=== PATIENT | male | born 1975 | race Caucasian/White ===

== ENCOUNTER → 2020-07-26 | Outpatient (CLI) | payer MEDICARE, OTHER ==
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
--- NOTE | 2020-07-26 12:34 | US ---
EXAMINATION TYPE: US gallbladder DATE OF EXAM: 07/26/2020 COMPARISON: NONE CLINICAL HISTORY: 45-year-old male R11.14 vomiting. Vomiting episodes since Apr 30, history of seizur es TECHNIQUE: Multiple sonographic images of the right upper quadrant are obtained. FINDINGS: EXAM MEASUREMENTS: Liver Length: 15.0 cm Gallbladder Wall: 0.3 cm CBD: 0.5 cm Right Kidney: 11.4 x 5.2 x 5.7 cm Pancreas: Only a portion of the pancreatic body is visualized. Remainder is secured by bowel gas sha dowing. Liver: Mild increased echogenicity. No focal lesion. Gallbladder: comet tail artifact along the anterior wall suggests adenomyomatosis. No hydropic mota e or shadowing calculi. No surrounding fluid. Evidence for sonographic Pickard's sign: no CBD: wnl Right Kidney: wnl IMPRESSION: 1. There may be mild fatty infiltration of the liver. 2. Incidental gallbladder wall adenomyomatosis. No gallstones or acute cholecystitis. 3. No biliary ductal dilatation.
== END | disposition home or self-care (01) ==
LOC: RADCTMAIN 09:54
PROVIDERS: ATTEND Family Medicine
DX: G31.9 Degenerative disease of nervous system, unspecified (principal); D13.5 Benign neoplasm of extrahepatic bile ducts; Z88.1 Allergy status to other antibiotic agents
CPT/HCPCS: 70450; 76705

== ENCOUNTER 2022-08-14 14:57 | Inpatient (IN) | payer MEDICARE, OTHER ==
[2022-08-14] MEDS ORDERED: LORazepam 0.5 MG TAB PO PRN (16:21)
[2022-08-14] MEDS ORDERED: LORazepam 1 MG TAB PO PRN ×4 (16:21)
[2022-08-14] MEDS ORDERED: THIAMINE 100 MG/ML 2 ML VIAL IM STA (16:21)
[2022-08-14] MEDS ORDERED: SODIUM CHLORIDE 0.9% 1,000 ML IV ONE (16:23)
[2022-08-14 17:19] LABS: ALT 33 U/L (4-49); AST 55 U/L (17-59); African American GFR (CKD) >90 (>60 ml/min/1.73 sqM); Albumin 2.2 g/dL (3.5-5.0); Alkaline Phosphatase 175 U/L (38-126); Amylase 83 U/L (30-110); Anion Gap 6 mmol/L; Blood Urea Nitrogen 10 mg/dL (9-20); Calcium 7.3 mg/dL (8.4-10.2); Carbon Dioxide 19 mmol/L (22-30); Chloride 113 mmol/L (98-107); Glucose 95 mg/dL (74-99); Lipase 402 U/L (23-300); Magnesium 1.7 mg/dL (1.6-2.3); Non-African American GFR(CKD) >90 (>60 ml/min/1.73 sqM); Phosphorus 3.9 mg/dL (2.5-4.5); Potassium 4.1 mmol/L (3.5-5.1); Sodium 138 mmol/L (137-145); Total Bilirubin 6.2 mg/dL (0.2-1.3)
[2022-08-14 17:31] LABS: Basophils % (A) 2 %; Eosinophils % (A) 2 %; HCT 33.8 % (39.0-53.0); HGB 11.8 gm/dL (13.0-17.5); Lymphocytes % (A) 41 %; MCH 39.1 pg (25.0-35.0); MCHC 34.9 g/dL (31.0-37.0); MCV 112.1 fL (80.0-100.0); Macrocytosis Marked; Mean Platelet Volume 9.2; Monocytes # (A) 0.3 k/uL (0-1.0); Monocytes % (A) 11 %; Neutrophils # (A) 1.1 k/uL (1.3-7.7); Neutrophils % (A) 42 %; RBC 3.02 m/uL (4.30-5.90); RDW 15.5 % (11.5-15.5); WBC 2.5 k/uL (3.8-10.6)
--- NOTE | 2022-08-14 18:01 | ED ---
Recheck HPI - General Chief Complaint: Recheck/Abnormal Lab/Rx Stated Complaint: Abd Labs Time Seen by Provider: 08/14/22 16:16 Source: patient, family Mode of arrival: wheelchair Limitations: no limitations - History of Present Illness Initial Comments: Patient is a 47-year-old male sent in by his PCP Dr. Gayle for evaluation of abnormal labs. Patient has history of liver disease, hepatitis B, HIV, schizophrenia, previous methamphetamine abuse. Patient admits to drinking 3 beers a day, his last drink was yesterday. Patient had labs drawn recently, they showed total bilirubin of 8.8 and ammonia 89. He is currently jaundice. Patient denies any abdominal pain, nausea, vomiting. No chest pain or difficulty breathing. Family at bedside notes that he was experiencing tremors and altered mental status yesterday. - Related Data Home Medications Medication Instructions Recorded Confirmed Bictegrav/Emtricit/Tenofov Ala 1 tab PO HS 08/14/22 08/14/22 [Biktarvy 50-200-25 mg Tablet] Lactulose [Constulose] 1 tsp PO DAILY 08/14/22 08/14/22 Melatonin [Melatonin Dissolving] 12 mg PO HS 08/14/22 08/14/22 Omeprazole 20 mg PO DAILY 08/14/22 08/14/22 QUEtiapine [SEROquel] 100 mg PO HS 08/14/22 08/14/22 Spironolactone [Aldactone] 25 mg PO DAILY 08/14/22 08/14/22 Thiamine [Vitamin B-1] 100 mg PO DAILY 08/14/22 08/14/22 levETIRAcetam [Keppra] 1,000 mg PO BID 08/14/22 08/14/22 Allergies Allergy/AdvReac Type Severity Reaction Status Date / Time ciprofloxacin [From Cipro] Allergy Rash/Hives Verified 08/14/22 17:53 ciprofloxacin HCl Allergy Rash/Hives Verified 08/14/22 17:53 [From Cipro] Review of Systems ROS Statement: Those systems with pertinent positive or pertinent negative responses have been documented in the HPI. ROS Other: All systems not noted in ROS Statement are negative. Past Medical History Past Medical History: Hyperlipidemia, Liver Disease, Neurologic Disorder, Skin Disorder, Thyroid Disorder Additional Past Medical History / Comment(s): HIV; hepatitis B (states he is cured); schizophrenia;occasionally has dizziness; History of Any Multi-Drug Resistant Organisms: MRSA Date of last positivie culture/infection: 12/19/14 MDRO Source:: Neck Additional Past Surgical History / Comment(s): fistula removal X2, eye Past Anesthesia/Blood Transfusion Reactions: No Reported Reaction Past Psychological History: Anxiety, Bipolar, Panic Disorder, Schizophrenia Smoking Status: Current every day smoker Past Alcohol Use History: Abuse, Daily, Heavy Past Drug Use History: Methamphetamine - Past Family History Father Family Medical History: Myocardial Infarction (CA) Mother Family Medical History: Cancer General Exam Limitations: no limitations General appearance: alert, in no apparent distress Head exam: Present: atraumatic, normocephalic, normal inspection Eye exam: Present: PERRL, EOMI, scleral icterus Neck exam: Present: normal inspection, full ROM Respiratory exam: Present: normal lung sounds bilaterally. Absent: respiratory distress, wheezes, rales, rhonchi, stridor Cardiovascular Exam: Present: regular rate, normal rhythm, normal heart sounds. Absent: systolic murmur, diastolic murmur, rubs, gallop, clicks GI/Abdominal exam: Present: soft. Absent: distended, tenderness, guarding, rebound, rigid Neurological exam: Present: alert, oriented X3, CN II-XII intact Psychiatric exam: Present: normal affect, normal mood Skin exam: Present: other (jaundiced). Absent: normal color Course Vital Signs 08/14/22 08/14/22 15:00 21:35 Temperature 98.1 F Pulse Rate 93 82 Respiratory 16 14 Rate Blood Pressure 108/71 101/68 O2 Sat by Pulse 100 100 Oximetry Medical Decision Making - Medical Decision Making Was pt. sent in by a medical professional or institution (, PA, COMMERCIAL TECHNICIAN, urgent care, hospital, or half-way...) When possible be specific @ -Sent in by PCP Dr. Gayle Did you speak to anyone other than the patient for history (EMS, parent, family, police, friend...)? What history was obtained from this source @ -No Did you review nursing and triage notes (agree or disagree)? Why? @ -I reviewed and agree with nursing and triage notes Were old charts reviewed (outside hosp., previous admission, EMS record, old EKG, old radiological studies, urgent care reports/EKG's, half-way records)? Report findings @ -No old charts were reviewed Differential Diagnosis (chest pain, altered mental status, abdominal pain women, abdominal pain men, vaginal bleeding, weakness, fever, dyspnea, syncope, he adache, dizziness, GI bleed, back pain, seizure, CVA, palpatations, mental health, musculoskeletal)? @ -[facility] Differential Altered Mental Status: Hypoglycemia, DKA, hypercapnia, ETOH, overdose, CO poisoning, trauma, myxedema coma, HTN encephalopathy, infection, encephalitis, psychosis, intercranial hemorrhage, hepatic encephalopathy, meningitis, CVA this is not meant to be an all-inclusive list EKG interpreted by me (3pts min.). @ -As above X-rays interpreted by me (1pt min.). @ -None done CT interpreted by me (1pt min.). @ -None done U/S interpreted by me (1pt. min.). @ -No discrete liver mass. There is shadowing at the neck of the gallbladder consistent with multiple gallstones. No dilated ducts. Mild gallbladder wall thickening. What testing was considered but not performed or refused? (CT, X-rays, U/S, labs)? Why? @ -None What meds were considered but not given or refused? Why? @ -None Did you discuss the management of the patient with other professionals (professionals i.e. , PA, COMMERCIAL TECHNICIAN, lab, RT, psych nurse, social sciences research scientist, scheduling agent, teacher, combatant diver officer, continuous pillowcase cutter)? Give summary @ -Discussed with admitting physician Dr. Collins Was smoking cessation discussed for >3mins.? @ -No Was critical care preformed (if so, how long)? @ -No Were there social determinants of health that impacted care today? How? (Homelessness, low income, unemployed, alcoholism, drug addiction, transportation, low edu. Level, literacy, decrease access to med. care, long term, rehab)? @ -Alcoholism Was there de-escalation of care discussed even if they declined (Discuss DNR or withdrawal of care, Hospice)? DNR status @ -No What co-morbidities impacted this encounter? (DM, HTN, Smoking, COPD, CAD, Cancer, CVA, ARF, Chemo, Hep., AIDS, mental health diagnosis, sleep apnea, morbid obesity)? @ -liver disease Was patient admitted / discharged? Hospital course, mention meds given and route, prescriptions, significant lab abnormalities, going to OR and other pertinent info. @ -Patient was admitted. This is a 47-year-old male sent in by his PCP Dr. Gayle for worsening labs related to his liver disease. History of alcoholism, admits to 3 drinks a day, last drink was last night. On physical examination patient is a and O 3, heart and lungs are clear to auscultation, no tenderness to palpation of abdomen. Lab work shows WBC 2.5 hemoglobin 11.8. Calcium 7.3. Total bilirubin 6.2. Alkaline phosphatase 125. Ammonia 90. Albumin 2.2. Lipase 402. Gallbladder ultrasound shows multiple gallstones but shadowing her neck and some gallbladder wall thickening. Patient was started on lactulose and IV fluids. Placed on CIWA protocol. All labs and imaging findings were discussed with my attending. I spoke with Dr. Collins who accepted admission of this patient. On reassessment patient is resting comfortably. No signs of distress. Patient is agreeable with this plan. I discussed this case in detail with my attending Dr. Roman. Undiagnosed new problem with uncertain prognosis? @ -No Drug Therapy requiring intensive monitoring for toxicity (Heparin, Nitro, Insulin, Cardizem)? @ -No Were any procedures done? @ -No Diagnosis/symptom? @ -Alcohol withdrawal Acute, or Chronic, or Acute on Chronic? @ -Acute Uncomplicated (without systemic symptoms) or Complicated (systemic symptoms)? @ -Complicated Side effects of treatment? @ -No Exacerbation, Progression, or Severe Exacerbation? @ -No Poses a threat to life or bodily function? How? (Chest pain, [place], CA, pneumonia, PE, COPD, DKA, ARF, appy, cholecystitis, CVA, Diverticulitis, Homicidal, Suicidal, threat to staff... and all critical care pts) @ -yes Diagnosis/symptom? @Liver disease Acute, or Chronic, or Acute on Chronic? @Chronic Uncomplicated (without systemic symptoms) or Complicated (systemic symptoms)? @Complicated Side effects of treatment? @ none Exacerbation, Progression, or Severe Exacerbation] @ no Poses a threat to life or bodily function? @Yes - Lab Data Result diagrams: 08/14/22 16:38 08/14/22 16:38 Lab Results 08/14/22 08/14/22 08/14/22 Range/Units 16:38 16:38 16:38 WBC 2.5 L (3.8-10.6) k/uL RBC 3.02 L (4.30-5.90) m/uL Hgb 11.8 L (13.0-17.5) gm/dL Hct 33.8 L (39.0-53.0) % MCV 112.1 H (80.0-100.0) fL MCH 39.1 H (25.0-35.0) pg MCHC 34.9 (31.0-37.0) g/dL RDW 15.5 (11.5-15.5) % Plt Count 43 L (150-450) k/uL MPV 9.2 Neutrophils % 42 % Lymphocytes % 41 % Monocytes % 11 % Eosinophils % 2 % Basophils % 2 % Neutrophils # 1.1 L (1.3-7.7) k/uL Lymphocytes # 1.0 (1.0-4.8) k/uL Monocytes # 0.3 (0-1.0) k/uL Eosinophils # 0.0 (0-0.7) k/uL Basophils # 0.0 (0-0.2) k/uL Manual Slide Review Performed Macrocytosis Marked A Rouleaux Present PT (9.0-12.0) sec INR (<1.2) APTT (22.0-30.0) sec Sodium 138 (137-145) mmol/L Potassium 4.1 (3.5-5.1) mmol/L Chloride 113 H (98-107) mmol/L Carbon Dioxide 19 L (22-30) mmol/L Anion Gap 6 mmol/L BUN 10 (9-20) mg/dL Creatinine 0.69 (0.66-1.25) mg/dL Est GFR (CKD-EPI)AfAm >90 (>60 ml/min/1.73 sqM) Est GFR (CKD-EPI)NonAf >90 (>60 ml/min/1.73 sqM) Glucose 95 (74-99) mg/dL Calcium 7.3 L (8.4-10.2) mg/dL Phosphorus 3.9 (2.5-4.5) mg/dL Magnesium 1.7 (1.6-2.3) mg/dL Total Bilirubin 6.2 H 6.1 H (0.2-1.3) mg/dL Conjugated Bilirubin 0.3 (0.0-0.3) mg/dL Unconjugated Bilirubin 2.9 H (0.0-1.1) mg/dL Delta Bilirubin 2.9 H (0.0-0.2) mg/dL AST 55 (17-59) U/L ALT 33 (4-49) U/L Alkaline Phosphatase 175 H (38-126) U/L Ammonia (<30) umol/L Total Protein 7.0 (6.3-8.2) g/dL Albumin 2.2 L (3.5-5.0) g/dL Amylase 83 (30-110) U/L Lipase 402 H (23-300) U/L Urine Color Urine Appearance (Clear) Urine pH (5.0-8.0) Ur Specific Cruger (1.001-1.035) Urine Protein (Negative) Urine Glucose (UA) (Negative) Urine Ketones (Negative) Urine Blood (Negative) Urine Nitrite (Negative) Urine Bilirubin (Negative) Urine Urobilinogen (<2.0) mg/dL Ur Leukocyte Esterase (Negative) Urine Opiates Screen (NotDetected) Ur Oxycodone Screen (NotDetected) Urine Methadone Screen (NotDetected) Ur Propoxyphene Screen (NotDetected) Ur Barbiturates Screen (NotDetected) U Tricyclic Antidepress (NotDetected) Ur Phencyclidine Scrn (NotDetected) Ur Amphetamines Screen (NotDetected) U Methamphetamines Scrn (NotDetected) U Benzodiazepines Scrn (NotDetected) Urine Cocaine Screen (NotDetected) U Marijuana (THC) Screen (NotDetected) 08/14/22 08/14/22 08/14/22 Range/Units 18:26 18:26 19:23 WBC (3.8-10.6) k/uL RBC (4.30-5.90) m/uL Hgb (13.0-17.5) gm/dL Hct (39.0-53.0) % MCV (80.0-100.0) fL MCH (25.0-35.0) pg MCHC (31.0-37.0) g/dL RDW (11.5-15.5) % Plt Count (150-450) k/uL MPV Neutrophils % % Lymphocytes % % Monocytes % % Eosinophils % % Basophils % % Neutrophils # (1.3-7.7) k/uL Lymphocytes # (1.0-4.8) k/uL Monocytes # (0-1.0) k/uL Eosinophils # (0-0.7) k/uL Basophils # (0-0.2) k/uL Manual Slide Review Macrocytosis Rouleaux PT (9.0-12.0) sec INR (<1.2) APTT (22.0-30.0) sec Sodium (137-145) mmol/L Potassium (3.5-5.1) mmol/L Chloride (98-107) mmol/L Carbon Dioxide (22-30) mmol/L Anion Gap mmol/L BUN (9-20) mg/dL Creatinine (0.66-1.25) mg/dL Est GFR (CKD-EPI)AfAm (>60 ml/min/1.73 sqM) Est GFR (CKD-EPI)NonAf (>60 ml/min/1.73 sqM) Glucose (74-99) mg/dL Calcium (8.4-10.2) mg/dL Phosphorus (2.5-4.5) mg/dL Magnesium (1.6-2.3) mg/dL Total Bilirubin (0.2-1.3) mg/dL Conjugated Bilirubin (0.0-0.3) mg/dL Unconjugated Bilirubin (0.0-1.1) mg/dL Delta Bilirubin (0.0-0.2) mg/dL AST (17-59) U/L ALT (4-49) U/L Alkaline Phosphatase (38-126) U/L Ammonia 90 H (<30) umol/L Total Protein (6.3-8.2) g/dL Albumin (3.5-5.0) g/dL Amylase (30-110) U/L Lipase (23-300) U/L Urine Color Dark Yellow Urine Appearance Clear (Clear) Urine pH 6.0 (5.0-8.0) Ur Specific Cruger 1.020 (1.001-1.035) Urine Protein Negative (Negative) Urine Glucose (UA) Negative (Negative) Urine Ketones Negative (Negative) Urine Blood Negative (Negative) Urine Nitrite Negative (Negative) Urine Bilirubin 1+ H (Negative) Urine Urobilinogen >12.0 (<2.0) mg/dL Ur Leukocyte Esterase Negative (Negative) Urine Opiates Screen Not Detected (NotDetected) Ur Oxycodone Screen Not Detected (NotDetected) Urine Methadone Screen Not Detected (NotDetected) Ur Propoxyphene Screen Not Detected (NotDetected) Ur Barbiturates Screen Not Detected (NotDetected) U Tricyclic Antidepress Detected H (NotDetected) Ur Phencyclidine Scrn Not Detected (NotDetected) Ur Amphetamines Screen Not Detected (NotDetected) U Methamphetamines Scrn Not Detected (NotDetected) U Benzodiazepines Scrn Not Detected (NotDetected) Urine Cocaine Screen Not Detected (NotDetected) U Marijuana (THC) Screen Not Detected (NotDetected) 08/14/22 Range/Units 19:23 WBC (3.8-10.6) k/uL RBC (4.30-5.90) m/uL Hgb (13.0-17.5) gm/dL Hct (39.0-53.0) % MCV (80.0-100.0) fL MCH (25.0-35.0) pg MCHC (31.0-37.0) g/dL RDW (11.5-15.5) % Plt Count (150-450) k/uL MPV Neutrophils % % Lymphocytes % % Monocytes % % Eosinophils % % Basophils % % Neutrophils # (1.3-7.7) k/uL Lymphocytes # (1.0-4.8) k/uL Monocytes # (0-1.0) k/uL Eosinophils # (0-0.7) k/uL Basophils # (0-0.2) k/uL Manual Slide Review Macrocytosis Rouleaux PT 22.7 H (9.0-12.0) sec INR 2.3 H (<1.2) APTT 35.6 H (22.0-30.0) sec Sodium (137-145) mmol/L Potassium (3.5-5.1) mmol/L Chloride (98-107) mmol/L Carbon Dioxide (22-30) mmol/L Anion Gap mmol/L BUN (9-20) mg/dL Creatinine (0.66-1.25) mg/dL Est GFR (CKD-EPI)AfAm (>60 ml/min/1.73 sqM) Est GFR (CKD-EPI)NonAf (>60 ml/min/1.73 sqM) Glucose (74-99) mg/dL Calcium (8.4-10.2) mg/dL Phosphorus (2.5-4.5) mg/dL Magnesium (1.6-2.3) mg/dL Total Bilirubin (0.2-1.3) mg/dL Conjugated Bilirubin (0.0-0.3) mg/dL Unconjugated Bilirubin (0.0-1.1) mg/dL Delta Bilirubin (0.0-0.2) mg/dL AST (17-59) U/L ALT (4-49) U/L Alkaline Phosphatase (38-126) U/L Ammonia (<30) umol/L Total Protein (6.3-8.2) g/dL Albumin (3.5-5.0) g/dL Amylase (30-110) U/L Lipase (23-300) U/L Urine Color Urine Appearance (Clear) Urine pH (5.0-8.0) Ur Specific Cruger (1.001-1.035) Urine Protein (Negative) Urine Glucose (UA) (Negative) Urine Ketones (Negative) Urine Blood (Negative) Urine Nitrite (Negative) Urine Bilirubin (Negative) Urine Urobilinogen (<2.0) mg/dL Ur Leukocyte Esterase (Negative) Urine Opiates Screen (NotDetected) Ur Oxycodone Screen (NotDetected) Urine Methadone Screen (NotDetected) Ur Propoxyphene Screen (NotDetected) Ur Barbiturates Screen (NotDetected) U Tricyclic Antidepress (NotDetected) Ur Phencyclidine Scrn (NotDetected) Ur Amphetamines Screen (NotDetected) U Methamphetamines Scrn (NotDetected) U Benzodiazepines Scrn (NotDetected) Urine Cocaine Screen (NotDetected) U Marijuana (THC) Screen (NotDetected) Disposition Clinical Impression: Alcohol withdrawal, Liver disease Disposition: ADMITTED IP TO THIS [facility] Condition: Fair Referrals: Phil Fox Jr, DO [Primary Care Provider] - 1-2 days Time of Disposition: 18:46
[2022-08-14 18:07] LABS: Platelet Count 43 k/uL (150-450)
[2022-08-14 18:08] LABS: Rouleaux Present
--- NOTE | 2022-08-14 18:24 | US ---
EXAMINATION TYPE: US gallbladder DATE OF EXAM: 08/14/2022 COMPARISON: 07/26/20 CLINICAL HISTORY: hx liver failure, jaundice. Hx of liver failure, jaundice TECHNIQUE: Multiple sonographic images of the right upper quadrant are obtained. FINDINGS: EXAM MEASUREMENTS: Liver Length: 14.1 cm Gallbladder Wall: 0.43 cm CBD: 0.43 cm Right Kidney: 13.2 x 7.3 x 7.8 cm FINANCIAL SERVICES COUNSELOR NOTES: Pancreas: Obscured by bowel gas Liver: Done intercostally, appears heterogeneous Gallbladder: Gallstone visualized Evidence for sonographic Pickard's sign: No CBD: wnl Right Kidney: Cyst seen in the inf pole measuring 2.7 x 3.1 x 2.0cm IMPRESSION: No discrete liver mass. There is shadowing at the neck of the gallbladder consistent with multiple ga llstones.. No dilated ducts. Mild gallbladder wall thickening suggestive of cholecystitis.
[2022-08-14 18:33] LABS: Bilirubin, Conjugated 0.3 mg/dL (0.0-0.3); Bilirubin, Delta 2.9 mg/dL (0.0-0.2); Bilirubin,Unconjugated 2.9 mg/dL (0.0-1.1); Total Bilirubin 6.1 mg/dL (0.2-1.3)
[2022-08-14] MEDS ORDERED: NALOXONE 0.4 MG/ML 1 ML VIAL IV PRN (18:44)
[2022-08-14 19:13] LABS: Phencyclidine Screen,Urine Not Detected (NotDetected); Urn Cannabinoid Scrn Not Detected (NotDetected)
[2022-08-14 19:14] LABS: Amphetamine Screen,Urine Not Detected (NotDetected); Barbiturate Screen,Urine Not Detected (NotDetected); Benzodiazepines Screen,Urine Not Detected (NotDetected); Cocaine Screen,Urine Not Detected (NotDetected); Methadone Screen, Urine Not Detected (NotDetected); Opiate Screen,Urine Not Detected (NotDetected); Oxycodone Screen, Urine Not Detected (NotDetected); Tricyclic Antidepressant,Urine Detected (NotDetected)
[2022-08-14 19:15] LABS: Appearance,Urine Clear (Clear); Bilirubin,Urine 1+ (Negative); Blood,Urine Negative (Negative); Color,Urine Dark Yellow; Glucose,Urine (UA) Negative (Negative); Ketones,Urine Negative (Negative); Leukocyte Esterase,Urine Negative (Negative); Nitrite,Urine Negative (Negative); Protein,Urine Negative (Negative); Urobilinogen,Urine >12.0 mg/dL (<2.0)
[2022-08-14] MEDS: SODIUM CHLORIDE 0.9% 1,000 ML IV SCH (19:35)
[2022-08-14 20:00] LABS: INR 2.3 (<1.2); Partial Thromboplastin Time 35.6 sec (22.0-30.0); Prothrombin Time 22.7 sec (9.0-12.0)
[2022-08-14] MEDS: LACTULOSE 20 GM/30 ML CUP PO SCH (22:09)
[2022-08-15] MEDS ORDERED: THIAMINE 100 MG TAB PO SCH ×2 (09:00→11:00)
[2022-08-15] MEDS ORDERED: SPIRONOLACTONE 25 MG TAB PO SCH (09:15)
[2022-08-15] MEDS ORDERED: PHYTONADIONE 5 MG in SODIUM CHLORIDE 0.9% 50 ML IVPB STA (09:24)
[2022-08-15] MEDS: LACTULOSE 20 GM/30 ML CUP PO SCH (10:18)
[2022-08-15] MEDS: levETIRAcetam 500 MG TAB PO SCH ×2 (10:18→21:27)
[2022-08-15] MEDS: SODIUM CHLORIDE 0.9% 1,000 ML IV SCH (10:24)
[2022-08-15] MEDS ORDERED: Magnesium Replacement Protocol 1 EACH MISC MISCELLANE PRN (10:53)
[2022-08-15 12:01] LABS: ALT 33 U/L (4-49); AST 59 U/L (17-59); African American GFR (CKD) >90 (>60 ml/min/1.73 sqM); Albumin 2.2 g/dL (3.5-5.0); Albumin/Globulin Ratio 0.4; Alkaline Phosphatase 172 U/L (38-126); Anion Gap 8 mmol/L; Blood Urea Nitrogen 8 mg/dL (9-20); Calcium 7.5 mg/dL (8.4-10.2); Carbon Dioxide 18 mmol/L (22-30); Chloride 112 mmol/L (98-107); Globulin 4.9 g/dL; Glucose 97 mg/dL (74-99); Non-African American GFR(CKD) >90 (>60 ml/min/1.73 sqM); Potassium 3.7 mmol/L (3.5-5.1); Sodium 138 mmol/L (137-145); Total Bilirubin 6.5 mg/dL (0.2-1.3); Total Protein 7.1 g/dL (6.3-8.2)
[2022-08-15 12:25] LABS: Basophils % (A) 1 %; Eosinophils # (A) 0.1 k/uL (0-0.7); Eosinophils % (A) 2 %; HCT 36.2 % (39.0-53.0); HGB 12.2 gm/dL (13.0-17.5); Lymphocytes # (A) 1.2 k/uL (1.0-4.8); Lymphocytes % (A) 43 %; MCH 38.5 pg (25.0-35.0); MCHC 33.6 g/dL (31.0-37.0); MCV 114.6 fL (80.0-100.0); Macrocytosis Marked; Mean Platelet Volume 9.7; Monocytes # (A) 0.3 k/uL (0-1.0); Monocytes % (A) 9 %; Neutrophils # (A) 1.1 k/uL (1.3-7.7); Neutrophils % (A) 42 %; Platelet Count 42 k/uL (150-450); RBC 3.16 m/uL (4.30-5.90); RDW 15.2 % (11.5-15.5); WBC 2.7 k/uL (3.8-10.6)
--- NOTE | 2022-08-15 13:28 | P.HPIM ---
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 Mother reports patient was just at the [facility] "liver clinic" with Dr. Medrano 3 days prior, esophageal varices discovered and patient is scheduled to return in 2 weeks for treatment. Family reported tremors and altered mental status.HIV medication regimen managed by Dr. Cabrales. Reports last drink was approximately 2 days ago and he did not consume his normal 15 beers that day but instead just two. Reports he hears voices daily with variation in severity.denies chest pain, palpitations or shortness of breath. Denies nausea ,vomiting. Recent labs reported T bili of 8.8, AST 86, ALT 35, alk phos 191 ammonia 89, INR 2.16, WBC 3.6, hemoglobin 12.2, MCV 114.7,platelets 46. PCP, had received call from [facility] of worsening labs, requiring hospitalization. PCP advised patient/family to return to [facility]. Mother brought patient in to our ER. Afebrile, W BC 2.5, hemoglobin 11.8, MCV 112.1, platelets 43, neutrophils 1.1, INR 2.3, chloride 113, bicarb 19, BUN 10, creatinine 0.69, calcium 7.3, total bilirubin 6.5, AST 59, ALT 33, alk phos 175, ammonia 90, albumin 2.2, lipase 402. They reported negative with 1+ urine bilirubin, toxicology detected tricyclic antidepressants, 0.5, lithium , Serum Alcohol ( add on lab) Less Than 10. Gallbladder ultrasound reporting no discrete liver mass, shadowing at the neck of the gallbladder consistent with multiple gallstones, mild gallbladder wall thickening suggestive of cholecystitis .Received IV fluid hydration, lactulose and placed on CIWA protocol.Currently alert and oriented 2-3,no tremors, CIWA score 0. Patient requires transfer to tertiary care center for worsening liver failure as there is no GI services available at this site this week. Patient is pre- established at [facility] Hepatology clinic with Dr. Medrano. PCP, Dr. Collins initiating transfer to [facility], case management, nursing, patient and family notified. Review of Systems ROS Statement: Those systems with pertinent positive or pertinent negative responses have been documented in the HPI. ROS Other: All systems not noted in ROS Statement are negative. Past Medical History Past Medical History: Hyperlipidemia, Liver Disease, Neurologic Disorder, Skin Disorder Additional Past Medical History / Comment(s): HIV; hepatitis B (states he is cured); schizophrenia;occasionally has dizziness; History of Any Multi-Drug Resistant Organisms: MRSA Date of last positivie culture/infection: 12/19/14 MDRO Source:: Neck Additional Past Surgical History / Comment(s): fistula removal X2, eye Past Anesthesia/Blood Transfusion Reactions: No Reported Reaction Past Psychological History: Anxiety, Bipolar, Panic Disorder, Schizophrenia Additional Psychological History / Comment(s): social anxiety; panic attacks in the past (states he is cured); feels like he is "guilty of PTSD, working on it in his own mind" Smoking Status: Current every day smoker Past Alcohol Use History: Abuse, Daily, Heavy Past Drug Use History: Methamphetamine Additional Drug Use History / Comment(s): told me he wants to "plead the fifth", and "declares no answer at this time" about last use of methamphetamines. - Past Family History Father Family Medical History: Myocardial Infarction (OR) Mother Family Medical History: Cancer Medications and Allergies Home Medications Medication Instructions Recorded Confirmed Type Bictegrav/Emtricit/Tenofov Ala 1 tab PO HS 08/14/22 08/14/22 History [Biktarvy 50-200-25 mg Tablet] Lactulose [Constulose] 1 tsp PO DAILY 08/14/22 08/14/22 History Melatonin [Melatonin Dissolving] 12 mg PO HS 08/14/22 08/14/22 History Omeprazole 20 mg PO DAILY 08/14/22 08/14/22 History QUEtiapine [SEROquel] 100 mg PO HS 08/14/22 08/14/22 History Spironolactone [Aldactone] 25 mg PO DAILY 08/14/22 08/14/22 History Thiamine [Vitamin B-1] 100 mg PO DAILY 08/14/22 08/14/22 History levETIRAcetam [Keppra] 1,000 mg PO BID 08/14/22 08/14/22 History Allergies Allergy/AdvReac Type Severity Reaction Status Date / Time ciprofloxacin [From Cipro] Allergy Rash/Hives Verified 08/14/22 17:53 ciprofloxacin HCl Allergy Rash/Hives Verified 08/14/22 17:53 [From Cipro] Physical Exam Vitals: Vital Signs Temp Pulse Pulse Resp BP BP Pulse Ox 08/15/22 03:41 98.1 F 73 17 113/77 100 08/15/22 03:14 98.4 F 89 16 117/76 98 08/15/22 02:30 80 97/66 08/15/22 02:00 76 98/66 08/15/22 01:30 77 117/70 08/15/22 01:00 78 114/79 08/15/22 00:30 95 113/77 08/15/22 00:00 84 128/78 08/14/22 23:30 102 H 113/72 08/14/22 23:00 71 98/57 08/14/22 22:30 70 103/73 08/14/22 22:00 69 101/68 08/14/22 21:35 82 14 101/68 100 08/14/22 21:30 75 120/76 100 08/14/22 21:00 79 105/82 100 08/14/22 20:30 84 117/84 100 08/14/22 20:00 83 117/75 100 08/14/22 19:30 73 131/85 08/14/22 19:00 87 117/71 99 08/14/22 18:30 65 113/77 100 08/14/22 18:20 100 08/14/22 15:00 98.1 F 93 16 108/71 100 Intake and Output 08/14/22 08/15/22 08/15/22 22:59 06:59 14:59 Other: Voiding Method Toilet Urinal # Voids 1 Weight 96.162 kg 96.162 kg General: The patient is sitting up in bed, awake, alert, jaundiced. HEENT: Atraumatic, Normocephalic, Sclera icterus. Neck supple, no JVD Cardiovascular: Normal S1-S2, regular rate and rhythm, no murmurs. Respiratory: Lungs clear to auscultation bilaterally with no wheezes rhonchi or rales. Gastrointestinal: Abdomen is soft, nontender, distended, positive ascites, no guarding. EXTR: Positive edema Neurological: Cranial nerves II through XII grossly intact Skin: Skin is warm and dry and no rashes noted. Results CBC & Chem 7: 08/15/22 10:59 08/15/22 10:59 Labs: Abnormal Lab Results - Last 24 Hours (Table) 08/14/22 08/14/22 08/14/22 Range/Units 16:38 16:38 16:38 WBC 2.5 L (3.8-10.6) k/uL RBC 3.02 L (4.30-5.90) m/uL Hgb 11.8 L (13.0-17.5) gm/dL Hct 33.8 L (39.0-53.0) % MCV 112.1 H (80.0-100.0) fL MCH 39.1 H (25.0-35.0) pg Plt Count 43 L (150-450) k/uL Neutrophils # 1.1 L (1.3-7.7) k/uL Macrocytosis Marked A PT (9.0-12.0) sec INR (<1.2) APTT (22.0-30.0) sec Chloride 113 H (98-107) mmol/L Carbon Dioxide 19 L (22-30) mmol/L Calcium 7.3 L (8.4-10.2) mg/dL Total Bilirubin 6.2 H 6.1 H (0.2-1.3) mg/dL Unconjugated Bilirubin 2.9 H (0.0-1.1) mg/dL Delta Bilirubin 2.9 H (0.0-0.2) mg/dL Alkaline Phosphatase 175 H (38-126) U/L Ammonia (<30) umol/L Albumin 2.2 L (3.5-5.0) g/dL Lipase 402 H (23-300) U/L Urine Bilirubin (Negative) U Tricyclic Antidepress (NotDetected) 08/14/22 08/14/22 08/14/22 Range/Units 18:26 18:26 19:23 WBC (3.8-10.6) k/uL RBC (4.30-5.90) m/uL Hgb (13.0-17.5) gm/dL Hct (39.0-53.0) % MCV (80.0-100.0) fL MCH (25.0-35.0) pg Plt Count (150-450) k/uL Neutrophils # (1.3-7.7) k/uL Macrocytosis PT (9.0-12.0) sec INR (<1.2) APTT (22.0-30.0) sec Chloride (98-107) mmol/L Carbon Dioxide (22-30) mmol/L Calcium (8.4-10.2) mg/dL Total Bilirubin (0.2-1.3) mg/dL Unconjugated Bilirubin (0.0-1.1) mg/dL Delta Bilirubin (0.0-0.2) mg/dL Alkaline Phosphatase (38-126) U/L Ammonia 90 H (<30) umol/L Albumin (3.5-5.0) g/dL Lipase (23-300) U/L Urine Bilirubin 1+ H (Negative) U Tricyclic Antidepress Detected H (NotDetected) 08/14/22 Range/Units 19:23 WBC (3.8-10.6) k/uL RBC (4.30-5.90) m/uL Hgb (13.0-17.5) gm/dL Hct (39.0-53.0) % MCV (80.0-100.0) fL MCH (25.0-35.0) pg Plt Count (150-450) k/uL Neutrophils # (1.3-7.7) k/uL Macrocytosis PT 22.7 H (9.0-12.0) sec INR 2.3 H (<1.2) APTT 35.6 H (22.0-30.0) sec Chloride (98-107) mmol/L Carbon Dioxide (22-30) mmol/L Calcium (8.4-10.2) mg/dL Total Bilirubin (0.2-1.3) mg/dL Unconjugated Bilirubin (0.0-1.1) mg/dL Delta Bilirubin (0.0-0.2) mg/dL Alkaline Phosphatase (38-126) U/L Ammonia (<30) umol/L Albumin (3.5-5.0) g/dL Lipase (23-300) U/L Urine Bilirubin (Negative) U Tricyclic Antidepress (NotDetected) Assessment and Plan Assessment: Alcohol abuse Hepatic encephalopathy Chronic Liver failure, worsening follows at the Hepatology clinic at [facility], recently there 3 days prior to admission Pancytopenia secondary to the above Hypercoagulopathy secondary to liver failure Mother at bedside, Reports esophageal varices discovered at [facility] and scheduled for further treatment in [address] Medrano. HIV Disease Bipolar disorder Nicotine dependence Plan: Continue on current medication regime ,monitoring and symptomatic treatment. Patient requires transfer to tertiary care [place] for worsening liver failure as there is no GI services available at this site this week. Patient is pre-established at [facility] Hepatology clinic with Dr. Medrano. PCP, Dr. Collins initiating transfer to [facility], case management, nursing, patient and family notified. Patient will transfer to tertiary [facility] in stable condition with guarded prognosis pending bed availability. Refer to attached current med list. The impression and plan of care has been dictated as directed. : I performed a history and examination of this patient, discussed the same with the dictator. I agree with the dictator's note ,documented as a scribe. Any additional findings or plans will be noted.
[2022-08-15 13:33] LABS: Eosinophils # (M) 0.05 k/uL (0-0.7); Lymphocytes # (M) 1.35 k/uL (1.0-4.8); Monocytes # (M) 0.16 k/uL (0-1.0); Neutrophils # (M) 1.13 k/uL (1.3-7.7); Neutrophils % (M) 42 %; Nucleated Red Blood Cells 0 /100 WBC (0-0); Total Cells Counted 100
[2022-08-15 13:36] LABS: Poikilocytosis (M) Present; Rouleaux Present
[2022-08-15 13:49] VITALS: RESP 17
--- NOTE | 2022-08-15 14:07 | P.CN ---
Psychiatric Consult - . Consult date: 08/15/22 Consult:: 08/15/22 14:06 IDENTIFYING DATA: This patient is a 47 year old male with a significant history of alcohol use disorder, methamphetamine use and schizohprenia who presented to our hospital on 08/15/2022 for abnormal labs. HISTORY OF PRESENT ILLNESS: The patient presented to the hospital on 08/15/2022, brought to the hospital on the recommendation by his primary care physician for worsening labs. The patient does have a significant history of alcohol abuse with chronic liver failure and pancytopenia. Psychiatry has been consulted for evaluation and management of schizophrenia. Present next to patient is his mother and father. Patient is agreeable to having them present during the psychiatric interview. Currently, the patient is vehemently denying any suicidal or homicidal ideation, intention, and/or plan. He reports no significant symptoms of depression. He denies any significant symptoms of britany or hypomania. He denies any increased goal directed activity, grandiosity, or periods of excessive energy. The patient reports occasionally experiencing auditory hallucinations however states that they are well managed and is not expressing any concerns or ego dystonic feelings regarding the hallucinations. He reports they are rare and may happen once a week. He reports no command-type hallucinations. He reports no visual hallucinations. He has been adherent with his seroquel and reports it is doing well. He follows with Dr Allen at [facility] outpatient. His family confirms that the patient has been doing well. He has been cutting down on his alcohol intake. PAST PSYCHIATRIC HISTORY: Patient has a history of schizohprenia, alcohol use disorder, and methamphetamine use disorder. He reports last being hospitalized at [facility] 2 years ago. Prior to this his last hospitalization was on our unit in 2014. Patient is open with [facility] and sees Dr Allen. Patient denies any history of suicide attempts in the past. PAST MEDICAL HISTORY: Past Medical History: Hyperlipidemia, Liver Disease, Neurologic Disorder, Skin Disorder Additional Past Medical History / Comment(s): HIV; hepatitis B (states he is cured); schizophrenia;occasionally has dizziness; History of Any Multi-Drug Resistant Organisms: MRSA Date of last positivie culture/infection: 12/19/14 MDRO Source:: Neck Additional Past Surgical History / Comment(s): fistula removal X2, eye Past Anesthesia/Blood Transfusion Reactions: No Reported Reaction Past Psychological History: Anxiety, Bipolar, Panic Disorder, Schizophrenia Additional Psychological History / Comment(s): social anxiety; panic attacks in the past (states he is cured); feels like he is "guilty of PTSD, working on it in his own mind" ALLERGIES: ciprofloxacin CHEMICAL DEPENDENCY HISTORY: Smoking Status: Current every day smoker Past Alcohol Use History: Abuse, Daily, Heavy Past Drug Use History: Methamphetamine Additional Drug Use History / Comment(s): Denies any other drug use. FAMILY PSYCHIATRIC/SUBSTANCE USE HISTORY: No reported family psychiatric history SOCIAL HISTORY: Patient was born and raised in [place], [place]. He currently receives disability. He has his college degree. He is single, never , and has no children. He denies any legal issues. He reports some temple affiliation. He currently lives with his mother. MENTAL STATUS EXAM: General Appearance: Patient appears to be stated age is alert, pleasant, and cooperative. Patient appears to have fair hygiene and grooming wearing hospital gown with fair eye contact. Multiple tattoos. Behavior: Patient is calmly lying in bed without any agitated behavior. Speech: Patient's speech is fluent and nonpressured. Mood/Affect: Patient reports their mood is "pretty good", affect is congruent and bright. Suicidality/Homicidality: Patient denies having any suicidal or homicidal ideation intent or plan. Perceptions: Patient denies any visual hallucinations but reports rare auditory hallucinations. Though content/process: There is no evidence of any delusional thought content and thought process is linear and goal-directed. Memory and concentration: AOX3, grossly intact for the purposes of this session. Can spell "WORLD" backwards Judgment and insight: Fair Vital Signs Temp 98.4 F 08/15/22 13:29 Pulse 81 08/15/22 13:29 Resp 17 08/15/22 13:29 BP 116/68 08/15/22 13:29 Pulse Ox 100 08/15/22 13:29 FiO2 Intake & Output 08/14/22 08/15/22 08/15/22 18:59 06:59 18:59 Intake Total 354 Balance 354 Weight 96.162 kg 96.162 kg Intake: Oral 354 Other: Voiding Method Toilet Toilet Urinal Urinal # Voids 1 Laboratory Results WBC 2.7 k/uL (3.8-10.6) L 08/15/22 10:59 RBC 3.16 m/uL (4.30-5.90) L 08/15/22 10:59 Hgb 12.2 gm/dL (13.0-17.5) L 08/15/22 10:59 Hct 36.2 % (39.0-53.0) L 08/15/22 10:59 MCV 114.6 fL (80.0-100.0) H 08/15/22 10:59 MCH 38.5 pg (25.0-35.0) H 08/15/22 10:59 MCHC 33.6 g/dL (31.0-37.0) 08/15/22 10:59 RDW 15.2 % (11.5-15.5) 08/15/22 10:59 Plt Count 42 k/uL (150-450) L 08/15/22 10:59 MPV 9.7 08/15/22 10:59 Neutrophils % 42 % 08/15/22 10:59 Neutrophils % (Manual) 42 % 08/15/22 10:59 Lymphocytes % 43 % 08/15/22 10:59 Lymphocytes % (Manual) 50 % 08/15/22 10:59 Monocytes % 9 % 08/15/22 10:59 Monocytes % (Manual) 6 % 08/15/22 10:59 Eosinophils % 2 % 08/15/22 10:59 Eosinophils % (Manual) 2 % 08/15/22 10:59 Basophils % 1 % 08/15/22 10:59 Neutrophils # 1.1 k/uL (1.3-7.7) L 08/15/22 10:59 Neutrophils # (Manual) 1.13 k/uL (1.3-7.7) L 08/15/22 10:59 Lymphocytes # 1.2 k/uL (1.0-4.8) 08/15/22 10:59 Lymphocytes # (Manual) 1.35 k/uL (1.0-4.8) 08/15/22 10:59 Monocytes # 0.3 k/uL (0-1.0) 08/15/22 10:59 Monocytes # (Manual) 0.16 k/uL (0-1.0) 08/15/22 10:59 Eosinophils # 0.1 k/uL (0-0.7) 08/15/22 10:59 Eosinophils # (Manual) 0.05 k/uL (0-0.7) 08/15/22 10:59 Basophils # 0.0 k/uL (0-0.2) 08/15/22 10:59 Nucleated RBCs 0 /100 WBC (0-0) 08/15/22 10:59 Manual Slide Review Performed 08/15/22 10:59 Poikilocytosis (manual Present 08/15/22 10:59 Macrocytosis Marked A 08/15/22 10:59 Rouleaux Present 08/15/22 10:59 PT 22.7 sec (9.0-12.0) H 08/14/22 19: INR 2.3 (<1.2) H 08/14/22 19: APTT 35.6 sec (22.0-30.0) H 08/14/22 19: Fibrinogen 87 mg/dL (200-500) L 08/15/22 10:20 Sodium 138 mmol/L (137-145) 08/15/22 10:59 Potassium 3.7 mmol/L (3.5-5.1) 08/15/22 10:59 Chloride 112 mmol/L (98-107) H 08/15/22 10:59 Carbon Dioxide 18 mmol/L (22-30) L 08/15/22 10:59 Anion Gap 8 mmol/L 08/15/22 10:59 BUN 8 mg/dL (9-20) L 08/15/22 10:59 Creatinine 0.60 mg/dL (0.66-1.25) L 08/15/22 10:59 Est GFR (CKD-EPI)AfAm >90 (>60 ml/min/1.73 sqM) 08/15/22 10:59 Est GFR (CKD-EPI)NonAf >90 (>60 ml/min/1.73 sqM) 08/15/22 10:59 Glucose 97 mg/dL (74-99) 08/15/22 10:59 Calcium 7.5 mg/dL (8.4-10.2) L 08/15/22 10:59 Phosphorus 3.9 mg/dL (2.5-4.5) 08/14/22 16:38 Magnesium 1.7 mg/dL (1.6-2.3) 08/14/22 16:38 Total Bilirubin 6.5 mg/dL (0.2-1.3) H 08/15/22 10:59 Conjugated Bilirubin 0.3 mg/dL (0.0-0.3) 08/14/22 16:38 Unconjugated Bilirubin 2.9 mg/dL (0.0-1.1) H 08/14/22 16:38 Delta Bilirubin 2.9 mg/dL (0.0-0.2) H 08/14/22 16:38 AST 59 U/L (17-59) 08/15/22 10:59 ALT 33 U/L (4-49) 08/15/22 10:59 Alkaline Phosphatase 172 U/L (38-126) H 08/15/22 10:59 Ammonia 90 umol/L (<30) H 08/14/22 19:23 Total Protein 7.1 g/dL (6.3-8.2) 08/15/22 10:59 Albumin 2.2 g/dL (3.5-5.0) L 08/15/22 10:59 Globulin 4.9 g/dL 08/15/22 10:59 Albumin/Globulin Ratio 0.4 08/15/22 10:59 Amylase 83 U/L (30-110) 08/14/22 16:38 Lipase 402 U/L (23-300) H 08/14/22 16:38 Urine Color Dark Yellow 08/14/22 18:26 Urine Appearance Clear (Clear) 08/14/22 18:26 Urine pH 6.0 (5.0-8.0) 08/14/22 18:26 Ur Specific [place] 1.020 (1.001-1.035) 08/14/22 18:26 Urine Protein Negative (Negative) 08/14/22 18:26 Urine Glucose (UA) Negative (Negative) 08/14/22 18:26 Urine Ketones Negative (Negative) 08/14/22 18:26 Urine Blood Negative (Negative) 08/14/22 18:26 Urine Nitrite Negative (Negative) 08/14/22 18:26 Urine Bilirubin 1+ (Negative) H 08/14/22 18:26 Urine Urobilinogen >12.0 mg/dL (<2.0) 08/14/22 18:26 Ur Leukocyte Esterase Negative (Negative) 08/14/22 18:26 Urine Opiates Screen Not Detected (NotDetected) 08/14/22 18:26 Ur Oxycodone Screen Not Detected (NotDetected) 08/14/22 18:26 Urine Methadone Screen Not Detected (NotDetected) 08/14/22 18:26 Ur Propoxyphene Screen Not Detected (NotDetected) 08/14/22 18:26 Ur Barbiturates Screen Not Detected (NotDetected) 08/14/22 18:26 U Tricyclic Antidepress Detected (NotDetected) H 08/14/22 18:26 Ur Phencyclidine Scrn Not Detected (NotDetected) 08/14/22 18:26 Ur Amphetamines Screen Not Detected (NotDetected) 08/14/22 18:26 U Methamphetamines Scrn Not Detected (NotDetected) 08/14/22 18:26 U Benzodiazepines Scrn Not Detected (NotDetected) 08/14/22 18:26 Urine Cocaine Screen Not Detected (NotDetected) 08/14/22 18:26 U Marijuana (THC) Screen Not Detected (NotDetected) 08/14/22 18:26 Serum Alcohol <10 mg/dL 08/15/22 09:23 IMPRESSIONS: Alcohol use disorder Chronic liver failure Pancytopenia secondary to chronic liver failure Schizophrenia, stable PLAN: -Continue your medical management. -At this time patient DOES NOT meet criteria for inpatient psychiatric admission. Patient has not presented with imminent risk of harm to self or others. He is not acutely manic or psychotic. -Delirium precautions recommended with patient including - avoiding use of narcotics and BIG 6 DEALER sedatives, limit anticholinergic medications when possible, frequent re-orientation, minimize use of restraints, open window shades during the day and close them at night -Would recommend the following medication changes/additions: No medication changes. Continue prescribed home regimen. Seroquel 100 mg at bedtime for mood stabilization/psychosis. Suspect panctyopenia related to chronic liver failure and not seroquel. -Recommend outpatient psychiatric follow-up with Dr. Allen at [facility] -Psychiatry will sign off at this point, please contact with any questions. 08/15/22 14:06
--- NOTE | 2022-08-15 14:14 | P.GSCN ---
History of Present Illness Consult date: 08/15/22 History of present illness: CHIEF COMPLAINT: Abnormal labs HISTORY OF PRESENT ILLNESS: This is a 47-year-old male with a history of liver failure, hepatitis B, HIV, alcohol abuse, schizophrenia and previous meth abuse. Patient presents to the hospital due to abnormal labs in the outpatient setting. He had elevated ammonia level and elevated total bilirubin. Patient follows at [facility] with a liver specialist. Patient does have abdominal distention. Reports some mild discomfort in the right upper quadrant. No nausea or vomiting noted. Ultrasound had showed evidence of gallstones in the gallbladder neck with gallbladder wall thickening. Patient currently is in the process of being transferred to [facility]. Surgical service consulted in regards to abnormal gallbladder ultrasound and abdominal distention with liver failure and jaundice. There is no GI service available this week. PAST MEDICAL HISTORY: See below PAST SURGICAL HISTORY: See below MEDICATIONS: See below ALLERGIES: See below SOCIAL HISTORY: No illicit drug use. REVIEW OF SYSTEMS: CONSTITUTIONAL: Denies fever or chills. HEENT: Denies blurred vision, vision changes, or eye pain. Denies hemoptysis CARDIOVASCULAR: Denies chest pain or pressure. RESPIRATORY: No shortness of breath. GASTROINTESTINAL: See HPI for pertinent findings HEMATOLOGIC: Denies bleeding disorders. GENITOURINARY: Denies any blood in urine or increased urinary frequency. SKIN: Denies pruitis. Denies rash. PHYSICAL EXAM: VITAL SIGNS: Reviewed GENERAL: Well-developed in no acute distress. HEENT: sclera icterus present. ABDOMEN: Distended. Positive ascites. Minimal discomfort with palpation of the right upper quadrant NEUROLOGIC: Awake and alert LABORATORY DATA: WBC is 2.7 Hgb 12.2 platelets 42 Na138 Potassium 3.7 creatinine 0.60 Total bilirubin 6.5 AST 59 ALT 33 alk phos 172 Ammonia level elevated at 90 Lipase 402 Urinalysis drug screen tricyclic antidepressants detected. Alcohol level less than 10 IMAGING: Gallbladder ultrasound no discrete liver mass. There is shadowing at the neck of the gallbladder consistent with multiple gallstones. No dilated ducts. Mild gallbladder wall thickening suggestive of cholecystitis ASSESSMENT: 1. Chronic cholecystitis. Cholelithiasis and mild gallbladder wall thickening noted on ultrasound 2. Liver failure PLAN: -Agree with transfer to [facility] to be evaluated by a liver specialist. There is no GI service available this week. -No surgical intervention planned -Patient considered a high risk surgical candidate -Continue supportive care -Recommend low-fat diet Physician Value Engineer note has been reviewed by physician. Signing provider agrees with the documented findings, assessment, and plan of care. Past Medical History Past Medical History: Hyperlipidemia, Liver Disease, Neurologic Disorder, Skin Disorder Additional Past Medical History / Comment(s): HIV; hepatitis B (states he is cured); schizophrenia;occasionally has dizziness; History of Any Multi-Drug Resistant Organisms: MRSA Year Discovered:: 12/19/14 MDRO Source:: Neck Additional Past Surgical History / Comment(s): fistula removal X2, eye Past Anesthesia/Blood Transfusion Reactions: No Reported Reaction Past Psychological History: Anxiety, Bipolar, Panic Disorder, Schizophrenia Additional Psychological History / Comment(s): social anxiety; panic attacks in the past (states he is cured); feels like he is "guilty of PTSD, working on it in his own mind" Smoking Status: Current every day smoker Past Alcohol Use History: Abuse, Daily, Heavy Past Drug Use History: Methamphetamine Additional Drug Use History / Comment(s): told me he wants to "plead the fifth", and "declares no answer at this time" about last use of methamphetamines. - Past Family History Father Family Medical History: Myocardial Infarction ([place]) Mother Family Medical History: Cancer Medications and Allergies Home Medications Medication Instructions Recorded Confirmed Type Bictegrav/Emtricit/Tenofov Ala 1 tab PO HS 08/14/22 08/14/22 History [Biktarvy 50-200-25 mg Tablet] Lactulose [Constulose] 1 tsp PO DAILY 08/14/22 08/14/22 History Melatonin [Melatonin Dissolving] 12 mg PO HS 08/14/22 08/14/22 History Omeprazole 20 mg PO DAILY 08/14/22 08/14/22 History QUEtiapine [SEROquel] 100 mg PO HS 08/14/22 08/14/22 History Spironolactone [Aldactone] 25 mg PO DAILY 08/14/22 08/14/22 History Thiamine [Vitamin B-1] 100 mg PO DAILY 08/14/22 08/14/22 History levETIRAcetam [Keppra] 1,000 mg PO BID 08/14/22 08/14/22 History Allergies Allergy/AdvReac Type Severity Reaction Status Date / Time ciprofloxacin [From Cipro] Allergy Rash/Hives Verified 08/14/22 17:53 ciprofloxacin HCl Allergy Rash/Hives Verified 08/14/22 17:53 [From Cipro] Surgical - Exam Vital Signs Temp Pulse Resp BP Pulse Ox 98.1 F 93 16 108/71 100 08/14/22 15:00 08/14/22 15:00 08/14/22 15:00 08/14/22 15:00 08/14/22 15:00 Results - Labs 08/15/22 10:59 08/15/22 10:59 Abnormal Lab Results - Last 24 Hours (Table) 08/14/22 08/14/22 08/14/22 Range/Units 16:38 16:38 16:38 WBC 2.5 L (3.8-10.6) k/uL RBC 3.02 L (4.30-5.90) m/uL Hgb 11.8 L (13.0-17.5) gm/dL Hct 33.8 L (39.0-53.0) % MCV 112.1 H (80.0-100.0) fL MCH 39.1 H (25.0-35.0) pg Plt Count 43 L (150-450) k/uL Neutrophils # 1.1 L (1.3-7.7) k/uL Macrocytosis Marked A PT (9.0-12.0) sec INR (<1.2) APTT (22.0-30.0) sec Fibrinogen (200-500) mg/dL Chloride 113 H (98-107) mmol/L Carbon Dioxide 19 L (22-30) mmol/L Calcium 7.3 L (8.4-10.2) mg/dL Total Bilirubin 6.2 H 6.1 H (0.2-1.3) mg/dL Unconjugated Bilirubin 2.9 H (0.0-1.1) mg/dL Delta Bilirubin 2.9 H (0.0-0.2) mg/dL Alkaline Phosphatase 175 H (38-126) U/L Ammonia (<30) umol/L Albumin 2.2 L (3.5-5.0) g/dL Lipase 402 H (23-300) U/L Urine Bilirubin (Negative) U Tricyclic Antidepress (NotDetected) 08/14/22 08/14/22 08/14/22 Range/Units 18:26 18:26 19:23 WBC (3.8-10.6) k/uL RBC (4.30-5.90) m/uL Hgb (13.0-17.5) gm/dL Hct (39.0-53.0) % MCV (80.0-100.0) fL MCH (25.0-35.0) pg Plt Count (150-450) k/uL Neutrophils # (1.3-7.7) k/uL Macrocytosis PT (9.0-12.0) sec INR (<1.2) APTT (22.0-30.0) sec Fibrinogen (200-500) mg/dL Chloride (98-107) mmol/L Carbon Dioxide (22-30) mmol/L Calcium (8.4-10.2) mg/dL Total Bilirubin (0.2-1.3) mg/dL Unconjugated Bilirubin (0.0-1.1) mg/dL Delta Bilirubin (0.0-0.2) mg/dL Alkaline Phosphatase (38-126) U/L Ammonia 90 H (<30) umol/L Albumin (3.5-5.0) g/dL Lipase (23-300) U/L Urine Bilirubin 1+ H (Negative) U Tricyclic Antidepress Detected H (NotDetected) 08/14/22 08/15/22 Range/Units 19:23 10:20 WBC (3.8-10.6) k/uL RBC (4.30-5.90) m/uL Hgb (13.0-17.5) gm/dL Hct (39.0-53.0) % MCV (80.0-100.0) fL MCH (25.0-35.0) pg Plt Count (150-450) k/uL Neutrophils # (1.3-7.7) k/uL Macrocytosis PT 22.7 H (9.0-12.0) sec INR 2.3 H (<1.2) APTT 35.6 H (22.0-30.0) sec Fibrinogen 87 L (200-500) mg/dL Chloride (98-107) mmol/L Carbon Dioxide (22-30) mmol/L Calcium (8.4-10.2) mg/dL Total Bilirubin (0.2-1.3) mg/dL Unconjugated Bilirubin (0.0-1.1) mg/dL Delta Bilirubin (0.0-0.2) mg/dL Alkaline Phosphatase (38-126) U/L Ammonia (<30) umol/L Albumin (3.5-5.0) g/dL Lipase (23-300) U/L Urine Bilirubin (Negative) U Tricyclic Antidepress (NotDetected) Diabetes panel 08/14/22 Range/Units 16:38 Sodium 138 (137-145) mmol/L Potassium 4.1 (3.5-5.1) mmol/L Chloride 113 H (98-107) mmol/L Carbon Dioxide 19 L (22-30) mmol/L BUN 10 (9-20) mg/dL Creatinine 0.69 (0.66-1.25) mg/dL Glucose 95 (74-99) mg/dL Calcium 7.3 L (8.4-10.2) mg/dL AST 55 (17-59) U/L ALT 33 (4-49) U/L Alkaline Phosphatase 175 H (38-126) U/L Total Protein 7.0 (6.3-8.2) g/dL Albumin 2.2 L (3.5-5.0) g/dL Calcium panel 08/14/22 Range/Units 16:38 Calcium 7.3 L (8.4-10.2) mg/dL Phosphorus 3.9 (2.5-4.5) mg/dL Albumin 2.2 L (3.5-5.0) g/dL Pituitary panel 08/14/22 Range/Units 16:38 Sodium 138 (137-145) mmol/L Potassium 4.1 (3.5-5.1) mmol/L Chloride 113 H (98-107) mmol/L Carbon Dioxide 19 L (22-30) mmol/L BUN 10 (9-20) mg/dL Creatinine 0.69 (0.66-1.25) mg/dL Glucose 95 (74-99) mg/dL Calcium 7.3 L (8.4-10.2) mg/dL Adrenal panel 08/14/22 08/14/22 Range/Units 16:38 16:38 Sodium 138 (137-145) mmol/L Potassium 4.1 (3.5-5.1) mmol/L Chloride 113 H (98-107) mmol/L Carbon Dioxide 19 L (22-30) mmol/L BUN 10 (9-20) mg/dL Creatinine 0.69 (0.66-1.25) mg/dL Glucose 95 (74-99) mg/dL Calcium 7.3 L (8.4-10.2) mg/dL Total Bilirubin 6.2 H 6.1 H (0.2-1.3) mg/dL AST 55 (17-59) U/L ALT 33 (4-49) U/L Alkaline Phosphatase 175 H (38-126) U/L Total Protein 7.0 (6.3-8.2) g/dL Albumin 2.2 L (3.5-5.0) g/dL
[2022-08-15] MEDS ORDERED: LACTULOSE 20 GM/30 ML CUP PO SCH (16:00)
--- NOTE | 2022-08-15 18:46 | P.CONS ---
History of Present Illness - Reason for Consult Consult date: 08/15/22 pancytopenia Requesting physician: Alden Collins - Chief Complaint shakiness and confusion - History of Present Illness Patient is a 47-year-old male with a history of liver failure, hepatitis B, HIV, alcohol abuse, schizophrenia and previous meth abuse. He presented to the ER with confusion and shaikness, and abnormal labs, with an elevated ammonia level and elevated total bilirubin. Mother states he has been trying to cut back on alcohol and has tried to switch to non-alcoholic beer. Patient reports he typically drinks a case of beer a day, and rarely drinks liqour. Patient reports he follows at [facility] with a liver specialist. Pt reports improveme nt today and patient is A&Ox3 and is answering questions appropriately. He reports he a hx of ascites in April of 2022. Denies blood in stool, but does report occasional epistaxis. Denies any current episodes of bleeding. Denies abdominal pain and distention, n/v/d, fever and chills. Ultrasound revealed no discrete liver mass. There is shadowing at the neck of the gallbladder consistent with multiple gallstones. No dilated ducts. Mild gallbladder wall thickening suggestive of cholecyctitis. Hgb 11.8, platelets 43,000, bilirubin 6.1, and INR 2.3. Dose of vitamin K given upon admission. Surgery has been consulted for US findings. Review of Systems 10 point ROS is negative except as stated in HPI Past Medical History Past Medical History: Hyperlipidemia, Liver Disease, Neurologic Disorder, Skin Disorder Additional Past Medical History / Comment(s): HIV; hepatitis B (states he is cured); schizophrenia;occasionally has dizziness; History of Any Multi-Drug Resistant Organisms: MRSA Year Discovered:: 12/19/14 MDRO Source:: Neck Additional Past Surgical History / Comment(s): fistula removal X2, eye Past Anesthesia/Blood Transfusion Reactions: No Reported Reaction Past Psychological History: Anxiety, Bipolar, Panic Disorder, Schizophrenia Additional Psychological History / Comment(s): social anxiety; panic attacks in the past (states he is cured); feels like he is "guilty of PTSD, working on it in his own mind" Smoking Status: Current every day smoker Past Alcohol Use History: Abuse, Daily, Heavy Past Drug Use History: Methamphetamine Additional Drug Use History / Comment(s): told me he wants to "plead the fifth", and "declares no answer at this time" about last use of methamphetamines. - Past Family History Father Family Medical History: Myocardial Infarction ([place]) Mother Family Medical History: Cancer Medications and Allergies Home Medications Medication Instructions Recorded Confirmed Type Bictegrav/Emtricit/Tenofov Ala 1 tab PO HS 08/14/22 08/14/22 History [Biktarvy 50-200-25 mg Tablet] Lactulose [Constulose] 1 tsp PO DAILY 08/14/22 08/14/22 History Melatonin [Melatonin Dissolving] 12 mg PO HS 08/14/22 08/14/22 History Omeprazole 20 mg PO DAILY 08/14/22 08/14/22 History QUEtiapine [SEROquel] 100 mg PO HS 08/14/22 08/14/22 History Spironolactone [Aldactone] 25 mg PO DAILY 08/14/22 08/14/22 History Thiamine [Vitamin B-1] 100 mg PO DAILY 08/14/22 08/14/22 History levETIRAcetam [Keppra] 1,000 mg PO BID 08/14/22 08/14/22 History Allergies Allergy/AdvReac Type Severity Reaction Status Date / Time ciprofloxacin [From Cipro] Allergy Rash/Hives Verified 08/14/22 17:53 ciprofloxacin HCl Allergy Rash/Hives Verified 08/14/22 17:53 [From Cipro] Physical Exam Vitals: Vital Signs Temp Pulse Pulse Resp BP BP Pulse Ox 08/15/22 13:29 98.4 F 81 17 116/68 100 08/15/22 10:28 98 F 16 108/69 80 L 08/15/22 08:19 76 17 08/15/22 07:45 97.9 F 76 17 118/69 100 08/15/22 03:41 98.1 F 73 17 113/77 100 08/15/22 03:14 98.4 F 89 16 117/76 98 08/15/22 02:30 80 97/66 08/15/22 02:00 76 98/66 08/15/22 01:30 77 117/70 08/15/22 01:00 78 114/79 08/15/22 00:30 95 113/77 08/15/22 00:00 84 128/78 03/29/23 23:30 102 H 113/72 03/29/23 23:00 71 98/57 08/14/22 22:30 70 103/73 08/14/22 22:00 69 101/68 08/14/22 21:35 82 14 101/68 100 08/14/22 21:30 75 120/76 100 08/14/22 21:00 79 105/82 100 08/14/22 20:30 84 117/84 100 08/14/22 20:00 83 117/75 100 08/14/22 19:30 73 131/85 08/14/22 19:00 87 117/71 99 08/14/22 18:30 65 113/77 100 08/14/22 18:20 100 Intake and Output 08/15/22 08/15/22 08/15/22 06:59 14:59 22:59 Intake Total 354 Balance 354 Intake: Oral 354 Other: Voiding Method Toilet Toilet Urinal Urinal # Voids 1 Weight 96.162 kg - Constitutional General appearance: average body habitus, no acute distress - EENT Eyes: EOMI, scleral icterus ENT: hearing grossly normal - Respiratory Respiratory: bilateral: CTA - Cardiovascular Rhythm: regular Heart sounds: normal: S1, S2 Abnormal Heart Sounds: no systolic murmur, no diastolic murmur, no rub, no S3 Gallop, no S4 Gallop, no click, no other - Gastrointestinal General gastrointestinal: distended, normal bowel sounds, soft, no tenderness - Integumentary Integumentary: jaundiced - Neurologic grossly intact - Musculoskeletal Musculoskeletal: strength equal bilaterally - Psychiatric Psychiatric: A&O x's 3, appropriate affect, intact judgment & insight Results CBC & Chem 7: 08/15/22 10:59 08/15/22 10:59 Labs: Abnormal Lab Results - Last 24 Hours (Table) 08/14/22 08/14/22 08/14/22 Range/Units 16:38 16:38 18:26 WBC (3.8-10.6) k/uL RBC (4.30-5.90) m/uL Hgb (13.0-17.5) gm/dL Hct (39.0-53.0) % MCV (80.0-100.0) fL MCH (25.0-35.0) pg Plt Count 43 L (150-450) k/uL Neutrophils # 1.1 L (1.3-7.7) k/uL Neutrophils # (Manual) (1.3-7.7) k/uL Macrocytosis PT (9.0-12.0) sec INR (<1.2) APTT (22.0-30.0) sec Fibrinogen (200-500) mg/dL Chloride (98-107) mmol/L Carbon Dioxide (22-30) mmol/L BUN (9-20) mg/dL Creatinine (0.66-1.25) mg/dL Calcium (8.4-10.2) mg/dL Total Bilirubin 6.1 H (0.2-1.3) mg/dL Unconjugated Bilirubin 2.9 H (0.0-1.1) mg/dL Delta Bilirubin 2.9 H (0.0-0.2) mg/dL Alkaline Phosphatase (38-126) U/L Ammonia (<30) umol/L Albumin (3.5-5.0) g/dL Urine Bilirubin 1+ H (Negative) U Tricyclic Antidepress (NotDetected) 08/14/22 08/14/22 08/14/22 Range/Units 18:26 19:23 19:23 WBC (3.8-10.6) k/uL RBC (4.30-5.90) m/uL Hgb (13.0-17.5) gm/dL Hct (39.0-53.0) % MCV (80.0-100.0) fL MCH (25.0-35.0) pg Plt Count (150-450) k/uL Neutrophils # (1.3-7.7) k/uL Neutrophils # (Manual) (1.3-7.7) k/uL Macrocytosis PT 22.7 H (9.0-12.0) sec INR 2.3 H (<1.2) APTT 35.6 H (22.0-30.0) sec Fibrinogen (200-500) mg/dL Chloride (98-107) mmol/L Carbon Dioxide (22-30) mmol/L BUN (9-20) mg/dL Creatinine (0.66-1.25) mg/dL Calcium (8.4-10.2) mg/dL Total Bilirubin (0.2-1.3) mg/dL Unconjugated Bilirubin (0.0-1.1) mg/dL Delta Bilirubin (0.0-0.2) mg/dL Alkaline Phosphatase (38-126) U/L Ammonia 90 H (<30) umol/L Albumin (3.5-5.0) g/dL Urine Bilirubin (Negative) U Tricyclic Antidepress Detected H (NotDetected) 08/15/22 08/15/22 08/15/22 Range/Units 10:20 10:59 10:59 WBC 2.7 L (3.8-10.6) k/uL RBC 3.16 L (4.30-5.90) m/uL Hgb 12.2 L (13.0-17.5) gm/dL Hct 36.2 L (39.0-53.0) % MCV 114.6 H (80.0-100.0) fL MCH 38.5 H (25.0-35.0) pg Plt Count 42 L (150-450) k/uL Neutrophils # 1.1 L (1.3-7.7) k/uL Neutrophils # (Manual) 1.13 L (1.3-7.7) k/uL Macrocytosis Marked A PT (9.0-12.0) sec INR (<1.2) APTT (22.0-30.0) sec Fibrinogen 87 L (200-500) mg/dL Chloride 112 H (98-107) mmol/L Carbon Dioxide 18 L (22-30) mmol/L BUN 8 L (9-20) mg/dL Creatinine 0.60 L (0.66-1.25) mg/dL Calcium 7.5 L (8.4-10.2) mg/dL Total Bilirubin 6.5 H (0.2-1.3) mg/dL Unconjugated Bilirubin (0.0-1.1) mg/dL Delta Bilirubin (0.0-0.2) mg/dL Alkaline Phosphatase 172 H (38-126) U/L Ammonia (<30) umol/L Albumin 2.2 L (3.5-5.0) g/dL Urine Bilirubin (Negative) U Tricyclic Antidepress (NotDetected) US - abdomen: report reviewed Assessment and Plan (1) Pancytopenia Current Visit: Yes Status: Acute Priority: High Code(s): D61.818 - OTHER PANCYTOPENIA SNOMED Code(s): 485922473 (2) Alcohol withdrawal Current Visit: Yes Status: Acute Priority: High Code(s): F10.939 - ALCOHOL USE, UNSPECIFIED WITH WITHDRAWAL, UNSPECIFIED SNOMED Code(s): 708016378 (3) Liver disease Current Visit: Yes Status: Acute Priority: High Code(s): K76.9 - LIVER DISEASE, UNSPECIFIED SNOMED Code(s): 764809717 Plan: Pancytopenia: -Hgb 11.8, hct 33.8, WBC 2.5, platelets 43,000. No reported episodes of bleeding -Pancytopenia likely due to hx of ETOH abuse and liver disease -Anemia workup ordered and will follow for additional recommendations -Will continue to monitor counts -Please transfuse for hemoglobin less than 7 or if symptomatic or platelet count less than 10,000 or if symptomatic Liver disease: -Gallbladder ultrasound revealed no discrete liver mass. There is shadowing at the neck of the gallbladder consistent with multiple gallstones. No dilated ducts. Mild gallbladder wall thickening suggestive of cholecyctitis. Surgery has been consulted for US findings. Recommendation for transfer to for manager intelligence evaluation. No surgical intervention planned at this time -Bilirubin 6.1, ammonia 90, and INR 2.3. Dose of vitamin K given upon admission. -IV Vitamin K ordered x 2 additional doses -Coags daily. Fibrinogen ordered. -Agree with transfer for GI/hepatology evaluation
[2022-08-15 19:21] VITALS: BP 128/75; PULSE 90
[2022-08-15] MEDS ORDERED: BIKTARVY PO SCH ×2 (21:00)
[2022-08-15] MEDS ORDERED: QUEtiapine 100 MG TAB PO SCH (21:00)
--- NOTE | 2022-08-15 21:21 | P.CONS ---
History of Present Illness - Reason for Consult Consult date: 08/15/22 - History of Present Illness Patient is a 47-year-old male with a past medical history significant for HIV for the patient is on Biktarvy also with a history of hyperlipidemia liver disease she has refrain patient apparently recently did have work-up done for elevated liver enzymes and has been evaluated at [facility] apparently the patient did have a blood work done and noticed to have significant elevated liver enzymes for the patient was advised to go to the hospital patient also develop yellow discoloration of his sclera and the skin patient denies having any headache or URI symptoms no chest pain or shortness of breath or cough abdominal pain or any diarrhea on presentation the hospital the patient was afebrile did have a leukopenia platelet count is on the low side. Was normal bilirubin is 6.2 however ALT and AST is normal, patient has been admitted to hospital for further work-up of his elevated bilirubin infectious he was consulted for management of his underlying HIV patient is on Biktarvy and has been tolerating it so far patient did have a gallbladder ultrasound no discrete liver mass shadowing at the neck of the gallbladder consider multiple gallstones no dilated ducts mild GERD gallbladder wall thickness suggestive of cholecystitis General surgery has been consulted Past Medical History Past Medical History: Hyperlipidemia, Liver Disease, Neurologic Disorder, Skin Disorder Additional Past Medical History / Comment(s): HIV; hepatitis B (states he is cured); schizophrenia;occasionally has dizziness; History of Any Multi-Drug Resistant Organisms: MRSA Year Discovered:: 12/19/14 MDRO Source:: Neck Additional Past Surgical History / Comment(s): fistula removal X2, eye Past Anesthesia/Blood Transfusion Reactions: No Reported Reaction Past Psychological History: Anxiety, Bipolar, Panic Disorder, Schizophrenia Additional Psychological History / Comment(s): social anxiety; panic attacks in the past (states he is cured); feels like he is "guilty of PTSD, working on it in his own mind" Smoking Status: Current every day smoker Past Alcohol Use History: Abuse, Daily, Heavy Past Drug Use History: Methamphetamine Additional Drug Use History / Comment(s): told me he wants to "plead the fifth", and "declares no answer at this time" about last use of methamphetamines. - Past Family History Father Family Medical History: Myocardial Infarction ([place]) Mother Family Medical History: Cancer Medications and Allergies Home Medications Medication Instructions Recorded Confirmed Type Bictegrav/Emtricit/Tenofov Ala 1 tab PO HS 08/14/22 08/14/22 History [Biktarvy 50-200-25 mg Tablet] Lactulose [Constulose] 1 tsp PO DAILY 08/14/22 08/14/22 History Melatonin [Melatonin Dissolving] 12 mg PO HS 08/14/22 08/14/22 History Omeprazole 20 mg PO DAILY 08/14/22 08/14/22 History QUEtiapine [SEROquel] 100 mg PO HS 08/14/22 08/14/22 History Spironolactone [Aldactone] 25 mg PO DAILY 08/14/22 08/14/22 History Thiamine [Vitamin B-1] 100 mg PO DAILY 08/14/22 08/14/22 History levETIRAcetam [Keppra] 1,000 mg PO BID 08/14/22 08/14/22 History Allergies Allergy/AdvReac Type Severity Reaction Status Date / Time ciprofloxacin [From Cipro] Allergy Rash/Hives Verified 08/14/22 17:53 ciprofloxacin HCl Allergy Rash/Hives Verified 08/14/22 17:53 [From Cipro] Physical Exam Vitals: Vital Signs Temp Pulse Pulse Resp BP BP Pulse Ox 08/15/22 10:28 98 F 16 108/69 80 L 08/15/22 08:19 76 17 08/15/22 07:45 97.9 F 76 17 118/69 100 08/15/22 03:41 98.1 F 73 17 113/77 100 08/15/22 03:14 98.4 F 89 16 117/76 98 08/15/22 02:30 80 97/66 08/15/22 02:00 76 98/66 08/15/22 01:30 77 117/70 08/15/22 01:00 78 114/79 08/15/22 00:30 95 113/77 08/15/22 00:00 84 128/78 08/14/22 23:30 102 H 113/72 08/14/22 23:00 71 98/57 08/14/22 22:30 70 103/73 08/14/22 22:00 69 101/68 08/14/22 21:35 82 14 101/68 100 03/29/23 21:30 75 120/76 100 08/14/22 21:00 79 105/82 100 08/14/22 20:30 84 117/84 100 08/14/22 20:00 83 117/75 100 08/14/22 19:30 73 131/85 08/14/22 19:00 87 117/71 99 08/14/22 18:30 65 113/77 100 08/14/22 18:20 100 08/14/22 15:00 98.1 F 93 16 108/71 100 Intake and Output 08/14/22 08/15/22 08/15/22 22:59 06:59 14:59 Intake Total 118 Balance 118 Intake: Oral 118 Other: Voiding Method Toilet Toilet Urinal Urinal # Voids 1 Weight 96.162 kg 96.162 kg Results CBC & Chem 7: 08/15/22 10:59 08/15/22 10:59 Labs: Abnormal Lab Results - Last 24 Hours (Table) 08/14/22 08/14/22 08/14/22 Range/Units 16:38 16:38 16:38 WBC 2.5 L (3.8-10.6) k/uL RBC 3.02 L (4.30-5.90) m/uL Hgb 11.8 L (13.0-17.5) gm/dL Hct 33.8 L (39.0-53.0) % MCV 112.1 H (80.0-100.0) fL MCH 39.1 H (25.0-35.0) pg Plt Count 43 L (150-450) k/uL Neutrophils # 1.1 L (1.3-7.7) k/uL Macrocytosis Marked A PT (9.0-12.0) sec INR (<1.2) APTT (22.0-30.0) sec Chloride 113 H (98-107) mmol/L Carbon Dioxide 19 L (22-30) mmol/L Calcium 7.3 L (8.4-10.2) mg/dL Total Bilirubin 6.2 H 6.1 H (0.2-1.3) mg/dL Unconjugated Bilirubin 2.9 H (0.0-1.1) mg/dL Delta Bilirubin 2.9 H (0.0-0.2) mg/dL Alkaline Phosphatase 175 H (38-126) U/L Ammonia (<30) umol/L Albumin 2.2 L (3.5-5.0) g/dL Lipase 402 H (23-300) U/L Urine Bilirubin (Negative) U Tricyclic Antidepress (NotDetected) 08/14/22 08/14/22 08/14/22 Range/Units 18:26 18:26 19:23 WBC (3.8-10.6) k/uL RBC (4.30-5.90) m/uL Hgb (13.0-17.5) gm/dL Hct (39.0-53.0) % MCV (80.0-100.0) fL MCH (25.0-35.0) pg Plt Count (150-450) k/uL Neutrophils # (1.3-7.7) k/uL Macrocytosis PT (9.0-12.0) sec INR (<1.2) APTT (22.0-30.0) sec Chloride (98-107) mmol/L Carbon Dioxide (22-30) mmol/L Calcium (8.4-10.2) mg/dL Total Bilirubin (0.2-1.3) mg/dL Unconjugated Bilirubin (0.0-1.1) mg/dL Delta Bilirubin (0.0-0.2) mg/dL Alkaline Phosphatase (38-126) U/L Ammonia 90 H (<30) umol/L Albumin (3.5-5.0) g/dL Lipase (23-300) U/L Urine Bilirubin 1+ H (Negative) U Tricyclic Antidepress Detected H (NotDetected) 08/14/22 Range/Units 19:23 WBC (3.8-10.6) k/uL RBC (4.30-5.90) m/uL Hgb (13.0-17.5) gm/dL Hct (39.0-53.0) % MCV (80.0-100.0) fL MCH (25.0-35.0) pg Plt Count (150-450) k/uL Neutrophils # (1.3-7.7) k/uL Macrocytosis PT 22.7 H (9.0-12.0) sec INR 2.3 H (<1.2) APTT 35.6 H (22.0-30.0) sec Chloride (98-107) mmol/L Carbon Dioxide (22-30) mmol/L Calcium (8.4-10.2) mg/dL Total Bilirubin (0.2-1.3) mg/dL Unconjugated Bilirubin (0.0-1.1) mg/dL Delta Bilirubin (0.0-0.2) mg/dL Alkaline Phosphatase (38-126) U/L Ammonia (<30) umol/L Albumin (3.5-5.0) g/dL Lipase (23-300) U/L Urine Bilirubin (Negative) U Tricyclic Antidepress (NotDetected) Assessment and Plan Plan: 1patient to the hospital with yellow discoloration of the sclera in this patient who did have a obstructive jaundice ultrasound has been suspicious for cholecystitis with multiple gallstones however his liver enzymes are normal General surgery has been consulted, patient empirically started on antibiotic, Zosyn 2-patient with HIV which is well controlled with Biktarvy which will be continued discussed with the pharmacist 3-we will also check blood cultures and inflammatory markers We will follow on clinical condition and cultures to further adjust medication if needed Thank you for this consultation we will follow the patient along with you Time with Patient: Greater than 30
[2022-08-15 22:00] VITALS: TEMP 98.3
[2022-08-15] MEDS ORDERED: PIPERACILLIN-TAZOBACTAM 3.375 GM in SODIUM CHLORIDE 0.9% 100 ML IVPB SCH (22:00)
[2022-08-16 00:45] LABS: % Iron Saturation 74.65 (15.00-50.00)
[2022-08-16 03:43] LABS: Hepatitis B Surface Antigen Nonreactive (Nonreactive); Hepatitis C IgG Antibody Nonreactive (Nonreactive)
[2022-08-16] MEDS ORDERED: PHYTONADIONE 5 MG in SODIUM CHLORIDE 0.9% 50 ML IVPB SCH (09:00)
[2022-08-16 09:27] LABS: Hepatitis B Surface AB- Quant 17.3 mIU/mL; Hepatitis B Surface Antibody Reactive (Nonreactive)
== END 2022-08-15 22:30 | disposition short-term general hospital (02) | DRG 442 ==
LOC: EC 14:57 → 4SSUR 18:44
PROVIDERS: ADMIT Family Medicine; ATTEND Family Medicine
DX: K76.82 Hepatic encephalopathy (principal); B20 Human immunodeficiency virus [HIV] disease; F10.239 Alcohol dependence with withdrawal, unspecified; D68.69 Other thrombophilia; I85.00 Esophageal varices without bleeding; K80.10 Calculus of gallbladder with chronic cholecystitis without obstruction; K72.10 Chronic hepatic failure without coma; R04.0 Epistaxis; F15.11 Other stimulant abuse, in remission; F31.9 Bipolar disorder, unspecified; D64.9 Anemia, unspecified; F20.9 Schizophrenia, unspecified; D72.819 Decreased white blood cell count, unspecified; E07.9 Disorder of thyroid, unspecified; H54.3 Unqualified visual loss, both eyes; F41.9 Anxiety disorder, unspecified; F41.0 Panic disorder [episodic paroxysmal anxiety]; F43.10 Post-traumatic stress disorder, unspecified; F11.11 Opioid abuse, in remission; F17.200 Nicotine dependence, unspecified, uncomplicated; E78.5 Hyperlipidemia, unspecified; Z20.822 Contact with and (suspected) exposure to COVID-19; Z79.899 Other long term (current) drug therapy; Z88.1 Allergy status to other antibiotic agents; Z86.19 Personal history of other infectious and parasitic diseases; Z86.14 Personal history of Methicillin resistant Staphylococcus aureus infection; Z91.51 Personal history of suicidal behavior
CPT/HCPCS: 36415; 76705; 80053; 80177; 80306; 80320; 81003; 82140; 82150; 82248; 82525; 82607; 82728; 82746; 83540; 83550; 83690; 83735; 83921; 84100; 84597; 85025; 85384; 85610; 85730; 86704; 86706; 86707; 86803; 87040; 87340; 87350; 87517; 87635; 96360; 99285

== ENCOUNTER 2022-09-03 10:22 | Inpatient (IN) | payer MEDICARE, OTHER ==
[2022-09-03] MEDS ORDERED: SODIUM CHLORIDE 0.9% 1,000 ML IV ONE ×3 (10:36→12:46)
[2022-09-03 11:08] LABS: ALT 26 U/L (4-49); African American GFR (CKD) 7 (>60 ml/min/1.73 sqM); Albumin 2.1 g/dL (3.5-5.0); Alcohol <10 mg/dL; Anion Gap 15 mmol/L; Bilirubin, Conjugated 8.3 mg/dL (0.0-0.3); Bilirubin, Delta 4.8 mg/dL (0.0-0.2); Blood Urea Nitrogen 84 mg/dL (9-20); Calcium 7.3 mg/dL (8.4-10.2); Carbon Dioxide 11 mmol/L (22-30); Chloride 107 mmol/L (98-107); Glucose 77 mg/dL (74-99); Lipase 1209 U/L (23-300); Non-African American GFR(CKD) 6 (>60 ml/min/1.73 sqM); Sodium 133 mmol/L (137-145); Total Protein 6.3 g/dL (6.3-8.2)
[2022-09-03 11:15] LABS: Total Bilirubin 15.1 mg/dL (0.2-1.3)
[2022-09-03 11:20] LABS: AST 44 U/L (17-59); Basophils % (A) 0 %; Eosinophils # (A) 0.1 k/uL (0-0.7); Eosinophils % (A) 1 %; HCT 31.3 % (39.0-53.0); HGB 10.9 gm/dL (13.0-17.5); Lymphocytes # (A) 0.9 k/uL (1.0-4.8); Lymphocytes % (A) 12 %; MCH 38.2 pg (25.0-35.0); Macrocytosis Marked; Monocytes # (A) 1.6 k/uL (0-1.0); Monocytes % (A) 22 %; Neutrophils # (A) 4.8 k/uL (1.3-7.7); Neutrophils % (A) 63 %; Platelet Count 53 k/uL (150-450); Potassium 4.5 mmol/L (3.5-5.1); RBC 2.87 m/uL (4.30-5.90); RDW 14.8 % (11.5-15.5); WBC 7.6 k/uL (3.8-10.6)
[2022-09-03 11:21] LABS: Alkaline Phosphatase 113 U/L (38-126)
[2022-09-03 11:23] LABS: MCV 109.1 fL (80.0-100.0)
--- NOTE | 2022-09-03 11:43 | CT ---
EXAMINATION TYPE: CT brain wo con DATE OF EXAM: 09/03/2022 COMPARISON: 07/26/2020 INDICATION: AMS. liver failure DLP: 1331.4 mGycm, Automated exposure control for dose reduction was used. CONTRAST: None CT of the brain is performed utilizing 3 mm thick sections through the posterior fossa and 3 mm thick sections through the remaining calvarium. Study is performed within 24 hours of arrival to the hosp [facility]. No abnormal hyperdensity is present to suggest an acute intracranial hemorrhage. No mass lesion is evident. No acute infarcts are evident. Ventricles and sulci are appropriate for the patient age. Paranasal sinuses and mastoid air cells within the [id number] are clear. There are changes of the right orbit. Lens implant may be present. This could be an artificial globe. Correlate with the patient's history. Scleral banding is present on the left. IMPRESSIONS: 1. No acute intracranial process. Follow-up MRI can be performed as clinically indicated.
[2022-09-03 11:55] LABS: INR 2.7 (<1.2); Partial Thromboplastin Time 43.6 sec (22.0-30.0); Prothrombin Time 26.4 sec (9.0-12.0)
[2022-09-03] MEDS ORDERED: LACTULOSE 200 GM/300 ML (FROM 1/2 GAL JUG) RECTAL ONE ×2 (12:00→18:00)
[2022-09-03 12:17] LABS: Cocaine Screen,Urine Not Detected (NotDetected); Opiate Screen,Urine Detected (NotDetected); Phencyclidine Screen,Urine Not Detected (NotDetected); Urn Cannabinoid Scrn Not Detected (NotDetected)
[2022-09-03 12:18] LABS: Amphetamine Screen,Urine Not Detected (NotDetected); Barbiturate Screen,Urine Not Detected (NotDetected); Benzodiazepines Screen,Urine Not Detected (NotDetected); Methadone Screen, Urine Not Detected (NotDetected); Oxycodone Screen, Urine Not Detected (NotDetected); Tricyclic Antidepressant,Urine Detected (NotDetected)
--- NOTE | 2022-09-03 12:18 | ED ---
Altered Mental Status HPI <Hakan Valentino - Last Filed: 09/03/22 23:13> - General Source: EMS Mode of arrival: EMS Limitations: no limitations <Lorena Burch - Last Filed: 09/05/22 14:24> - General Chief Complaint: Altered Mental Status Stated Complaint: Altered Mental Status Time Seen by Provider: 09/03/22 10:30 - History of Present Illness Initial Comments: 47-year-old male with past history of alcohol abuse, methamphetamine abuse, hepatitis B, HIV who presents to the emergency department with altered mental status. Mother is at bedside and present history. Patient lives with her. He was recently discharged from [facility] on the third for acute liver failure. He was discharged on lactulose and rifaximin. She states that he has been taking all of his medications and it has caused him to have significant diarrhea. The only dose he didn't receive was this morning. The mother was attempting to get the patient up to ambulate when he was too weak. This is when she called EMS. She states that he has been sober since he has gotten home. No reported falls with head trauma. She does report that his color has worsened. No other alleviating, precipitating or modifying factors (Lorena Burch) - Related Data Home Medications Medication Instructions Recorded Confirmed Bictegrav/Emtricit/Tenofov Ala 1 tab PO QAM 08/14/22 09/03/22 [Biktarvy 50-200-25 mg Tablet] Lactulose [Constulose] 20 gm PO TID 08/14/22 09/03/22 Melatonin [Melatonin Dissolving] 12 mg PO HS 08/14/22 09/03/22 Omeprazole 20 mg PO QAM 08/14/22 09/03/22 QUEtiapine [SEROquel] 100 mg PO HS 08/14/22 09/03/22 Spironolactone [Aldactone] 25 mg PO QAM 08/14/22 09/03/22 levETIRAcetam [Keppra] 1,000 mg PO QAM 08/14/22 09/03/22 Folic Acid 1 mg PO QAM 09/03/22 09/03/22 Rifaximin [Xifaxan] 550 mg PO BID 09/03/22 09/03/22 Tab-A-Brunilda 1 tab PO QAM 09/03/22 09/03/22 carvediloL [Coreg] 3.125 mg PO BID 09/03/22 09/03/22 Allergies Allergy/AdvReac Type Severity Reaction Status Date / Time ciprofloxacin [From Cipro] Allergy Rash/Hives Verified 09/03/22 11:37 ciprofloxacin HCl Allergy Rash/Hives Verified 09/03/22 11:37 [From Cipro] Review of Systems ROS Other: All systems not noted in ROS Statement are negative. <Hakan Valentino - Last Filed: 09/03/22 23:13> ROS Other: All systems not noted in ROS Statement are negative. <Lorena Burch - Last Filed: 09/05/22 14:24> ROS Statement: Those systems with pertinent positive or pertinent negative responses have been documented in the HPI. Past Medical History Past Medical History: Hyperlipidemia, Liver Disease, Neurologic Disorder, Skin Disorder Additional Past Medical History / Comment(s): HIV; hepatitis B (states he is cured); schizophrenia;occasionally has dizziness; History of Any Multi-Drug Resistant Organisms: MRSA Date of last positivie culture/infection: 12/19/14 MDRO Source:: Neck Additional Past Surgical History / Comment(s): fistula removal X2, eye Past Anesthesia/Blood Transfusion Reactions: No Reported Reaction Past Psychological History: Anxiety, Bipolar, Panic Disorder, Schizophrenia Smoking Status: Current every day smoker Past Alcohol Use History: Abuse, Daily, Heavy Past Drug Use History: Methamphetamine - Past Family History Father Family Medical History: Myocardial Infarction (ME) Mother Family Medical History: Cancer <Lorena Burch - Last Filed: 09/05/22 14:24> General Exam Limitations: altered mental status General appearance: obtunded, other (Jaundiced) Head exam: Present: atraumatic, normocephalic, normal inspection Eye exam: Present: scleral icterus, other (Cataracts of right eye). Absent: conjunctival injection, periorbital swelling ENT exam: Present: mucous membranes dry, other (Dried blood in oropharynx) Neck exam: Present: normal inspection. Absent: tenderness, meningismus, lymphadenopathy Respiratory exam: Present: normal lung sounds bilaterally. Absent: respiratory distress, wheezes, rales, rhonchi, stridor Cardiovascular Exam: Present: regular rate, normal rhythm, normal heart sounds. Absent: systolic murmur, diastolic murmur, rubs, gallop, clicks GI/Abdominal exam: Present: distended Rectal exam: Present: normal inspection Extremities exam: Present: pedal edema (With the right being worse than the left) Back exam: Present: normal inspection Neurological exam: Present: altered, other (Does not follow commands) Psychiatric exam: Present: agitated Skin exam: Present: other (Jaundiced) <Lorena Burch A - Last Filed: 09/05/22 14:24> Course <MarcinLorena A - Last Filed: 09/05/22 14:24> Vital Signs 09/03/22 09/03/22 09/03/22 10:23 12:23 13:00 Temperature 98.0 F Pulse Rate 77 74 69 Respiratory 14 22 18 Rate Blood Pressure 81/53 93/56 94/60 Blood Pressure [Right Arm] O2 Sat by Pulse 100 95 96 Oximetry 09/03/22 09/03/22 09/03/22 15:00 16:00 18:30 Temperature Pulse Rate 72 71 79 Respiratory 18 22 18 Rate Blood Pressure 97/52 113/69 101/76 Blood Pressure [Right Arm] O2 Sat by Pulse 100 99 96 Oximetry 09/03/22 09/03/22 09/03/22 19:37 21:11 21:39 Temperature Pulse Rate 81 80 Respiratory 17 18 Rate Blood Pressure 114/72 109/76 92/70 Blood Pressure [Right Arm] O2 Sat by Pulse 100 98 Oximetry 09/03/22 09/03/22 09/04/22 21:51 22:39 01:00 Temperature 92.5 F L 93.2 F L 94.5 F L Pulse Rate 87 80 Respiratory 18 18 Rate Blood Pressure 80/58 113/70 Blood Pressure [Right Arm] O2 Sat by Pulse 97 Oximetry 09/04/22 09/04/22 09/04/22 01:41 01:42 03:21 Temperature 94.5 F L 94.5 F L Pulse Rate 80 90 Respiratory 20 18 14 Rate Blood Pressure 106/66 99/51 Blood Pressure 120/62 [Right Arm] O2 Sat by Pulse 95 Oximetry 09/04/22 09/04/22 09/04/22 06:50 07:09 07:20 Temperature 97.9 F Pulse Rate 90 97 97 Respiratory 15 16 18 Rate Blood Pressure 92/39 84/43 86/45 Blood Pressure [Right Arm] O2 Sat by Pulse 96 95 95 Oximetry 09/04/22 09/04/22 09/04/22 08:10 09:05 10:00 Temperature 98.2 F Pulse Rate 93 90 87 Respiratory 18 22 18 Rate Blood Pressure 114/68 115/90 Blood Pressure [Right Arm] O2 Sat by Pulse 95 94 L 95 Oximetry 09/04/22 09/04/22 09/04/22 11:34 12:47 13:15 Temperature 98.1 F Pulse Rate 91 87 86 Respiratory 18 18 18 Rate Blood Pressure 102/43 93/42 107/55 Blood Pressure [Right Arm] O2 Sat by Pulse 96 95 95 Oximetry 09/04/22 09/04/22 09/04/22 13:32 14:16 15:50 Temperature 97.7 F 96.1 F L Pulse Rate 89 86 Respiratory 18 20 20 Rate Blood Pressure 105/54 110/57 Blood Pressure 93/59 [Right Arm] O2 Sat by Pulse 95 94 L Oximetry 09/04/22 09/04/22 09/04/22 15:54 16:47 17:43 Temperature 97.7 F Pulse Rate 85 81 86 Respiratory 18 18 20 Rate Blood Pressure 113/56 108/57 98/50 Blood Pressure [Right Arm] O2 Sat by Pulse 95 96 98 Oximetry 09/04/22 09/04/22 09/04/22 19:00 20:00 23:15 Temperature Pulse Rate 87 93 87 Respiratory 18 20 18 Rate Blood Pressure 106/62 112/53 118/62 Blood Pressure [Right Arm] O2 Sat by Pulse 95 96 94 L Oximetry 09/05/22 09/05/22 09/05/22 00:05 00:57 01:27 Temperature Pulse Rate 84 87 Respiratory 18 18 134 H Rate Blood Pressure 98/65 114/57 Blood Pressure [Right Arm] O2 Sat by Pulse 95 96 95 Oximetry 09/05/22 01:30 Temperature 97.6 F Pulse Rate 79 Respiratory 15 Rate Blood Pressure 131/71 Blood Pressure [Right Arm] O2 Sat by Pulse 95 Oximetry - Reevaluation(s) Reevaluation #1: Speaking with Dr. Carroll at [facility]- will accept patient - awaiting bed 09/03/22 16:06 (Lorena Burch) Reevaluation #2: 09/03/22 16:[address] Llanes - no dialysis at this time. place on bicarb gtt. recommends abd ultrasound and midodrine tid (Lorena Burch) Reevaluation #3: Paging Dr. Collins 09/03/22 16:22 (Lorena Burch) Reevaluation #4: Mario Alberto - would like vascular consulted for dialysis catheter 09/03/22 16:[address] Stein - requesting I call Dr. Johnson 09/03/22 16:[address] Johnson - will be right over to put in catheter 09/03/22 14:[address] Collins who will consult on the patient until his transfer to [facility]. Awaiting callback for bed at this time 09/03/22 14:30 (Lorena Burch) Procedures - [place] Protocol (Time Out) Nurse: Gamal Donovan <Lorena Burch - Last Filed: 09/05/22 14:24> Medical Decision Making - Lab Data Result diagrams: 09/03/22 10:40 09/03/22 10:40 <Hakan Valentino - Last Filed: 09/03/22 23:13> - Lab Data Result diagrams: 09/05/22 04:33 09/05/22 04:33 <Lorena Burch - Last Filed: 09/05/22 14:24> - Medical Decision Making just prior to the end of my shift I was asked about possibility of transfer to [facility]. I did discuss with the physician there after being connected by the transfer line. I was informed that they do not have ICU beds available at the [facility] at this time. Given that there is a delay in transfer pending the bed at [facility], I did discuss case with tie hacker and also with admitting physician and (Hakan Valentino) Was pt. sent in by a medical professional or institution (, PA, WIND TURBINE INSTALLER, urgent care, hospital, or skilled nursing...) When possible be specific @ -No Did you speak to anyone other than the patient for history (EMS, parent, family, police, friend...)? What history was obtained from this source @ -Patient's mother Did you review nursing and triage notes (agree or disagree)? Why? @ -I reviewed and agree with nursing and triage notes Were old charts reviewed (outside hosp., previous admission, EMS record, old EKG, old radiological studies, urgent care reports/EKG's, skilled nursing records)? Report findings @ -[I reviewed the patient's admission from earlier last month where he was sent on the [facility] Differential Diagnosis (chest pain, altered mental status, abdominal pain women, abdominal pain men, vaginal bleeding, weakness, fever, dyspnea, syncope, headache, dizziness, GI bleed, back pain, seizure, CVA, palpatations, mental health, musculoskeletal)? @ -Differential Altered Mental Status: Hypoglycemia, DKA, hypercapnia, ETOH, overdose, CO poisoning, trauma, myxedema coma, HTN encephalopathy, infection, encephalitis, psychosis, intercranial hemorrhage, hepatic encephalopathy, meningitis, CVA, this is not meant to be an all-inclusive list EKG interpreted by me (3pts min.). @ -yes X-rays interpreted by me (1pt min.). @ -yes CT interpreted by me (1pt min.). @ -yes U/S interpreted by me (1pt. min.). @ -None done What testing was considered but not performed or refused? (CT, X-rays, U/S, labs)? Why? @ -None What meds were considered but not given or refused? Why? @ -None Did you discuss the management of the patient with other professionals (professionals i.e. , PA, WIND TURBINE INSTALLER, lab, RT, psych nurse, dialysis social worker, self rising flour mixer, teacher, earth science technical officer, window caser)? Give summary @ -Attempted to discuss the case with the transfer center at [facility] Was smoking cessation discussed for >3mins.? @ -No Was critical care preformed (if so, how long)? @ -Yes, 68 minutes Were there social determinants of health that impacted care today? How? (Homelessness, low income, unemployed, alcoholism, drug addiction, transportation, low edu. Level, literacy, decrease access to med. care, long term, rehab)? @ -Drug addiction and alcoholism Was there de-escalation of care discussed even if they declined (Discuss DNR or withdrawal of care, Hospice)? DNR status @ -Yes and the mother states that the patient will be DNR/DNI but are okay with pressors What co-morbidities impacted this encounter? (DM, HTN, Smoking, COPD, CAD, Cancer, CVA, ARF, Chemo, Hep., AIDS, mental health diagnosis, sleep apnea, morbid obesity)? @ -Liver failure secondary to alcohol use Was patient admitted / discharged? Hospital course, mention meds given and route, prescriptions, significant lab abnormalities, going to OR and other pertinent info. @ -Upon arrival patient is placed in a trauma 3. Thorough history and physical exam was performed. IV is established laboratory studies are conducted. Patient found to be in renal failure with a creatinine of 8.8. Pritchett is placed at this time. He has minimal urine output. Ammonia is 400. Lactulose and flexiseal ordered. He does have low blood pressures and was given 3 L of normal saline. Blood pressures continue to be low and therefore central line is placed in the right groin. Bilirubin is 15. Patient's family is requesting transfer to [facility]. They would like the patient to be a DNR/DNI however are agreeable to pressors. I did call [facility] 2 in an attempt to discuss the case with their transfer physician. Physician is busy at this time and they state that the doctor will call back when available. [facility] does call back. They do accept the patient however he is on a wait list. At this time medicine, vascular, nephrology and gI will placed on consult here Undiagnosed new problem with uncertain prognosis? @ -yes Drug Therapy requiring intensive monitoring for toxicity (Heparin, Nitro, Insulin, Cardizem)? @ -yes, levophed Were any procedures done? @ -right central femoral line Diagnosis/symptom? @ -Acute encephalopathy, hyperammonemia, elevated bilirubin, hypotension, LES Acute, or Chronic, or Acute on Chronic? @ -acute Uncomplicated (without systemic symptoms) or Complicated (systemic symptoms)? @ -complicated Side effects of treatment? @ -volume overload Exacerbation, Progression, or Severe Exacerbation? @ -No Poses a threat to life or bodily function? How? (Chest pain, USA, ME, pneumonia, PE, COPD, DKA, ARF, appy, cholecystitis, CVA, Diverticulitis, Homicidal, Suicidal, threat to staff... and all critical care pts) @ -yes (Lorena Burch) - Lab Data Lab Results 04/18/23 04/18/23 04/18/23 Range/Units 10:40 10:40 10:40 WBC 7.6 (3.8-10.6) k/uL RBC 2.87 L (4.30-5.90) m/uL Hgb 10.9 L (13.0-17.5) gm/dL Hct 31.3 L (39.0-53.0) % MCV 109.1 H D (80.0-100.0) fL MCH 38.2 H (25.0-35.0) pg MCHC 35.0 (31.0-37.0) g/dL RDW 14.8 (11.5-15.5) % Plt Count 53 L (150-450) k/uL MPV 11.0 Neutrophils % 63 % Lymphocytes % 12 % Monocytes % 22 % Eosinophils % 1 % Basophils % 0 % Neutrophils # 4.8 (1.3-7.7) k/uL Lymphocytes # 0.9 L (1.0-4.8) k/uL Monocytes # 1.6 H (0-1.0) k/uL Eosinophils # 0.1 (0-0.7) k/uL Basophils # 0.0 (0-0.2) k/uL Manual Slide Review Performed Poikilocytosis (manual Present Macrocytosis Marked A PT 26.4 H (9.0-12.0) sec INR 2.7 H (<1.2) APTT 43.6 H (22.0-30.0) sec Sodium 133 L (137-145) mmol/L Potassium 4.5 (3.5-5.1) mmol/L Chloride 107 (98-107) mmol/L Carbon Dioxide 11 L (22-30) mmol/L Anion Gap 15 mmol/L BUN 84 H (9-20) mg/dL Creatinine 8.88 H* (0.66-1.25) mg/dL Est GFR (CKD-EPI)AfAm 7 (>60 ml/min/1.73 sqM) Est GFR (CKD-EPI)NonAf 6 (>60 ml/min/1.73 sqM) Glucose 77 (74-99) mg/dL Calcium 7.3 L (8.4-10.2) mg/dL Total Bilirubin 15.1 H* (0.2-1.3) mg/dL Conjugated Bilirubin 8.3 H (0.0-0.3) mg/dL Unconjugated Bilirubin 2.0 H (0.0-1.1) mg/dL Delta Bilirubin 4.8 H (0.0-0.2) mg/dL AST 44 (17-59) U/L ALT 26 (4-49) U/L Alkaline Phosphatase 113 (38-126) U/L Ammonia (<30) umol/L Troponin I (0.000-0.034) ng/mL Total Protein 6.3 (6.3-8.2) g/dL Albumin 2.1 L (3.5-5.0) g/dL Lipase 1209 H (23-300) U/L Urine Color Urine Appearance (Clear) Urine pH (5.0-8.0) Ur Specific [place] (1.001-1.035) Urine Protein (Negative) Urine Glucose (UA) (Negative) Urine Ketones (Negative) Urine Blood (Negative) Urine Nitrite (Negative) Urine Bilirubin (Negative) Urine Urobilinogen (<2.0) mg/dL Ur Leukocyte Esterase (Negative) Urine RBC (0-5) /hpf Urine WBC (0-5) /hpf Urine WBC Clumps (None) /hpf Ur Squamous Epith Cells (0-4) /hpf Urine Bacteria (None) /hpf Urine Mucus (None) /hpf Urine Opiates Screen (NotDetected) Ur Oxycodone Screen (NotDetected) Urine Methadone Screen (NotDetected) Ur Propoxyphene Screen (NotDetected) Ur Barbiturates Screen (NotDetected) U Tricyclic Antidepress (NotDetected) Ur Phencyclidine Scrn (NotDetected) Ur Amphetamines Screen (NotDetected) U Methamphetamines Scrn (NotDetected) U Benzodiazepines Scrn (NotDetected) Urine Cocaine Screen (NotDetected) U Marijuana (THC) Screen (NotDetected) Serum Alcohol <10 mg/dL Coronavirus (PCR) (Not Detectd) 09/03/22 09/03/22 09/03/22 Range/Units 10:40 10:40 11:50 WBC (3.8-10.6) k/uL RBC (4.30-5.90) m/uL Hgb (13.0-17.5) gm/dL Hct (39.0-53.0) % MCV (80.0-100.0) fL MCH (25.0-35.0) pg MCHC (31.0-37.0) g/dL RDW (11.5-15.5) % Plt Count (150-450) k/uL MPV Neutrophils % % Lymphocytes % % Monocytes % % Eosinophils % % Basophils % % Neutrophils # (1.3-7.7) k/uL Lymphocytes # (1.0-4.8) k/uL Monocytes # (0-1.0) k/uL Eosinophils # (0-0.7) k/uL Basophils # (0-0.2) k/uL Manual Slide Review Poikilocytosis (manual Macrocytosis PT (9.0-12.0) sec INR (<1.2) APTT (22.0-30.0) sec Sodium (137-145) mmol/L Potassium (3.5-5.1) mmol/L Chloride (98-107) mmol/L Carbon Dioxide (22-30) mmol/L Anion Gap mmol/L BUN (9-20) mg/dL Creatinine (0.66-1.25) mg/dL Est GFR (CKD-EPI)AfAm (>60 ml/min/1.73 sqM) Est GFR (CKD-EPI)NonAf (>60 ml/min/1.73 sqM) Glucose (74-99) mg/dL Calcium (8.4-10.2) mg/dL Total Bilirubin (0.2-1.3) mg/dL Conjugated Bilirubin (0.0-0.3) mg/dL Unconjugated Bilirubin (0.0-1.1) mg/dL Delta Bilirubin (0.0-0.2) mg/dL AST (17-59) U/L ALT (4-49) U/L Alkaline Phosphatase (38-126) U/L Ammonia 400 H (<30) umol/L Troponin I 0.020 (0.000-0.034) ng/mL Total Protein (6.3-8.2) g/dL Albumin (3.5-5.0) g/dL Lipase (23-300) U/L Urine Color Dark Brown Urine Appearance Turbid (Clear) Urine pH 5.0 (5.0-8.0) Ur Specific [place] 1.028 (1.001-1.035) Urine Protein 1+ H (Negative) Urine Glucose (UA) Trace H (Negative) Urine Ketones Negative (Negative) Urine Blood Small H (Negative) Urine Nitrite Negative (Negative) Urine Bilirubin 2+ H (Negative) Urine Urobilinogen 2.0 (<2.0) mg/dL Ur Leukocyte Esterase Trace H (Negative) Urine RBC 12 H (0-5) /hpf Urine WBC 33 H (0-5) /hpf Urine WBC Clumps Many H (None) /hpf Ur Squamous Epith Cells 10 H (0-4) /hpf Urine Bacteria Rare H (None) /hpf Urine Mucus Few H (None) /hpf Urine Opiates Screen Detected H (NotDetected) Ur Oxycodone Screen Not Detected (NotDetected) Urine Methadone Screen Not Detected (NotDetected) Ur Propoxyphene Screen Not Detected (NotDetected) Ur Barbiturates Screen Not Detected (NotDetected) U Tricyclic Antidepress Detected H (NotDetected) Ur Phencyclidine Scrn Not Detected (NotDetected) Ur Amphetamines Screen Not Detected (NotDetected) U Methamphetamines Scrn Not Detected (NotDetected) U Benzodiazepines Scrn Not Detected (NotDetected) Urine Cocaine Screen Not Detected (NotDetected) U Marijuana (THC) Screen Not Detected (NotDetected) Serum Alcohol mg/dL Coronavirus (PCR) (Not Detectd) 09/03/22 Range/Units 19:05 WBC (3.8-10.6) k/uL RBC (4.30-5.90) m/uL Hgb (13.0-17.5) gm/dL Hct (39.0-53.0) % MCV (80.0-100.0) fL MCH (25.0-35.0) pg MCHC (31.0-37.0) g/dL RDW (11.5-15.5) % Plt Count (150-450) k/uL MPV Neutrophils % % Lymphocytes % % Monocytes % % Eosinophils % % Basophils % % Neutrophils # (1.3-7.7) k/uL Lymphocytes # (1.0-4.8) k/uL Monocytes # (0-1.0) k/uL Eosinophils # (0-0.7) k/uL Basophils # (0-0.2) k/uL Manual Slide Review Poikilocytosis (manual Macrocytosis PT (9.0-12.0) sec INR (<1.2) APTT (22.0-30.0) sec Sodium (137-145) mmol/L Potassium (3.5-5.1) mmol/L Chloride (98-107) mmol/L Carbon Dioxide (22-30) mmol/L Anion Gap mmol/L BUN (9-20) mg/dL Creatinine (0.66-1.25) mg/dL Est GFR (CKD-EPI)AfAm (>60 ml/min/1.73 sqM) Est GFR (CKD-EPI)NonAf (>60 ml/min/1.73 sqM) Glucose (74-99) mg/dL Calcium (8.4-10.2) mg/dL Total Bilirubin (0.2-1.3) mg/dL Conjugated Bilirubin (0.0-0.3) mg/dL Unconjugated Bilirubin (0.0-1.1) mg/dL Delta Bilirubin (0.0-0.2) mg/dL AST (17-59) U/L ALT (4-49) U/L Alkaline Phosphatase (38-126) U/L Ammonia (<30) umol/L Troponin I (0.000-0.034) ng/mL Total Protein (6.3-8.2) g/dL Albumin (3.5-5.0) g/dL Lipase (23-300) U/L Urine Color Urine Appearance (Clear) Urine pH (5.0-8.0) Ur Specific [place] (1.001-1.035) Urine Protein (Negative) Urine Glucose (UA) (Negative) Urine Ketones (Negative) Urine Blood (Negative) Urine Nitrite (Negative) Urine Bilirubin (Negative) Urine Urobilinogen (<2.0) mg/dL Ur Leukocyte Esterase (Negative) Urine RBC (0-5) /hpf Urine WBC (0-5) /hpf Urine WBC Clumps (None) /hpf Ur Squamous Epith Cells (0-4) /hpf Urine Bacteria (None) /hpf Urine Mucus (None) /hpf Urine Opiates Screen (NotDetected) Ur Oxycodone Screen (NotDetected) Urine Methadone Screen (NotDetected) Ur Propoxyphene Screen (NotDetected) Ur Barbiturates Screen (NotDetected) U Tricyclic Antidepress (NotDetected) Ur Phencyclidine Scrn (NotDetected) Ur Amphetamines Screen (NotDetected) U Methamphetamines Scrn (NotDetected) U Benzodiazepines Scrn (NotDetected) Urine Cocaine Screen (NotDetected) U Marijuana (THC) Screen (NotDetected) Serum Alcohol mg/dL Coronavirus (PCR) Not Detected (Not Detectd) - EKG Data EKG Comments: EKG demonstrates sinus rhythm with rate of 75. ME interval 144. QRS 135. QTC of 507. No acute ST segment elevations or depressions (Lorena Burch) Critical Care Time Critical Care Time: Yes <Lorena Burch - Last Filed: 09/05/22 14:24> Critical Care Time: 68 minutes (Lorena Burch) Disposition <Hakan Valentino - Last Filed: 09/03/22 23:13> Is patient prescribed a controlled substance at d/c from ED?: No Time of Disposition: 15:49 <Lorena Burch - Last Filed: 09/05/22 14:24> Clinical Impression: LES (acute kidney injury), Hypotension, Liver failure, Jaundice Disposition: ADMITTED IP TO THIS HOSP Condition: Critical
[2022-09-03 12:51] LABS: Appearance,Urine Turbid (Clear); Bacteria,Urine Rare /hpf; Bilirubin,Urine 2+ (Negative); Blood,Urine Small (Negative); Color,Urine Dark Brown; Glucose,Urine (UA) Trace (Negative); Ketones,Urine Negative (Negative); Leukocyte Esterase,Urine Trace (Negative); Mucus,Urine Few /hpf; Nitrite,Urine Negative (Negative); Protein,Urine 1+ (Negative); RBC,Urine 12 /hpf (0-5); Specific Gravity,Urine 1.028 (1.001-1.035); Squamous Epithelial Cell,Urine 10 /hpf (0-4); WBC,Urine 33 /hpf (0-5)
[2022-09-03] MEDS ORDERED: SODIUM CHLORIDE 0.9% 1,000 ML IV SCH (13:00)
[2022-09-03] MEDS ORDERED: cefTRIAXone IN SWFI 1,000 MG/10 ML SYRINGE IVP STA (13:03)
--- NOTE | 2022-09-03 13:23 | CT ---
EXAMINATION TYPE: CT abdomen pelvis wo con DATE OF EXAM: 09/03/2022 COMPARISON: 07/11/2022 INDICATION: liver and renal failure. pt AMS DLP: 886.9 mGycm, Automated exposure control for dose reduction was used. CONTRAST: 0 mL of Isovue 300. Study performed without Oral Contrast TECHNIQUE: Axial images were obtained from above the diaphragm to the pubic rami in the axial plane a t 5 mm thick sections. Reconstructed images are reviewed on the computer in the coronal plane. Rin g artifact is present causing limitation in the pelvis are FINDINGS: Limited CT sections are obtained the lung bases. The lung bases are clear. CT ABDOMEN: Ascites is present largely adjacent to the liver. Free fluid is within the abdomen. Right inguinal hernia contains fluid extending into the scrotal sac. Liver: Normal Spleen: Measures 17.3 cm. Pancreas: Normal Adrenal glands: The adrenal glands are normal. Gallbladder: Normal Kidneys: No masses are evident. No hydronephrosis is present. No cysts are present. Delayed images were obtained through the kidneys, which remain unremarkable. Aorta: Vascular calcification is within the aorta. Inferior vena cava: Normal. CT PELVIS: Loops of bowel within the abdomen and pelvis are normal. Study is lateral contrast limiting bowel evaluation. Appendix: Not identified. Urinary bladder: Decompressed, cannot be evaluated. Genitourinary structures: Prostate is not identified. Osseous structures: No suspicious lytic or sclerotic lesions. Appears to be avascular necrosis of damir ateral femoral heads. Clinical correlation recommended. Early left femoral head fracture could be con sidered. Early right femoral head fracture may be present to a lesser degree. IMPRESSIONS: 1. Ascites. 2. Fluid appears to extend into a right inguinal hernia and into the right hemiscrotum 3. Splenomegaly. 4. Bilateral femoral head changes suggestive for avascular necrosis. Some compression fractures may b e present. Findings are similar to comparison study.
[2022-09-03 13:35] LABS: Poikilocytosis (M) Present
--- NOTE | 2022-09-03 13:48 | XR ---
EXAMINATION TYPE: XR chest 2V DATE OF EXAM: 09/03/2022 COMPARISON: NONE HISTORY: Altered mental status and weakness. TECHNIQUE: Frontal and lateral views of the chest are obtained. FINDINGS: Low lung volumes are present. There is no focal air space opacity, pleural effusion, or pn eumothorax seen. The cardiac silhouette size is upper limits of normal. The osseous structures are intact. IMPRESSION: No acute process.
[2022-09-03] MEDS ORDERED: NOREPINEPHRINE 32 MG in SODIUM CHLORIDE 0.9% 218 ML IV ONE (14:24)
[2022-09-03] MEDS ORDERED: fentaNYL (PF) 50 MCG/ML 2 ML AMP IVP PRN (15:14)
--- NOTE | 2022-09-03 16:55 | US ---
EXAMINATION TYPE: US abdomen limited DATE OF EXAM: 09/03/2022 COMPARISON: CT 09/03/22 CLINICAL INDICATION: Male, 47 years old with history of bladder pressure, ascites fluid; Ascites flui d check. Bladder pressure. Scanned throughout the abdomen and near bladder per doctor's request. Fluid seen in RUQ, RLQ, LLQ. Largest pocket seen within RLQ. IMPRESSION: 1. Ascites
[2022-09-03] MEDS ORDERED: LIDOCAINE 1% INJ 10MG/ML (30 ML VIAL-PF) SQ ONE (18:45)
[2022-09-03] MEDS: DEXTROSE 5% IN WATER 1,000 ML with SODIUM BICARB (1 MEQ/ML) 150 ML IV SCH (19:03)
[2022-09-03] MEDS: LACTULOSE 200 GM/300 ML (FROM 1/2 GAL JUG) RECTAL SCH (19:33)
--- NOTE | 2022-09-03 22:06 | XR ---
EXAMINATION TYPE: XR chest 1V DATE OF EXAM: 09/03/2022 9:59 PM COMPARISON: Chest radiographs from 09/03/2022 TECHNIQUE: XR chest 1V Frontal view of the chest. CLINICAL INDICATION:Male, 47 years old with history of ng; FINDINGS: Lungs/Pleura: There is no evidence of pleural effusion, focal consolidation, or pneumothorax. Pulmonary vascularity: Unremarkable. Heart/mediastinum: Cardiomediastinal silhouette is unremarkable. Musculoskeletal: No acute osseous pathology. Lines/Tubes: Nasogastric tube demonstrated with distal tip in the left upper quadrant and sidehole at the GE junct ion. IMPRESSION: Interval placement of NG tube with distal tip in the left upper quadrant and sidehole at the GE junct ion. Recommend advancement of approximately 6 cm.
[2022-09-03] MEDS: MIDODRINE 5 MG TAB PO SCH ×2 (22:18→22:28)
[2022-09-04] MEDS: RIFAXIMIN 550 MG TABLET PO SCH ×3 (00:16→23:18)
[2022-09-04] MEDS: ALBUMIN HUMAN 25% 50 ML in EMPTY BAG 1 BAG IVPB SCH ×2 (00:23→00:58)
[2022-09-04] MEDS: DEXTROSE 5% IN WATER 1,000 ML with SODIUM BICARB (1 MEQ/ML) 150 ML IV SCH ×2 (01:30→06:06)
--- NOTE | 2022-09-04 01:55 | OP ---
OPERATIVE REPORT DATE OF SERVICE : PREOPERATIVE DIAGNOSES: Acute on chronic liver failure with cirrhosis of the liver. POSTOPERATIVE DIAGNOSES: Acute on chronic liver failure with cirrhosis of the liver. PROCEDURE PERFORMED: Ultrasound-guided 20 cm dialysis catheter placed, left femoral approach. DESCRIPTION OF PROCEDURE: Left groin was prepped and drapes were applied in a sterile manner. 1% lidocaine was infiltrated. Ultrasound-guided micropuncture needle was introduced to the left femoral vein. Micropuncture guidewire was passed and 4-Burmese dilator was advanced on the top of the guidewire. Then, we passed a regular guidewire without any resistance. Dilator was advanced. Then, dialysis catheter was advanced on the top of the guidewire and flushed with heparin saline and hep-locked, secured with 3-0 nylon. The patient tolerated the procedure well. MMODL / IJN: [id number] /
--- NOTE | 2022-09-04 04:09 | P.CNPUL ---
History of Present Illness Consult date: 09/04/22 Requesting physician: Hakan Valentino Reason for consult: other (ICU management) Chief complaint: Altered mental status History of present illness: I am seeing this patient in new consultation today 09/04/2022 for ICU management. We were asked to see this patient for ICU management, while the oneal low awaits a bed at [facility]. Patient is a 47-year-old white male with past medical history of end-stage liver disease, alcoholism, polysubstance abuse, hepatitis B, HIV, and schizophrenia. Patient was brought in by his mother for altered mental status. Patient did have a recent hospital admission at [facility] for liver failure. Patient was transferred to [facility], where he is established with his watch crystal molder Dr. Medrano. Apparently, patient was recently discharged from [facility] on August 19 for acute liver failure on lactulose and rifaximin. Patient's mother states that he has been taking all his medications as ordered. He has been experiencing frequent diarrhea. Patient is very jaundiced. Patient is completely obtunded, and I am unable to retrieve an HPI from him. On arrival to emergency room, patient was found to be in acute renal failure with a creatinine of 8.80, BUN 84. A left femoral temporary hemodialysis catheter was placed, and patient is currently receiving hemodialysis. He did become hypotensive with initiation of hemod ialysis. He was fluid resuscitated with 3 L normal saline. Patient's blood pressure is improved with norepinephrine infusing at 0.17 mcg/kg/m. Patient also has sodium bicarbonate 3 A in D5W infusing at 100 mL per hour. He is hypothermic, and will need rewarming. Patient's LFTs are within defined limits. Ammonia level was 400 and recheck is down to 62. Lactulose is being given through a NG tube. CT of abdomen and pelvis on arrival showed ascites, right inguinal hernia, splenomegaly, and bilateral femoral head changes suggestive of avascular necrosis. Abdominal ultrasound showed a large pocket of ascites in the right lower quadrant. A gallbladder ultrasound done on patient's recent admission on 08/14/2022 showed no discrete liver mass, multiple gallstones, and mild gallbladder wall thickening suggestive of cholecystitis. Brain CT without contrast showed no acute intracranial process. Chest x-ray shows no acute cardiopulmonary process. CBC on arrival shows a WBC count of 7.6, hemoglobin 10.9, hematocrit hematocrit 31.3, platelets 53,000. Patient's coagulation profile is abnormal. No evidence of bleeding. Patient's BMP shows a sodium 133, potassium 4.5, chloride 107, serum CO2 11, BUN 84, creatinine 8.88, glucose of 77. Patient's total bilirubin was 15.1. Lipase 1200. Urine tox screen for opiates and TCAs. Serum alcohol level was less than 10. Patient was negative for COVID-19. He is receiving one dose of Rocephin in the emergency room. Blood and urine cultures were ordered. Patient's condition is critical, and he is waiting transfer to [facility]. In the meantime, patient will be admitted to the intensive care unit. Patient's CODE STATUS is DO NOT RESUSCITATE and DO NOT INTUBATE with exception of vasopressors. Review of Systems I'm unable to obtain a review of systems due to patient being obtunded Past Medical History Past Medical History: Hyperlipidemia, Liver Disease, Neurologic Disorder, Skin Disorder Additional Past Medical History / Comment(s): HIV; hepatitis B (states he is cured); schizophrenia;occasionally has dizziness; History of Any Multi-Drug Resistant Organisms: MRSA Date of last positivie culture/infection: 12/19/14 MDRO Source:: Neck Additional Past Surgical History / Comment(s): fistula removal X2, eye Past Anesthesia/Blood Transfusion Reactions: No Reported Reaction Past Psychological History: Anxiety, Bipolar, Panic Disorder, Schizophrenia Smoking Status: Current every day smoker Past Alcohol Use History: Abuse, Daily, Heavy Past Drug Use History: Methamphetamine - Past Family History Father Family Medical History: Myocardial Infarction ([place]) Mother Family Medical History: Cancer Medications and Allergies Home Medications Medication Instructions Recorded Confirmed Type Bictegrav/Emtricit/Tenofov Ala 1 tab PO QAM 08/14/22 09/03/22 History [Biktarvy 50-200-25 mg Tablet] Lactulose [Constulose] 20 gm PO TID 08/14/22 09/03/22 History Melatonin [Melatonin Dissolving] 12 mg PO HS 08/14/22 09/03/22 History Omeprazole 20 mg PO QAM 08/14/22 09/03/22 History QUEtiapine [SEROquel] 100 mg PO HS 08/14/22 09/03/22 History Spironolactone [Aldactone] 25 mg PO QAM 08/14/22 09/03/22 History levETIRAcetam [Keppra] 1,000 mg PO QAM 08/14/22 09/03/22 History Folic Acid 1 mg PO QAM 09/03/22 09/03/22 History Rifaximin [Xifaxan] 550 mg PO BID 09/03/22 09/03/22 History Tab-A-Brunilda 1 tab PO QAM 09/03/22 09/03/22 History carvediloL [Coreg] 3.125 mg PO BID 09/03/22 09/03/22 History Allergies Allergy/AdvReac Type Severity Reaction Status Date / Time ciprofloxacin [From Cipro] Allergy Rash/Hives Verified 09/03/22 11:37 ciprofloxacin HCl Allergy Rash/Hives Verified 09/03/22 11:37 [From Cipro] Physical Exam Vitals: Vital Signs Temp Pulse Resp BP BP Pulse Ox 09/04/22 01:42 94.5 F L 18 120/62 09/04/22 01:41 94.5 F L 80 20 106/66 09/04/22 01:00 94.5 F L 80 18 113/70 09/03/22 22:39 93.2 F L 87 18 80/58 97 09/03/22 21:51 92.5 F L 09/03/22 21:39 92/70 09/03/22 21:11 80 18 109/76 98 09/03/22 19:37 81 17 114/72 100 09/03/22 18:30 79 18 101/76 96 09/03/22 16:00 71 22 113/69 99 09/03/22 15:00 72 18 97/52 100 09/03/22 13:00 69 18 94/60 96 09/03/22 12:23 74 22 93/56 95 09/03/22 10:23 98.0 F 77 14 81/53 100 Intake and Output 09/03/22 09/03/22 09/04/22 14:59 22:59 06:59 Intake Total 24.283 501.786 Output Total 10 39 Balance -10 24.283 462.786 Intake: Intake, IV Titration 24.283 1.786 Amount Norepinephrine 32 mg In 24.283 1.786 Sodium Chloride 0.9% 218 ml @ 0.03 MCG/KG/MIN 1. 276 mls/hr IV .Q24H ONE Rx#:[id number] Hemodialysis 500 Output: Urine 10 Uretheral (Pritchett) 10 Hemodialysis 39 Other: Weight 90.718 kg GENERAL EXAM: Obtunded and malnourished, 47-year-old male, who is jaundiced HEAD: Normocephalic and atraumatic EYES: Right cornea is opaque, left pupil is sluggish to stimuli with light. Icteric sclera NOSE: Clear with pink turbinates. THROAT: No erythema or exudates. NECK: No masses, no JVD. CHEST: No chest wall deformity. LUNGS: Equal air entry with no crackles, wheeze, rhonchi or dullness. On room air. He is tachypneic. No accessory muscle use.. CVS: S1 and S2 normal with no audible murmur, regular rhythm. No extra heart sounds ABDOMEN: Abdomen is slightly distended, there is hepatomegaly. Bowel sounds are hypoactive, no guarding or rigidity. SPINE: No scoliosis or deformity SKIN: Jaundice CENTRAL NERVOUS SYSTEM: tone is normal in all 4 extremities. He is minimally responsive to painful stimuli EXTREMITIES: There is no peripheral edema, clubbing, or cyanosis. Peripheral pulses are intact. Results - Laboratory Findings CBC and BMP: 09/04/22 06:44 09/04/22 06:44 PT/INR, D-dimer PT 26.4 sec (9.0-12.0) H 09/03/22 10:40 INR 2.7 (<1.2) H 09/03/22 10:40 Abnormal lab findings: Abnormal Labs 09/03/22 09/03/22 09/03/22 10:40 10:40 10:40 RBC 2.87 L Hgb 10.9 L Hct 31.3 L MCV 109.1 H D MCH 38.2 H Plt Count 53 L Lymphocytes # 0.9 L Monocytes # 1.6 H Macrocytosis Marked A PT 26.4 H INR 2.7 H APTT 43.6 H Sodium 133 L Carbon Dioxide 11 L BUN 84 H Creatinine 8.88 H* Calcium 7.3 L Total Bilirubin 15.1 H* Conjugated Bilirubin 8.3 H Unconjugated Bilirubin 2.0 H Delta Bilirubin 4.8 H Ammonia Albumin 2.1 L Lipase 1209 H Urine Protein Urine Glucose (UA) Urine Blood Urine Bilirubin Ur Leukocyte Esterase Urine RBC Urine WBC Urine WBC Clumps Ur Squamous Epith Cells Urine Bacteria Urine Mucus Urine Opiates Screen U Tricyclic Antidepress 09/03/22 09/03/22 09/04/22 10:40 11:50 01:26 RBC Hgb Hct MCV MCH Plt Count Lymphocytes # Monocytes # Macrocytosis PT INR APTT Sodium Carbon Dioxide BUN Creatinine Calcium Total Bilirubin Conjugated Bilirubin Unconjugated Bilirubin Delta Bilirubin Ammonia 400 H 62 H Albumin Lipase Urine Protein 1+ H Urine Glucose (UA) Trace H Urine Blood Small H Urine Bilirubin 2+ H Ur Leukocyte Esterase Trace H Urine RBC 12 H Urine WBC 33 H Urine WBC Clumps Many H Ur Squamous Epith Cells 10 H Urine Bacteria Rare H Urine Mucus Few H Urine Opiates Screen Detected H U Tricyclic Antidepress Detected H - Diagnostic Findings Chest x-ray: image reviewed Assessment and Plan Assessment: Hypotension with suspected sepsis. Blood cultures are pending. Patient is hypotensive requiring vasopressor support with norepinephrine. Altered mental status secondary to hepatic and uremic encephalopathy History of End-stage liver disease. Patient is established with his watch crystal molder Dr. Medrano at [facility]. Apparently, patient was recently discharged from [facility] on August 19 for acute liver failure. He was sent home on lactulose and rifaximin. Ammonia level was 400 on arrival. Patient is currently receiving lactulose through an NG tube. patient's repeat ammonia down to 62. Acute renal failure. Creatinine was 8.88 on arrival. A left femoral hemodialysis catheter is in place, and patient is currently receiving hemodialysis Acute anion gap metabolic acidosis Dehydration Hypothermia Thrombocytopenia secondary to alcoholism Coagulopathy secondary to liver failure Macrocytic anemia Alcoholism History of polysubstance abuse History of hepatitis B HIV positive Schizophrenia Plan: Patient's medications, labs, chest x-ray reviewed Is currently requiring high doses of norepinephrine for blood pressure support Blood cultures are pending Lactic acid level pending Will add empiric antibiotic coverage Ultrasound of the gallbladder Patient is hypothermic and will required rewarming Receiving lactulose through a NG-tube, repeat ammonia down to 62 Repeat labs in the morning Left femoral hemodialysis catheter in place, currently receiving hemodialysis Patient is awaiting transfer to [facility], he will be monitored in the intensive care unit until then Patient's prognosis is poor, and he is a DO NOT RESUSCITATE and DO NOT INTUBATE. We will continue to follow I have personally seen and examined the patient, performed the documentation and the assessment and plan as written. Number of minutes spent on the visit: 20 This is a joint evaluation that was done along with a nurse practitioner. This is a critically ill 47-year-old male patient with end-stage liver disease/liver cirrhosis and ongoing liver failure. The patient presented to us with altered mentation, dehydration, hypotension and acute kidney injury. Patient is on the undergone a session of hemodialysis yesterday. He has a femoral hemodialysis catheter in his left groin. He is in shock. He is hypotensive. He is currently on a bicarbonate infusion running at the rate of 100 mL an hour. Is also on norepinephrine running at 0.2 microvascular kilogram per minute and vasopressin at physiologic dose. He is covered with IV antibiotics and the patient is currently on IV Zosyn. Cultures are still pending for now. Ammonia level is improving. The patient is an NG tube in place. The patient is receiving Xifaxan and lactulose. Ultrasound the gallbladder was noted. CAT scan of the abdomen was noted and the patient has mild ascites, avascular necrosis of the hips and compression fractures. The patient has a clear chest x-ray. He is currently on room air oxygen. No evidence of any aspiration or pneumonia. He is a DNR/DNI CODE STATUS. The mother is at the bedside. We'll transfer the patient to the intensive care unit once bed available. For now, the patient is in the emergency department. Meanwhile, and parallel, with working on transferring this patient to [facility] regarding his liver failure. Number of minutes spent on the visit: 30 Time with Patient: Greater than 30
--- NOTE | 2022-09-04 06:01 | CONS ---
DATE OF CONSULTATION: 09/03/2022 PREOPERATIVE DIAGNOSES: Cirrhosis of the liver with acute on chronic renal failure. POSTOPERATIVE DIAGNOSES: Cirrhosis of the liver with acute on chronic renal failure. PROCEDURE PERFORMED: This patient was called in for placement of urgent dialysis catheter. This patient has cirrhosis of the liver. The patient is going to [facility] to be admitted. The patient needs liver transplant. The patient's potassium is 4.6, creatinine is 8.8, BUN is 84. PHYSICAL EXAMINATION: GENERAL: On examination, the patient is seen in the emergency room. The patient is very restless and the patient has severe jaundice, cirrhosis of the liver. CHEST: Clear. LUNGS: Clear to auscultation. HEART: First and second heart sounds present. ABDOMEN: Soft, nontender. VASCULAR: Brachial, radial and femoral pulses are present. PLAN: Placement of the dialysis catheter. Risks and complications discussed. MMODL / JESSICAN: [id number] / MTDD
[2022-09-04] MEDS: LACTULOSE 200 GM/300 ML (FROM 1/2 GAL JUG) RECTAL SCH ×2 (06:06→07:31)
[2022-09-04] MEDS: PIPERACILLIN-TAZOBACTAM 3.375 GM in SODIUM CHLORIDE 0.9% 100 ML IVPB SCH ×2 (07:12→17:41)
[2022-09-04] MEDS: VASOPRESSIN 60 UNIT in SODIUM CHLORIDE 0.9% 150 ML IV SCH (07:20)
[2022-09-04 07:23] LABS: HCT 29.4 % (39.0-53.0); HGB 10.3 gm/dL (13.0-17.5); MCH 37.7 pg (25.0-35.0); MCHC 34.9 g/dL (31.0-37.0); MCV 108.2 fL (80.0-100.0); Macrocytosis Marked; Mean Platelet Volume 9.6; RBC 2.72 m/uL (4.30-5.90); RDW 14.4 % (11.5-15.5); WBC 5.6 k/uL (3.8-10.6)
[2022-09-04 07:37] LABS: Albumin 2.1 g/dL (3.5-5.0); Calcium 6.9 mg/dL (8.4-10.2); Potassium 3.7 mmol/L (3.5-5.1); Total Protein 6.2 g/dL (6.3-8.2)
[2022-09-04 07:49] LABS: Platelet Count 72 k/uL (150-450)
[2022-09-04 07:51] LABS: Prothrombin Time 29.2 sec (9.0-12.0)
[2022-09-04 07:55] LABS: Total Bilirubin 17.3 mg/dL (0.2-1.3)
[2022-09-04] MEDS ORDERED: LACTULOSE 20 GM/30 ML CUP PO ONE (08:24)
[2022-09-04 08:46] LABS: Band Neutrophils % 6 %; Eosinophils # (M) 0.06 k/uL (0-0.7); Lymphocytes # (M) 0.45 k/uL (1.0-4.8); Monocytes # (M) 0.39 k/uL (0-1.0); Neutrophils % (M) 78 %; Nucleated Red Blood Cells 0 /100 WBC (0-0); Total Cells Counted 100; Toxic Granulation Present; Toxic Vacuolation Present
[2022-09-04 08:47] LABS: Poikilocytosis (M) Present
[2022-09-04] MEDS ORDERED: LACTULOSE 20 GM/30 ML CUP PO SCH (09:00)
--- NOTE | 2022-09-04 09:14 | US ---
EXAMINATION TYPE: US gallbladder DATE OF EXAM: 09/04/2022 COMPARISON: NONE CLINICAL INDICATION: Male, 47 years old with history of liver failure, jaundice; jaundice, known live r failure TECHNIQUE: Multiple sonographic images of the right upper quadrant are obtained. FINDINGS: EXAM MEASUREMENTS: Liver Length: 15.9 cm Gallbladder Wall: 0.4 cm CBD: 0.7 cm Right Kidney: 12.5 x 6.1 x 5.8 cm NUCLEAR SECURITY OFFICER NOTES:bowel gas limits study Pancreas: not seen due to bowel gas Liver: lobular contour, surrounding ascites seen Gallbladder: appears contracted with multiple stones within, wall thickening Evidence for sonographic Pickard's sign: no CBD: wnl Right Kidney: wnl IMPRESSION: 1. Cholelithiasis. 2. Mild ascites. 3. Lobular appearance to the liver
[2022-09-04] MEDS: THIAMINE 100 MG/ML 2 ML VIAL IVP SCH (09:43)
[2022-09-04] MEDS: LACTULOSE 20 GM/30 ML CUP PO SCH ×5 (09:43→15:22)
--- NOTE | 2022-09-04 11:04 | P.NPCON ---
History of Present Illness - Reason for Consult acute renal failure - History of Present Illness Reason for consultation: Acute kidney injury History of present illness: Patient is a 47-year-old male seen in renal consultation for acute kidney injury. Patient has history of alcohol-induced liver disease and was brought to the hospital by EMS due to altered mental status. Patient's mother is present at bedside who provides history. Patient is currently intubated. Patient's mother states that the patient was confused and not making any sense. He was also unable to get out of the bed and was incontinent of urine and bowel. Patient's creatinine on admission was 8.88. Pritchett catheter was placed. Patient is oliguric. Patient was acidotic with bicarb level of 11. Bilirubin elevated at 15.1 yesterday and is 17.1 today. Ammonia level was severely elevated at 462 today. No history of heart disease. Patient has history of alcohol abuse and quit as of end of last month. According to the mother he was taking Aleve for pain as needed. Oral intake has been poor the last few days. He is currently on high-dose Levophed as well as vasopressin. He underwent SLED treatment last night and is scheduled to undergo another treatment of dialysis today. Vital signs - on vasopressor support. General: Resting in bed. HEENT: Intubated. LUNGS: No audible rhonchi or wheezes. HEART: Rate and Rhythm are regular. ABDOMEN: Mild distention. EXTREMITITES: 1+ edema right lower extremity. Past Medical History Past Medical History: Hyperlipidemia, Liver Disease, Neurologic Disorder, Skin Disorder Additional Past Medical History / Comment(s): HIV; hepatitis B (states he is cured); schizophrenia;occasionally has dizziness; History of Any Multi-Drug Resistant Organisms: MRSA Date of last positivie culture/infection: 12/19/14 MDRO Source:: Neck Additional Past Surgical History / Comment(s): fistula removal X2, eye Past Anesthesia/Blood Transfusion Reactions: No Reported Reaction Past Psychological History: Anxiety, Bipolar, Panic Disorder, Schizophrenia Smoking Status: Current every day smoker Past Alcohol Use History: Abuse, Daily, Heavy Past Drug Use History: Methamphetamine - Past Family History Father Family Medical History: Myocardial Infarction ([place]) Mother Family Medical History: Cancer Medications and Allergies Home Medications Medication Instructions Recorded Confirmed Type Bictegrav/Emtricit/Tenofov Ala 1 tab PO QAM 08/14/22 09/03/22 History [Biktarvy 50-200-25 mg Tablet] Lactulose [Constulose] 20 gm PO TID 08/14/22 09/03/22 History Melatonin [Melatonin Dissolving] 12 mg PO HS 08/14/22 09/03/22 History Omeprazole 20 mg PO QAM 08/14/22 09/03/22 History QUEtiapine [SEROquel] 100 mg PO HS 08/14/22 09/03/22 History Spironolactone [Aldactone] 25 mg PO QAM 08/14/22 09/03/22 History levETIRAcetam [Keppra] 1,000 mg PO QAM 08/14/22 09/03/22 History Folic Acid 1 mg PO QAM 09/03/22 09/03/22 History Rifaximin [Xifaxan] 550 mg PO BID 09/03/22 09/03/22 History Tab-A-Brunilda 1 tab PO QAM 09/03/22 09/03/22 History carvediloL [Coreg] 3.125 mg PO BID 09/03/22 09/03/22 History Allergies Allergy/AdvReac Type Severity Reaction Status Date / Time ciprofloxacin [From Cipro] Allergy Rash/Hives Verified 09/03/22 11:37 ciprofloxacin HCl Allergy Rash/Hives Verified 09/03/22 11:37 [From Cipro] Physical Exam Vitals: Vital Signs Temp Pulse Resp BP BP Pulse Ox 09/04/22 10:00 87 18 95 09/04/22 09:05 98.2 F 90 22 115/90 94 L 09/04/22 08:10 93 18 114/68 95 09/04/22 07:20 97 18 86/45 95 09/04/22 07:09 97.9 F 97 16 84/43 95 09/04/22 06:50 90 15 92/39 96 09/04/22 03:21 90 14 99/51 95 09/04/22 01:42 94.5 F L 18 120/62 09/04/22 01:41 94.5 F L 80 20 106/66 09/04/22 01:00 94.5 F L 80 18 113/70 09/03/22 22:39 93.2 F L 87 18 80/58 97 09/03/22 21:51 92.5 F L 09/03/22 21:39 92/70 09/03/22 21:11 80 18 109/76 98 09/03/22 19:37 81 17 114/72 100 09/03/22 18:30 79 18 101/76 96 09/03/22 16:00 71 22 113/69 99 09/03/22 15:00 72 18 97/52 100 09/03/22 13:00 69 18 94/60 96 09/03/22 12:23 74 22 93/56 95 Intake and Output 09/03/22 09/04/22 09/04/22 22:59 06:59 14:59 Intake Total 24.283 501.786 Output Total 39 Balance 24.283 462.786 Intake: Intake, IV Titration 24.283 1.786 Amount Norepinephrine 32 mg In 24.283 1.786 Sodium Chloride 0.9% 218 ml @ 0.03 MCG/KG/MIN 1. 276 mls/hr IV .Q24H ONE Rx#:[id number] Hemodialysis 500 Output: Hemodialysis 39 Results - Lab Results Most recent lab results Calcium 6.9 mg/dL (8.4-10.2) L 09/04/22 06:44 09/04/22 06:44 09/04/22 06:44 Assessment and Plan Plan: Assessment: 1. Acute kidney injury secondary to ATN secondary to hypotension. Creatinine 8.88 on admission. Baseline creatinine 0.6 as of 08/15/2022. Oliguric. Started on renal replacement therapy 09/03/2022 due to severe renal failure/hyperammonemia, acidosis, oliguria. No hydronephrosis noted on kidney ultrasound. 2. Alcohol liver disease. Patient follows at [facility]. 3. Metabolic acidosis secondary to acute kidney injury. 4. Hepatic encephalopathy. Ammonia level improved. 5. Ascites. May need paracentesis this admission. Plan: Short treatment of dialysis today. Maintain bicarb drip. Maintain midodrine. Wean FiO2 and vasopressors as able. Continue to monitor renal function and urine output. Repeat BMP this afternoon. Prognosis guarded. Awaits transfer to [facility]. Thank you for the consultation. I will continue to follow the patient with you during his hospital stay.
--- NOTE | 2022-09-04 12:39 | P.CONS ---
History of Present Illness - Reason for Consult Consult date: 09/04/22 Hepatic encephalopathy Requesting physician: Hakan Valentino - Chief Complaint Confusion, weakness - History of Present Illness This a 47-year-old male with a past medical history of alcohol abuse, methamphetamine abuse, heroin abuse, hepatitis B, HIV, schizophrenia with liver failure who presented to the emergency department. HPI obtained from chart. Patient lives with mother and patient was very weak and his mother coming Up so she called EMS. Apparently patient was recently admitted and discharged from [facility] on 08/19/2022 for acute liver failure. He follows with administrative technician Dr. Medrano. According to the chart the patient's mother states he has not had any alcohol since his discharge from [facility]. Patient is lying in bed, jaundice, mostly nonresponsive. Patient was noted to have a pneumonia level of 400 on admission. He was started on lactulose and Xifaxan. He's had told a bowel movement since admission. Recommendation was for patient to be transferred to [facility], he has been accepted however waiting for an ICU bed. Patient is hypothermic on admission, bear hugger applied. Temperature has come up. Patient in acute kidney injury at admission, vascular surgery was consulted and a temporary HD catheter was placed. Labs WBC 5.6 hemoglobin 10 hematocrit 29 platelet count 72,000 INR 3.0 sodium 136 potassium 3.7 BUN 65 creatinine 6.9. Lactic acid 4.8 total bilirubin 17 AST 54 ALT 29 alkaline phosphatase 110 ammonia 62 lipase 382 The abdomen and pelvis without contrast reports ascites, fluid appears to extend into right inguinal hernia and into the right hemiscrotum. Splenomegaly. Bilateral femoral head changes suggestive for avascular necrosis. Some compression fractures may be present. Findings are similar to comparison study. Abdominal ultrasound reports ascites Gallbladder ultrasound reports cholelithiasis, mild ascites, lobular appearance to liver Review of Systems ROS unobtainable: due to mental status Past Medical History Past Medical History: Hyperlipidemia, Liver Disease, Neurologic Disorder, Skin Disorder Additional Past Medical History / Comment(s): HIV; hepatitis B (states he is cured); schizophrenia;occasionally has dizziness; History of Any Multi-Drug Resistant Organisms: MRSA Year Discovered:: 12/19/14 MDRO Source:: Neck Additional Past Surgical History / Comment(s): fistula removal X2, eye Past Anesthesia/Blood Transfusion Reactions: No Reported Reaction Past Psychological History: Anxiety, Bipolar, Panic Disorder, Schizophrenia Smoking Status: Current every day smoker Past Alcohol Use History: Abuse, Daily, Heavy Past Drug Use History: Methamphetamine - Past Family History Father Family Medical History: Myocardial Infarction (SD) Mother Family Medical History: Cancer Medications and Allergies Home Medications Medication Instructions Recorded Confirmed Type Bictegrav/Emtricit/Tenofov Ala 1 tab PO QAM 08/14/22 09/03/22 History [Biktarvy 50-200-25 mg Tablet] Lactulose [Constulose] 20 gm PO TID 08/14/22 09/03/22 History Melatonin [Melatonin Dissolving] 12 mg PO HS 08/14/22 09/03/22 History Omeprazole 20 mg PO QAM 08/14/22 09/03/22 History QUEtiapine [SEROquel] 100 mg PO HS 08/14/22 09/03/22 History Spironolactone [Aldactone] 25 mg PO QAM 08/14/22 09/03/22 History levETIRAcetam [Keppra] 1,000 mg PO QAM 08/14/22 09/03/22 History Folic Acid 1 mg PO QAM 09/03/22 09/03/22 History Rifaximin [Xifaxan] 550 mg PO BID 09/03/22 09/03/22 History Tab-A-Brunilda 1 tab PO QAM 09/03/22 09/03/22 History carvediloL [Coreg] 3.125 mg PO BID 09/03/22 09/03/22 History Allergies Allergy/AdvReac Type Severity Reaction Status Date / Time ciprofloxacin [From Cipro] Allergy Rash/Hives Verified 09/03/22 11:37 ciprofloxacin HCl Allergy Rash/Hives Verified 09/03/22 11:37 [From Cipro] Physical Exam Vitals: Vital Signs Temp Pulse Resp BP BP Pulse Ox 09/04/22 09:05 98.2 F 90 22 115/90 94 L 09/04/22 08:10 93 18 114/68 95 09/04/22 07:20 97 18 86/45 95 09/04/22 07:09 97.9 F 97 16 84/43 95 09/04/22 06:50 90 15 92/39 96 09/04/22 03:21 90 14 99/51 95 09/04/22 01:42 94.5 F L 18 120/62 09/04/22 01:41 94.5 F L 80 20 106/66 09/04/22 01:00 94.5 F L 80 18 113/70 09/03/22 22:39 93.2 F L 87 18 80/58 97 09/03/22 21:51 92.5 F L 09/03/22 21:39 92/70 09/03/22 21:11 80 18 109/76 98 09/03/22 19:37 81 17 114/72 100 09/03/22 18:30 79 18 101/76 96 09/03/22 16:00 71 22 113/69 99 09/03/22 15:00 72 18 97/52 100 09/03/22 13:00 69 18 94/60 96 09/03/22 12:23 74 22 93/56 95 09/03/22 10:23 98.0 F 77 14 81/53 100 Intake and Output 09/03/22 09/04/22 09/04/22 22:59 06:59 14:59 Intake Total 24.283 501.786 Output Total 39 Balance 24.283 462.786 Intake: Intake, IV Titration 24.283 1.786 Amount Norepinephrine 32 mg In 24.283 1.786 Sodium Chloride 0.9% 218 ml @ 0.03 MCG/KG/MIN 1. 276 mls/hr IV .Q24H ONE Rx#:[id number] Hemodialysis 500 Output: Hemodialysis 39 General appearance: The patient is drowsy, obtunded. HET: Head is normocephalic and atraumatic. Conjunctiva pink. Sclera icteric. Neck: Supple without lymphadenopathy. Trachea midline. Heart: S1 S2. Regular rate and rhythm. Lungs: Clear to auscultation. Abdomen: Soft, ascites. Skin: No rashes. Jaundice. Extremities: Normal skin color and turgor. Pedal edema. Neurological: Obtunded. Results CBC & Chem 7: 09/04/22 06:44 09/04/22 06:44 Labs: Abnormal Lab Results - Last 24 Hours (Table) 09/03/22 09/03/22 09/03/22 Range/Units 10:40 10:40 10:40 RBC 2.87 L (4.30-5.90) m/uL Hgb 10.9 L (13.0-17.5) gm/dL Hct 31.3 L (39.0-53.0) % MCV 109.1 H D (80.0-100.0) fL MCH 38.2 H (25.0-35.0) pg Plt Count 53 L (150-450) k/uL Lymphocytes # 0.9 L (1.0-4.8) k/uL Lymphocytes # (Manual) (1.0-4.8) k/uL Monocytes # 1.6 H (0-1.0) k/uL Macrocytosis Marked A PT 26.4 H (9.0-12.0) sec INR 2.7 H (<1.2) APTT 43.6 H (22.0-30.0) sec Sodium 133 L (137-145) mmol/L Carbon Dioxide 11 L (22-30) mmol/L BUN 84 H (9-20) mg/dL Creatinine 8.88 H* (0.66-1.25) mg/dL Plasma Lactic Acid Tim (0.7-2.0) mmol/L Calcium 7.3 L (8.4-10.2) mg/dL Total Bilirubin 15.1 H* (0.2-1.3) mg/dL Conjugated Bilirubin 8.3 H (0.0-0.3) mg/dL Unconjugated Bilirubin 2.0 H (0.0-1.1) mg/dL Delta Bilirubin 4.8 H (0.0-0.2) mg/dL Ammonia (<30) umol/L Total Protein (6.3-8.2) g/dL Albumin 2.1 L (3.5-5.0) g/dL Lipase 1209 H (23-300) U/L Urine Protein (Negative) Urine Glucose (UA) (Negative) Urine Blood (Negative) Urine Bilirubin (Negative) Ur Leukocyte Esterase (Negative) Urine RBC (0-5) /hpf Urine WBC (0-5) /hpf Urine WBC Clumps (None) /hpf Ur Squamous Epith Cells (0-4) /hpf Urine Bacteria (None) /hpf Urine Mucus (None) /hpf Urine Opiates Screen (NotDetected) U Tricyclic Antidepress (NotDetected) 09/03/22 09/03/22 09/04/22 Range/Units 10:40 11:50 01:26 RBC (4.30-5.90) m/uL Hgb (13.0-17.5) gm/dL Hct (39.0-53.0) % MCV (80.0-100.0) fL MCH (25.0-35.0) pg Plt Count (150-450) k/uL Lymphocytes # (1.0-4.8) k/uL Lymphocytes # (Manual) (1.0-4.8) k/uL Monocytes # (0-1.0) k/uL Macrocytosis PT (9.0-12.0) sec INR (<1.2) APTT (22.0-30.0) sec Sodium (137-145) mmol/L Carbon Dioxide (22-30) mmol/L BUN (9-20) mg/dL Creatinine (0.66-1.25) mg/dL Plasma Lactic Acid Tim (0.7-2.0) mmol/L Calcium (8.4-10.2) mg/dL Total Bilirubin (0.2-1.3) mg/dL Conjugated Bilirubin (0.0-0.3) mg/dL Unconjugated Bilirubin (0.0-1.1) mg/dL Delta Bilirubin (0.0-0.2) mg/dL Ammonia 400 H 62 H (<30) umol/L Total Protein (6.3-8.2) g/dL Albumin (3.5-5.0) g/dL Lipase (23-300) U/L Urine Protein 1+ H (Negative) Urine Glucose (UA) Trace H (Negative) Urine Blood Small H (Negative) Urine Bilirubin 2+ H (Negative) Ur Leukocyte Esterase Trace H (Negative) Urine RBC 12 H (0-5) /hpf Urine WBC 33 H (0-5) /hpf Urine WBC Clumps Many H (None) /hpf Ur Squamous Epith Cells 10 H (0-4) /hpf Urine Bacteria Rare H (None) /hpf Urine Mucus Few H (None) /hpf Urine Opiates Screen Detected H (NotDetected) U Tricyclic Antidepress Detected H (NotDetected) 09/04/22 09/04/22 09/04/22 Range/Units 06:44 06:44 06:44 RBC 2.72 L (4.30-5.90) m/uL Hgb 10.3 L (13.0-17.5) gm/dL Hct 29.4 L (39.0-53.0) % MCV 108.2 H (80.0-100.0) fL MCH 37.7 H (25.0-35.0) pg Plt Count 72 L (150-450) k/uL Lymphocytes # (1.0-4.8) k/uL Lymphocytes # (Manual) 0.45 L (1.0-4.8) k/uL Monocytes # (0-1.0) k/uL Macrocytosis Marked A PT 29.2 H (9.0-12.0) sec INR 3.0 H (<1.2) APTT (22.0-30.0) sec Sodium 136 L (137-145) mmol/L Carbon Dioxide 16 L (22-30) mmol/L BUN 65 H (9-20) mg/dL Creatinine 6.95 H (0.66-1.25) mg/dL Plasma Lactic Acid Tim (0.7-2.0) mmol/L Calcium 6.9 L (8.4-10.2) mg/dL Total Bilirubin 17.3 H* (0.2-1.3) mg/dL Conjugated Bilirubin (0.0-0.3) mg/dL Unconjugated Bilirubin (0.0-1.1) mg/dL Delta Bilirubin (0.0-0.2) mg/dL Ammonia (<30) umol/L Total Protein 6.2 L (6.3-8.2) g/dL Albumin 2.1 L (3.5-5.0) g/dL Lipase 382 H (23-300) U/L Urine Protein (Negative) Urine Glucose (UA) (Negative) Urine Blood (Negative) Urine Bilirubin (Negative) Ur Leukocyte Esterase (Negative) Urine RBC (0-5) /hpf Urine WBC (0-5) /hpf Urine WBC Clumps (None) /hpf Ur Squamous Epith Cells (0-4) /hpf Urine Bacteria (None) /hpf Urine Mucus (None) /hpf Urine Opiates Screen (NotDetected) U Tricyclic Antidepress (NotDetected) 09/04/22 Range/Units 06:45 RBC (4.30-5.90) m/uL Hgb (13.0-17.5) gm/dL Hct (39.0-53.0) % MCV (80.0-100.0) fL MCH (25.0-35.0) pg Plt Count (150-450) k/uL Lymphocytes # (1.0-4.8) k/uL Lymphocytes # (Manual) (1.0-4.8) k/uL Monocytes # (0-1.0) k/uL Macrocytosis PT (9.0-12.0) sec INR (<1.2) APTT (22.0-30.0) sec Sodium (137-145) mmol/L Carbon Dioxide (22-30) mmol/L BUN (9-20) mg/dL Creatinine (0.66-1.25) mg/dL Plasma Lactic Acid Tim 4.8 H* (0.7-2.0) mmol/L Calcium (8.4-10.2) mg/dL Total Bilirubin (0.2-1.3) mg/dL Conjugated Bilirubin (0.0-0.3) mg/dL Unconjugated Bilirubin (0.0-1.1) mg/dL Delta Bilirubin (0.0-0.2) mg/dL Ammonia (<30) umol/L Total Protein (6.3-8.2) g/dL Albumin (3.5-5.0) g/dL Lipase (23-300) U/L Urine Protein (Negative) Urine Glucose (UA) (Negative) Urine Blood (Negative) Urine Bilirubin (Negative) Ur Leukocyte Esterase (Negative) Urine RBC (0-5) /hpf Urine WBC (0-5) /hpf Urine WBC Clumps (None) /hpf Ur Squamous Epith Cells (0-4) /hpf Urine Bacteria (None) /hpf Urine Mucus (None) /hpf Urine Opiates Screen (NotDetected) U Tricyclic Antidepress (NotDetected) Microbiology - Last 24 Hours (Table) 09/03/22 11:50 Urine Culture - Preliminary Urine,Voided Assessment and Plan (1) Hepatic encephalopathy Narrative/Plan: 7-year-old with known history of alcohol abuse, methamphetamine and heroin abuse, hepatitis B and HIV who was recently hospitalized with acute liver failure and discharge from [facility] return back to the hospital with hepatic encephalopathy. Patient had the ammonia level of 400 on admission, acute renal failure, hypothermia, hypotension and nonresponsive for most part. Patient was started on lactulose per rectum and now has been switched to NG tube. Labs consistent with alcoholic hepatitis, he was started on Zosyn. Discussed with the nurse to give lactulose 30 g per NG tube every hour 3 doses until patient has bowel movement then continue as ordered. Continue Xifaxan. Continue symptomatic care. Recommend transfer to [facility], patient established with Dr. Harrell [facility]. Current Visit: Yes Status: Acute Code(s): K76.82 - HEPATIC ENCEPHALOPATHY SNOMED Code(s): 14454976 (2) Ascites Current Visit: Yes Status: Acute Code(s): R18.8 - OTHER ASCITES SNOMED Code(s): 437502594 (3) Hypothermia Current Visit: Yes Status: Acute Code(s): T68.XXXA - HYPOTHERMIA, INITIAL ENCOUNTER SNOMED Code(s): 753824979 (4) Coagulopathy Current Visit: Yes Status: Acute Code(s): D68.9 - COAGULATION DEFECT, UNSPECIFIED SNOMED Code(s): 44704375 (5) LES (acute kidney injury) Current Visit: Yes Status: Acute Code(s): N17.9 - ACUTE KIDNEY FAILURE, UNSPECIFIED SNOMED Code(s): 51720502 (6) Liver failure Current Visit: Yes Status: Acute Code(s): K72.90 - HEPATIC FAILURE, UNSPECIFIED WITHOUT COMA SNOMED Code(s): 82465171 Plan: 1. Continue symptomatic and supportive care 2. Lactulose 30 g given 1 dose per NG tube every hour 3 doses until patient has bowel movement. May need to continue if no bowel movement 3. Continue lactulose 30 g 3 times a day, Xifaxan 550 mg twice a day 4. Continue antibiotics 6. Daily CBC, CMP, INR 7. Recommend transfer to [facility] for acute liver failure, hepatic encephalopathy, further management with administrative technician Thank you for this consultation, we will continue to follow. Dr. Cari Parnell I agree with the dictator's note, documented as a scribe by Leia Carrington.
[2022-09-04] MEDS: MIDODRINE 5 MG TAB PO SCH ×2 (13:20→17:42)
--- NOTE | 2022-09-04 19:07 | P.HPIM ---
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 Patient currently obtunded, information being obtained from chart, staff and family at the bedside. Family reports patient has not consumed alcohol since his discharge ,exhibiting slow decline since his discharge from [facility] on 08/19/2022 for acute liver failure. Family states he started having excessive stooling, increased abdomen distention, weakness worsened, and EMS called for transport. Ammonia level on admission 400, started on rectal lactulose and Xifaxan. No bowel movement since admission. BUN 84, creatinine 8.88,temporary HD catheter placed for emergent dialysis.Maintained on pressor support with Levophed, vasopressin.WBC 5.6 hemoglobin 10.3, platelets 72 INR 3.0. Sodium 136, potassium 3.7, acidotic criore96, increased to 16, BUN 65 creatinine 6.95. Lactic acid 4.8, increased to 5.2, total bilirubin 17 AST 54 ALT 29 alkaline phosphatase 110 ammonia 62 lipase 1209-currently decreased to 382.Required Bear hugger,temperature improving. CT of abdomen and pelvis reporting ascites, fluid appears to extend into right inguinal hernia and into the right hemiscrotum,splenomegaly, bilateral femoral head changes suggestive for avascular necrosis. Some compression fractures may be present.Findings are similar to comparison study. Chest x-ray reported no acute process.Abdominal ultrasound reported ascites. Gallbladder ultrasound reports cholelithiasis, mild ascites, lobular appearance to liver. Review of Systems Review of systems unable to obtain as patient is obtunded Past Medical History Past Medical History: Hyperlipidemia, Liver Disease, Neurologic Disorder, Skin Disorder Additional Past Medical History / Comment(s): HIV; hepatitis B (states he is cured); schizophrenia;occasionally has dizziness; History of Any Multi-Drug Resistant Organisms: MRSA Date of last positivie culture/infection: 12/19/14 MDRO Source:: Neck Additional Past Surgical History / Comment(s): fistula removal X2, eye Past Anesthesia/Blood Transfusion Reactions: No Reported Reaction Past Psychological History: Anxiety, Bipolar, Panic Disorder, Schizophrenia Smoking Status: Current every day smoker Past Alcohol Use History: Abuse, Daily, Heavy Past Drug Use History: Methamphetamine - Past Family History Father Family Medical History: Myocardial Infarction (SD) Mother Family Medical History: Cancer Medications and Allergies Home Medications Medication Instructions Recorded Confirmed Type Bictegrav/Emtricit/Tenofov Ala 1 tab PO QAM 08/14/22 09/03/22 History [Biktarvy 50-200-25 mg Tablet] Lactulose [Constulose] 20 gm PO TID 08/14/22 09/03/22 History Melatonin [Melatonin Dissolving] 12 mg PO HS 08/14/22 09/03/22 History Omeprazole 20 mg PO QAM 08/14/22 09/03/22 History QUEtiapine [SEROquel] 100 mg PO HS 08/14/22 09/03/22 History Spironolactone [Aldactone] 25 mg PO QAM 08/14/22 09/03/22 History levETIRAcetam [Keppra] 1,000 mg PO QAM 08/14/22 09/03/22 History Folic Acid 1 mg PO QAM 09/03/22 09/03/22 History Rifaximin [Xifaxan] 550 mg PO BID 09/03/22 09/03/22 History Tab-A-Brunilda 1 tab PO QAM 09/03/22 09/03/22 History carvediloL [Coreg] 3.125 mg PO BID 09/03/22 09/03/22 History Allergies Allergy/AdvReac Type Severity Reaction Status Date / Time ciprofloxacin [From Cipro] Allergy Rash/Hives Verified 09/03/22 11:37 ciprofloxacin HCl Allergy Rash/Hives Verified 09/03/22 11:37 [From Cipro] Physical Exam Vitals: Vital Signs Temp Pulse Resp BP BP Pulse Ox 09/04/22 17:43 86 20 98/50 98 09/04/22 16:47 97.7 F 81 18 108/57 96 09/04/22 15:54 85 18 113/56 95 09/04/22 15:50 96.1 F L 20 93/59 09/04/22 14:16 97.7 F 86 20 110/57 94 L 09/04/22 13:32 89 18 105/54 95 09/04/22 13:15 86 18 107/55 95 09/04/22 12:47 87 18 93/42 95 09/04/22 11:34 98.1 F 91 18 102/43 96 09/04/22 10:00 87 18 95 09/04/22 09:05 98.2 F 90 22 115/90 94 L 09/04/22 08:10 93 18 114/68 95 09/04/22 07:20 97 18 86/45 95 09/04/22 07:09 97.9 F 97 16 84/43 95 09/04/22 06:50 90 15 92/39 96 09/04/22 03:21 90 14 99/51 95 09/04/22 01:42 94.5 F L 18 120/62 09/04/22 01:41 94.5 F L 80 20 106/66 09/04/22 01:00 94.5 F L 80 18 113/70 09/03/22 22:39 93.2 F L 87 18 80/58 97 09/03/22 21:51 92.5 F L 09/03/22 21:39 92/70 09/03/22 21:11 80 18 109/76 98 09/03/22 19:37 81 17 114/72 100 09/03/22 18:30 79 18 101/76 96 Intake and Output 09/04/22 09/04/22 09/04/22 06:59 14:59 22:59 Intake Total 501.786 400 Output Total 39 400 Balance 462.786 0 Intake: Intake, IV Titration 1.786 Amount Norepinephrine 32 mg In 1.786 Sodium Chloride 0.9% 218 ml @ 0.03 MCG/KG/MIN 1. 276 mls/hr IV .Q24H ONE Rx#:[id number] Hemodialysis 500 400 Output: Hemodialysis 39 400 General: The patient is obtunded, jaundiced. HEENT: Atraumatic, Normocephalic, Sclera icterus. Neck supple, no JVD Cardiovascular: Normal S1-S2, regular rate and rhythm, no murmurs. Respiratory: Lungs clear to auscultation bilaterally with no wheezes rhonchi or rales. Gastrointestinal: Abdomen is soft, distended, positive ascites, no guarding. EXTR: Positive edema Neurological: Unable to assess, obtunded Skin: Skin is warm and dry and no rashes noted. Results CBC & Chem 7: 09/04/22 06:44 09/04/22 06:44 Labs: Abnormal Lab Results - Last 24 Hours (Table) 09/04/22 09/04/22 09/04/22 Range/Units 01:26 06:44 06:44 RBC 2.72 L (4.30-5.90) m/uL Hgb 10.3 L (13.0-17.5) gm/dL Hct 29.4 L (39.0-53.0) % MCV 108.2 H (80.0-100.0) fL MCH 37.7 H (25.0-35.0) pg Plt Count 72 L (150-450) k/uL Lymphocytes # (Manual) 0.45 L (1.0-4.8) k/uL Macrocytosis Marked A PT 29.2 H (9.0-12.0) sec INR 3.0 H (<1.2) Sodium (137-145) mmol/L Carbon Dioxide (22-30) mmol/L BUN (9-20) mg/dL Creatinine (0.66-1.25) mg/dL Plasma Lactic Acid Tim (0.7-2.0) mmol/L Calcium (8.4-10.2) mg/dL Total Bilirubin (0.2-1.3) mg/dL Ammonia 62 H (<30) umol/L Total Protein (6.3-8.2) g/dL Albumin (3.5-5.0) g/dL Lipase (23-300) U/L 09/04/22 09/04/22 09/04/22 Range/Units 06:44 06:45 10:35 RBC (4.30-5.90) m/uL Hgb (13.0-17.5) gm/dL Hct (39.0-53.0) % MCV (80.0-100.0) fL MCH (25.0-35.0) pg Plt Count (150-450) k/uL Lymphocytes # (Manual) (1.0-4.8) k/uL Macrocytosis PT (9.0-12.0) sec INR (<1.2) Sodium 136 L (137-145) mmol/L Carbon Dioxide 16 L (22-30) mmol/L BUN 65 H (9-20) mg/dL Creatinine 6.95 H (0.66-1.25) mg/dL Plasma Lactic Acid Tim 4.8 H* 5.2 H* (0.7-2.0) mmol/L Calcium 6.9 L (8.4-10.2) mg/dL Total Bilirubin 17.3 H* (0.2-1.3) mg/dL Ammonia (<30) umol/L Total Protein 6.2 L (6.3-8.2) g/dL Albumin 2.1 L (3.5-5.0) g/dL Lipase 382 H (23-300) U/L Microbiology - Last 24 Hours (Table) 09/03/22 11:50 Urine Culture - Final Urine,Voided Assessment and Plan Assessment: Hepatic encephalopathy in a patient recently discharged from [facility] secondary to acute liver failure. Ammonia level 400 on admission. Acute renal failure, ATN secondary to hypotension. Emergent dialysis initiated. Metabolic acidosis secondary to the above, on bicarb drip Hypothermia Hypotension Alcoholic hepatitis Ascites Chronic Liver failure, worsening, established at the Hepatology clinic at [facility],Dr. Medrano Coagulopathy secondary to liver failure Alcohol abuse HIV Disease Bipolar disorder Nicotine dependence Plan: Continue on current medication regime ,monitoring and symptomatic kathleen atment. Maintain bicarb drip ,Xifaxan, Zosyn .Lactulose initially administered rectally, currently being administered via NG. Follow closely with nephrology, GI, flour blender. Transfer to [facility] initiated secondary to acute liver failure, hepatic encephalopathy to facilitate treatment with microbiology lab analyst, which we do not have at this site. Prognosis guarded, given multiple complex medical issues. Family at bedside, updated. The impression and plan of care has been dictated as directed. : I performed a history and examination of this patient, discussed the same with the dictator. I agree with the dictator's note ,documented as a scribe. Any additional findings or plans will be noted.
[2022-09-04 20:06] LABS: Potassium 3.6 mmol/L (3.5-5.1)
[2022-09-04] MEDS: NOREPINEPHRINE 32 MG in SODIUM CHLORIDE 0.9% 218 ML IV SCH (22:50)
[2022-09-05 01:29] LABS: Glucose,Whole Blood 118 mg/dL (70-110)
[2022-09-05] MEDS: DEXTROSE 5% IN WATER 1,000 ML with SODIUM BICARB (1 MEQ/ML) 150 ML IV SCH (03:05)
[2022-09-05] MEDS ORDERED: NALOXONE 0.4 MG/ML 1 ML VIAL IV PRN (03:11)
[2022-09-05] MEDS: PIPERACILLIN-TAZOBACTAM 3.375 GM in SODIUM CHLORIDE 0.9% 100 ML IVPB SCH ×2 (05:15→15:41)
[2022-09-05 05:16] LABS: HCT 30.4 % (39.0-53.0); HGB 10.9 gm/dL (13.0-17.5); MCHC 35.9 g/dL (31.0-37.0); MCV 108.6 fL (80.0-100.0); Macrocytosis Marked; Mean Platelet Volume 9.7; RDW 14.4 % (11.5-15.5); WBC 11.2 k/uL (3.8-10.6)
[2022-09-05 05:31] LABS: Magnesium 2.7 mg/dL (1.6-2.3); Potassium 3.4 mmol/L (3.5-5.1)
[2022-09-05 06:35] LABS: Platelet Count 53 k/uL (150-450)
[2022-09-05 06:48] LABS: Band Neutrophils % 9 %; Eosinophils # (M) 0.34 k/uL (0-0.7); Monocytes # (M) 0.22 k/uL (0-1.0); Neutrophils % (M) 78 %; Nucleated Red Blood Cells 0 /100 WBC (0-0); Target Cells Present; Total Cells Counted 100
[2022-09-05] MEDS: VASOPRESSIN 60 UNIT in SODIUM CHLORIDE 0.9% 150 ML IV SCH ×2 (07:23→10:10)
[2022-09-05] MEDS: MIDODRINE 5 MG TAB PO SCH ×3 (07:30→15:40)
[2022-09-05] MEDS: SODIUM CHLORIDE 0.9% 1,000 ML IV SCH ×2 (08:40→19:09)
--- NOTE | 2022-09-05 08:43 | P.PN ---
Subjective Progress Note Date: 09/05/22 Principal diagnosis: End-stage liver disease; hypotension and shock I am seeing this patient in new consultation today 09/04/2022 for ICU management. We were asked to see this patient for ICU management, while the patient awaits a bed at [facility]. Patient is a 47-year-old white male with past medical history of end-stage liver disease, alcoholism, polysubstance abuse, hepatitis B, HIV, and schizophrenia. Patient was brought in by his mother for altered mental status. Patient did have a recent hospital admission at [facility] for liver failure. Patient was transferred to [facility], where he is established with his drawing kiln operator Dr. Medrano. Apparently, patient was recently discharged from [facility] on August 19 for acute liver failure on lactulose and rifaximin. Patient's mother states that he has been taking all his medications as ordered. He has been experiencing frequent diarrhea. Patient is very jaundiced. Patient is completely obtunded, and I am unable to retrieve an HPI from him. On arrival to emergency room, patient was found to be in acute renal failure with a creatinine of 8.80, BUN 84. A left femoral temporary hemodialysis catheter was placed, and patient is currently receiving hemodialysis. He did become hypotensive with initiation of hemodialysis. He was fluid resuscitated with 3 L normal saline. Patient's blood pressure is improved with norepinephrine infusing at 0.17 mcg/kg/m. Patient also has sodium bicarbonate 3 A in D5W infusing at 100 mL per hour. He is hypothermic, and will need rewarming. Patient's LFTs are within defined limits. Ammonia level was 400 and recheck is down to 62. Lactulose is being given through a NG tube. CT of abdomen and pelvis on arrival showed ascites, right i nguinal hernia, splenomegaly, and bilateral femoral head changes suggestive of avascular necrosis. Abdominal ultrasound showed a large pocket of ascites in the right lower quadrant. A gallbladder ultrasound done on patient's recent admission on 08/14/2022 showed no discrete liver mass, multiple gallstones, and mild gallbladder wall thickening suggestive of cholecystitis. Brain CT without contrast showed no acute intracranial process. Chest x-ray shows no acute cardiopulmonary process. CBC on arrival shows a WBC count of 7.6, hemoglobin 10.9, hematocrit hematocrit 31.3, platelets 53,000. Patient's coagulation profile is abnormal. No evidence of bleeding. Patient's BMP shows a sodium 1 33, potassium 4.5, chloride 107, serum CO2 11, BUN 84, creatinine 8.88, glucose of 77. Patient's total bilirubin was 15.1. Lipase 1200. Urine tox screen for opiates and TCAs. Serum alcohol level was less than 10. Patient was negative for COVID-19. He is receiving one dose of Rocephin in the emergency room. Blood and urine cultures were ordered. Patient's condition is critical, and he is waiting transfer to [facility]. In the meantime, patient will be admitted to the intensive care unit. Patient's CODE STATUS is DO NOT RESUSCITATE and DO NOT INTUBATE with exception of vasopressors I'm seeing this patient today 09/05/2022 in follow-up in the intensive care unit. Patient on room air, in no acute distress. Patient is much more alert today he is able to answer simple questions. He is still disoriented. Patient's mother is at bedside. The plan is still to transfer the patient to [facility] once bed available. He is established with his drawing kiln operator at that facility. Patient did undergo hemodialysis yesterday, when he became quite hypotensive. He was started on norepinephrine which is currently infusing at 0.2 mics per kilogram per minute and vasopressin which is infusing at 0.03 units per minutes. Urine output was low throughout the night, and is picked up this morning and is in the order of 30-50 mL per hour. Patient's urine cultures show no growth at this point and blood cultures are pending. He is empirically covered on Zosyn. He did have an NG tube which he has inadvertently removed. He was receiving lactulose and rifaximin. Patient does have a Fecal management system with large amounts of liquid stool. Patient's repeat ammonia level was down to 62 at last recheck. Today's ammonia level is currently pending. BMP this morning shows a sodium 138, potassium 3.4, chloride 103, serum CO2 up to 23, BUN 70, creatinine 6.89, glucose 108. Patient is receiving sodium bicarb with 3 A and D5W infusing at 100 ML's per hour and this could probably be switched over to normal saline. Patient's lactic acid is down from 3.3 to 2.8 this morning. Patient's CBC this morning shows a WBC count of 11.2, hemoglobin 10.9, hematocrit 30.4, platelets low at 53,000. Patient's condition is critical and overall prognosis remains poor. Objective - Vital Signs Vital signs: Vital Signs Temp 97.3 F L 09/05/22 04:00 Pulse 79 09/05/22 07:00 Resp 15 09/05/22 07:00 BP 103/58 09/05/22 07:00 Pulse Ox 99 09/05/22 07:00 FiO2 Intake & Output 09/04/22 09/05/22 09/05/22 18:59 06:59 18:59 Intake Total 400 700 100 Output Total 400 160 70 Balance 0 540 30 Weight 99 kg Intake: IV 700 100 Dextrose 5% in Water 1, 600 100 000 ml @ 100 mls/hr IV . [id number] BALA with Sodium Bicarb (1 Meq/ml) 150 ml Rx#:[id number] Piperacillin-Tazobactam 3 100 .375 gm In Sodium Chloride 0.9% 100 ml @ 25 mls/hr IVPB Q12H BALA Rx# :[id number] Hemodialysis 400 Output: Urine 160 70 Hemodialysis 400 Other: Voiding Method Indwelling Catheter - Exam GENERAL EXAM: More alert today, and answering simple questions. He is a malnourished, 47-year-old male, who is jaundiced HEAD: Normocephalic and atraumatic EYES: Right cornea is opaque, left pupil is reactive to light. Icteric sclera NOSE: Clear with pink turbinates. THROAT: No erythema or exudates. NECK: No masses, no JVD. CHEST: No chest wall deformity. LUNGS: Equal air entry with no crackles, wheeze, rhonchi or dullness. On room air. He is tachypneic. No accessory muscle use.. CVS: S1 and S2 normal with soft systolic ejection murmur, regular rhythm. No other extra heart sounds ABDOMEN: Abdomen is slightly less distended, there is hepatomegaly. Bowel sounds are hypoactive, no guarding or rigidity. FMS draining large amount of liquid brown stool. SPINE: No scoliosis or deformity SKIN: Jaundice CENTRAL NERVOUS SYSTEM: tone is normal in all 4 extremities. More alert and answering simple questions and following commands EXTREMITIES: There is mild nonpitting edema, clubbing, or cyanosis. Peripheral pulses are intact. - Labs CBC & Chem 7: 09/05/22 04:33 09/05/22 04:33 Labs: Abnormal Lab Results - Last 24 Hours (Table) 09/04/22 09/04/22 09/04/22 Range/Units 06:44 10:35 19:37 WBC (3.8-10.6) k/uL RBC (4.30-5.90) m/uL Hgb (13.0-17.5) gm/dL Hct (39.0-53.0) % MCV (80.0-100.0) fL MCH (25.0-35.0) pg Plt Count (150-450) k/uL Neutrophils # (Manual) (1.3-7.7) k/uL Lymphocytes # (Manual) 0.45 L (1.0-4.8) k/uL Macrocytosis Sodium 136 L (137-145) mmol/L Potassium (3.5-5.1) mmol/L Carbon Dioxide 19 L (22-30) mmol/L BUN 63 H (9-20) mg/dL Creatinine 6.78 H (0.66-1.25) mg/dL Glucose 121 H (74-99) mg/dL POC Glucose (mg/dL) (70-110) mg/dL Plasma Lactic Acid Tim 5.2 H* (0.7-2.0) mmol/L Calcium 7.0 L (8.4-10.2) mg/dL Magnesium (1.6-2.3) mg/dL 09/04/22 09/05/22 09/05/22 Range/Units 19:37 00:40 01:28 WBC (3.8-10.6) k/uL RBC (4.30-5.90) m/uL Hgb (13.0-17.5) gm/dL Hct (39.0-53.0) % MCV (80.0-100.0) fL MCH (25.0-35.0) pg Plt Count (150-450) k/uL Neutrophils # (Manual) (1.3-7.7) k/uL Lymphocytes # (Manual) (1.0-4.8) k/uL Macrocytosis Sodium (137-145) mmol/L Potassium (3.5-5.1) mmol/L Carbon Dioxide (22-30) mmol/L BUN (9-20) mg/dL Creatinine (0.66-1.25) mg/dL Glucose (74-99) mg/dL POC Glucose (mg/dL) 118 H (70-110) mg/dL Plasma Lactic Acid Tim 4.4 H* 3.3 H* (0.7-2.0) mmol/L Calcium (8.4-10.2) mg/dL Magnesium (1.6-2.3) mg/dL 09/05/22 09/05/22 09/05/22 Range/Units 04:33 04:33 04:33 WBC 11.2 H (3.8-10.6) k/uL RBC 2.80 L (4.30-5.90) m/uL Hgb 10.9 L (13.0-17.5) gm/dL Hct 30.4 L (39.0-53.0) % MCV 108.6 H (80.0-100.0) fL MCH 39.0 H (25.0-35.0) pg Plt Count 53 L (150-450) k/uL Neutrophils # (Manual) 9.70 H (1.3-7.7) k/uL Lymphocytes # (Manual) 0.90 L (1.0-4.8) k/uL Macrocytosis Marked A Sodium (137-145) mmol/L Potassium 3.4 L (3.5-5.1) mmol/L Carbon Dioxide (22-30) mmol/L BUN 70 H (9-20) mg/dL Creatinine 6.89 H (0.66-1.25) mg/dL Glucose 108 H (74-99) mg/dL POC Glucose (mg/dL) (70-110) mg/dL Plasma Lactic Acid Tim 2.8 H* (0.7-2.0) mmol/L Calcium 7.0 L (8.4-10.2) mg/dL Magnesium 2.7 H (1.6-2.3) mg/dL Microbiology - Last 24 Hours (Table) 09/03/22 11:50 Urine Culture - Final Urine,Voided Assessment and Plan Assessment: Hypotension with suspected sepsis. Blood cultures are still pending. Urine culture shows no growth at this point. Patient's chest x-ray from yesterday showed no focal consolidation or evidence pneumonia. Patient's abdomen is less distended today. Abdominal and pelvis CT on admission showed no evidence of acute abdomen. Patient is hypotensive requiring high-dose vasopressor support with norepinephrine and vasopressin. Altered mental status secondary to hepatic and uremic encephalopathy, improved currently awaiting repeat ammonia level. Patient was receiving lactulose. NG tube, he has removed this NG tube. Patient does have a fecal management system draining large amount of brown stool History of End-stage liver disease. Patient is established with his drawing kiln operator Dr. Medrano at [facility]. Apparently, patient was recently discharged from [facility] on August 19 for acute liver failure. He was sent home on lactulose and rifaximin. Ammonia level was 400 on arrival. Most recent ammonia level down to 62, awaiting repeat ammonia level this morning. Plan is still to transfer the patient to [facility] once bed available. Acute renal failure. Patient did receive hemodialysis yesterday for ultrafiltration. Patient's creatinine this morning is down to 6.89., Acute anion gap metabolic acidosis, improving Lactic acidosis was 3.3 down to 2.8 Dehydration Hypothermia, resolved Thrombocytopenia secondary to alcoholism Coagulopathy secondary to liver failure Macrocytic anemia Alcoholism, last drink was reportedly earlier this month History of polysubstance abuse History of hepatitis B HIV positive Schizophrenia Plan: Patient's medications, labs were reviewed Is currently requiring high doses of norepinephrine and vasopressin for blood pressure support Blood cultures are pending Lactic acid level trending down Continue antibiotics Ultrasound of the gallbladder was noted Will need reinsertion of NG tube Awaiting recheck of ammonia level Check cortisol and TSH Discontinue patient's bicarb infusion and transition the patient is normal saline. Hemodialysis per nephrology Patient is awaiting transfer to [facility], he will be monitored in the intensive care unit until then Patient's prognosis is poor, and he is a DO NOT RESUSCITATE and DO NOT INTUBATE. We will continue to follow I have personally seen and examined the patient, performed the documentation and the assessment and plan as written. Number of minutes spent on the visit: 20 This is a joint evaluation that was done along with the nurse practitioner. The patient is critically ill. The patient has liver failure in a patient presented to us with hypotension, acute kidney injury requiring hemodialysis, altered mentation and possibly a component of septic shock. The patient is morning seems to be more alert compared to yesterday. Ammonia level dropped. He is still on norepinephrine at 0.2 microvascular kilogram per minute and vasopressin physiologic dose. He remains on IV Zosyn. He has stooled adequately and he ripped out his fecal management system. The patient's is making good urine output at this point in time and nephrology opted to hold on dialysis. Serum cortisol was adequate. Lactic acid levels have been down trending. We'll continue same management. Continue normal saline at rate of 100 mL an hour. Ultimate plan is transfer this patient to [facility]. There is a critical care evaluation, more than 30 minutes. Time with Patient: Greater than 30
[2022-09-05 08:50] LABS: Lactic Acid, Venous 1.9 mmol/L (0.7-2.0)
[2022-09-05] MEDS: RIFAXIMIN 550 MG TABLET PO SCH ×2 (11:35→20:06)
[2022-09-05] MEDS ORDERED: HYDROmorphone 0.5 MG/0.5 ML SYRINGE IVP PRN (11:39)
[2022-09-05] MEDS: POTASSIUM CHLORIDE 20 MEQ in WATER FOR INJECTION 1 100ML.BAG IVPB SCH ×2 (11:40→13:40)
--- NOTE | 2022-09-05 11:40 | P.PN ---
Subjective Progress Note Date: 09/05/22 Principal diagnosis: Hepatic encephalopathy, liver failure This a 47-year-old male with a past medical history of alcohol abuse, methamphetamine abuse, heroin abuse, hepatitis B, HIV, schizophrenia with liver failure who presented to the emergency department. HPI obtained from chart. Patient lives with mother and patient was very weak and his mother coming Up so she called EMS. Apparently patient was recently admitted and discharged from [facility] on 08/19/2022 for acute liver failure. He follows with water/wastewater engineer Dr. Medrano. According to the chart the patient's mother states he has not had any alcohol since his discharge from [facility]. Patient is lying in bed, jaundice, mostly nonresponsive. Patient was noted to have a pneumonia level of 400 on admission. He was started on lactulose and Xifaxan. He's had told a bowel movement since admission. Recommendation was for patient to be transferred to [facility], he has been accepted however waiting for an ICU bed. Patient is hypothermic on admission, bear hugger applied. Temperature has come up. Patient in acute kidney injury at admission, vascular surgery was consulted and a temporary HD catheter was placed. Labs WBC 5.6 hemoglobin 10 hematocrit 29 platelet count 72,000 INR 3.0 sodium 136 potassium 3.7 BUN 65 creatinine 6.9. Lactic acid 4.8 total bilirubin 17 AST 54 ALT 29 alkaline phosphatase 110 ammonia 62 lipase 382 The abdomen and pelvis without contrast reports ascites, fluid appears to extend into right inguinal hernia and into the right hemiscrotum. Splenomegaly. Bilateral femoral head changes suggestive for avascular necrosis. Some compression fractures may be present. Findings are similar to comparison study. Abdominal ultrasound reports ascites Gallbladder ultrasound reports cholelithiasis, mild ascites, lobular appearance to liver 09/05/2022: Patient remains in ICU. He is a little more alert today and opening his eyes and responding. His mom is at the bedside. He is currently on pressors. He is now having more bowel movements, has a fecal management system in place. Patient has been afebrile. WBC 11.2 hemoglobin 10.9 platelet count 53,000 sodium 138 potassium 3.4 BUN 70 and 6.8 ammonia 27 Objective - Vital Signs Vital signs: Vital Signs Temp 97.3 F L 09/05/22 04:00 Pulse 79 09/05/22 07:00 Resp 15 09/05/22 07:00 BP 103/58 09/05/22 07:00 Pulse Ox 99 09/05/22 07:00 FiO2 Intake & Output 09/04/22 09/05/22 09/05/22 18:59 06:59 18:59 Intake Total 400 700 100 Output Total 400 160 70 Balance 0 540 30 Weight 99 kg Intake: IV 700 100 Dextrose 5% in Water 1, 600 100 000 ml @ 100 mls/hr IV . [id number] BALA with Sodium Bicarb (1 Meq/ml) 150 ml Rx#:[id number] Piperacillin-Tazobactam 3 100 .375 gm In Sodium Chloride 0.9% 100 ml @ 25 mls/hr IVPB Q12H BALA Rx# :[id number] Hemodialysis 400 Output: Urine 160 70 Hemodialysis 400 Other: Voiding Method Indwelling Catheter - Exam General appearance: The patient is obtunded but more alert. HET: Head is normocephalic and atraumatic. Conjunctiva pink. Sclera icteric. Neck: Supple without lymphadenopathy. Abdomen: Soft, nontender, nondistended with bowel sounds. No guarding or rigidity. Extremities: Normal skin color and turgor. Pedal edema. Skin: No rashes, jaundice Neurological: Patient obtunded but more alert today.. - Labs CBC & Chem 7: 09/05/22 04:33 09/05/22 04:33 Labs: Abnormal Lab Results - Last 24 Hours (Table) 09/04/22 09/04/22 09/04/22 Range/Units 06:44 10:35 19:37 WBC (3.8-10.6) k/uL RBC (4.30-5.90) m/uL Hgb (13.0-17.5) gm/dL Hct (39.0-53.0) % MCV (80.0-100.0) fL MCH (25.0-35.0) pg Plt Count (150-450) k/uL Neutrophils # (Manual) (1.3-7.7) k/uL Lymphocytes # (Manual) 0.45 L (1.0-4.8) k/uL Macrocytosis Sodium 136 L (137-145) mmol/L Potassium (3.5-5.1) mmol/L Carbon Dioxide 19 L (22-30) mmol/L BUN 63 H (9-20) mg/dL Creatinine 6.78 H (0.66-1.25) mg/dL Glucose 121 H (74-99) mg/dL POC Glucose (mg/dL) (70-110) mg/dL Plasma Lactic Acid Tim 5.2 H* (0.7-2.0) mmol/L Calcium 7.0 L (8.4-10.2) mg/dL Magnesium (1.6-2.3) mg/dL 09/04/22 09/05/22 09/05/22 Range/Units 19:37 00:40 01:28 WBC (3.8-10.6) k/uL RBC (4.30-5.90) m/uL Hgb (13.0-17.5) gm/dL Hct (39.0-53.0) % MCV (80.0-100.0) fL MCH (25.0-35.0) pg Plt Count (150-450) k/uL Neutrophils # (Manual) (1.3-7.7) k/uL Lymphocytes # (Manual) (1.0-4.8) k/uL Macrocytosis Sodium (137-145) mmol/L Potassium (3.5-5.1) mmol/L Carbon Dioxide (22-30) mmol/L BUN (9-20) mg/dL Creatinine (0.66-1.25) mg/dL Glucose (74-99) mg/dL POC Glucose (mg/dL) 118 H (70-110) mg/dL Plasma Lactic Acid Tim 4.4 H* 3.3 H* (0.7-2.0) mmol/L Calcium (8.4-10.2) mg/dL Magnesium (1.6-2.3) mg/dL 09/05/22 09/05/22 09/05/22 Range/Units 04:33 04:33 04:33 WBC 11.2 H (3.8-10.6) k/uL RBC 2.80 L (4.30-5.90) m/uL Hgb 10.9 L (13.0-17.5) gm/dL Hct 30.4 L (39.0-53.0) % MCV 108.6 H (80.0-100.0) fL MCH 39.0 H (25.0-35.0) pg Plt Count 53 L (150-450) k/uL Neutrophils # (Manual) 9.70 H (1.3-7.7) k/uL Lymphocytes # (Manual) 0.90 L (1.0-4.8) k/uL Macrocytosis Marked A Sodium (137-145) mmol/L Potassium 3.4 L (3.5-5.1) mmol/L Carbon Dioxide (22-30) mmol/L BUN 70 H (9-20) mg/dL Creatinine 6.89 H (0.66-1.25) mg/dL Glucose 108 H (74-99) mg/dL POC Glucose (mg/dL) (70-110) mg/dL Plasma Lactic Acid Tim 2.8 H* (0.7-2.0) mmol/L Calcium 7.0 L (8.4-10.2) mg/dL Magnesium 2.7 H (1.6-2.3) mg/dL Microbiology - Last 24 Hours (Table) 09/03/22 11:50 Urine Culture - Final Urine,Voided Assessment and Plan (1) Hepatic encephalopathy Narrative/Plan: 7-year-old with known history of alcohol abuse, methamphetamine and heroin abuse, hepatitis B and HIV who was recently hospitalized with acute liver failure and discharge from [facility] return back to the hospital with hepatic encephalopathy. Patient had the ammonia level of 400 on admission, acute renal failure, hypothermia, hypotension and nonresponsive for most part. Patient was started on lactulose per rectum and now has been switched to NG tube. Labs consistent with alcoholic hepatitis, he was started on Zosyn. Discussed with the nurse to give lactulose 30 g per NG tube every hour 3 doses until patient has bowel movement then continue as ordered. Continue Xifaxan. Continue symptomatic care. Recommend transfer to tertiary center, patient established with Dr. Harrell [facility]. Current Visit: Yes Status: Acute Code(s): K76.82 - HEPATIC ENCEPHALOPATHY SNOMED Code(s): 87014543 (2) Ascites Narrative/Plan: Need to consider possible sepsis from spontaneous bacterial peritonitis, continue IV antibiotics Current Visit: Yes Status: Acute Code(s): R18.8 - OTHER ASCITES SNOMED Code(s): 478865850 (3) Hypothermia Current Visit: Yes Status: Acute Code(s): T68.XXXA - HYPOTHERMIA, INITIAL ENCOUNTER SNOMED Code(s): 709173633 (4) Coagulopathy Current Visit: Yes Status: Acute Code(s): D68.9 - COAGULATION DEFECT, UNSPECIFIED SNOMED Code(s): 45694436 (5) LES (acute kidney injury) Current Visit: Yes Status: Acute Code(s): N17.9 - ACUTE KIDNEY FAILURE, UNSPECIFIED SNOMED Code(s): 61788490 (6) Liver failure Current Visit: Yes Status: Acute Code(s): K72.90 - HEPATIC FAILURE, UNSPECIFIED WITHOUT COMA SNOMED Code(s): 05966444 Plan: 1. Continue symptomatic and supportive care 2. Continue lactulose 30 g 3 times a day, Xifaxan 550 mg twice a day 3. Continue antibiotics 4. Daily CBC, CMP, INR, ammonia 5. Recommend transfer to [facility] for acute liver failure, hepatic encephalopathy, further management with water/wastewater engineer as there will be no GI services available in the hospital starting tomorrow through next week Thank you for this consultation, we will continue to follow. Dr. Cari Parnell I agree with the dictator's note, documented as a scribe by Leia Carrington.
[2022-09-05] MEDS: THIAMINE 100 MG/ML 2 ML VIAL IVP SCH (11:41)
--- NOTE | 2022-09-05 11:49 | P.PN ---
Subjective Patient is seen in follow-up for acute kidney injury. Last hemodialysis 09/04/2022. Currently on Levophed and vasopressin. Currently on bicarb drip. Acidosis improved. Blood pressure stable. Urine output also improved the last few hours. Family present at bedside. Vital signs are stable. On vasopressor support. General: Somewhat restless. HEENT: Head exam is unremarkable. LUNGS: No audible rhonchi or wheezes. HEART: Rate and Rhythm are regular. ABDOMEN: Soft, mild distention noted. EXTREMITITES: No edema. Objective - Vital Signs Vital signs: Vital Signs Temp 97.3 F L 09/05/22 04:00 Pulse 79 09/05/22 07:00 Resp 15 09/05/22 07:00 BP 103/58 09/05/22 07:00 Pulse Ox 99 09/05/22 07:00 FiO2 Intake & Output 09/04/22 09/05/22 09/05/22 18:59 06:59 18:59 Intake Total 400 700 223.165 Output Total 400 160 70 Balance 0 540 153.165 Weight 99 kg Intake: IV 700 100 Dextrose 5% in Water 1, 600 100 000 ml @ 100 mls/hr IV . [id number] BALA with Sodium Bicarb (1 Meq/ml) 150 ml Rx#:[id number] Piperacillin-Tazobactam 3 100 .375 gm In Sodium Chloride 0.9% 100 ml @ 25 mls/hr IVPB Q12H [facility]A Rx# :[id number] Intake, IV Titration 123.165 Amount Vasopressin 60 unit In 123.165 Sodium Chloride 0.9% 150 ml @ 0.03 UNITS/MIN 4.59 mls/hr IV .Q24H [facility]A Rx#: [id number] Hemodialysis 400 Output: Urine 160 70 Hemodialysis 400 Other: Voiding Method Indwelling Catheter - Labs CBC & Chem 7: 09/05/22 04:33 09/05/22 04:33 Labs: Abnormal Lab Results - Last 24 Hours (Table) 09/04/22 09/04/22 09/05/22 Range/Units 19:37 19:37 00:40 WBC (3.8-10.6) k/uL RBC (4.30-5.90) m/uL Hgb (13.0-17.5) gm/dL Hct (39.0-53.0) % MCV (80.0-100.0) fL MCH (25.0-35.0) pg Plt Count (150-450) k/uL Neutrophils # (Manual) (1.3-7.7) k/uL Lymphocytes # (Manual) (1.0-4.8) k/uL Macrocytosis Sodium 136 L (137-145) mmol/L Potassium (3.5-5.1) mmol/L Carbon Dioxide 19 L (22-30) mmol/L BUN 63 H (9-20) mg/dL Creatinine 6.78 H (0.66-1.25) mg/dL Glucose 121 H (74-99) mg/dL POC Glucose (mg/dL) (70-110) mg/dL Plasma Lactic Acid Tim 4.4 H* 3.3 H* (0.7-2.0) mmol/L Calcium 7.0 L (8.4-10.2) mg/dL Magnesium (1.6-2.3) mg/dL 09/05/22 09/05/22 09/05/22 Range/Units 01:28 04:33 04:33 WBC 11.2 H (3.8-10.6) k/uL RBC 2.80 L (4.30-5.90) m/uL Hgb 10.9 L (13.0-17.5) gm/dL Hct 30.4 L (39.0-53.0) % MCV 108.6 H (80.0-100.0) fL MCH 39.0 H (25.0-35.0) pg Plt Count 53 L (150-450) k/uL Neutrophils # (Manual) 9.70 H (1.3-7.7) k/uL Lymphocytes # (Manual) 0.90 L (1.0-4.8) k/uL Macrocytosis Marked A Sodium (137-145) mmol/L Potassium 3.4 L (3.5-5.1) mmol/L Carbon Dioxide (22-30) mmol/L BUN 70 H (9-20) mg/dL Creatinine 6.89 H (0.66-1.25) mg/dL Glucose 108 H (74-99) mg/dL POC Glucose (mg/dL) 118 H (70-110) mg/dL Plasma Lactic Acid Tim (0.7-2.0) mmol/L Calcium 7.0 L (8.4-10.2) mg/dL Magnesium 2.7 H (1.6-2.3) mg/dL 09/05/22 Range/Units 04:33 WBC (3.8-10.6) k/uL RBC (4.30-5.90) m/uL Hgb (13.0-17.5) gm/dL Hct (39.0-53.0) % MCV (80.0-100.0) fL MCH (25.0-35.0) pg Plt Count (150-450) k/uL Neutrophils # (Manual) (1.3-7.7) k/uL Lymphocytes # (Manual) (1.0-4.8) k/uL Macrocytosis Sodium (137-145) mmol/L Potassium (3.5-5.1) mmol/L Carbon Dioxide (22-30) mmol/L BUN (9-20) mg/dL Creatinine (0.66-1.25) mg/dL Glucose (74-99) mg/dL POC Glucose (mg/dL) (70-110) mg/dL Plasma Lactic Acid Tim 2.8 H* (0.7-2.0) mmol/L Calcium (8.4-10.2) mg/dL Magnesium (1.6-2.3) mg/dL Microbiology - Last 24 Hours (Table) 09/03/22 11:50 Urine Culture - Final Urine,Voided Assessment and Plan Plan: Assessment: 1. Acute kidney injury secondary to ATN secondary to hypotension. Creatinine 8.88 on admission. Baseline creatinine 0.6 as of 08/15/2022. Urine output improving. Started on renal replacement therapy 09/03/2022 due to severe renal failure/hyperammonemia, acidosis, oliguria. No hydronephrosis noted on kidney ultrasound. 2. Alcohol liver disease. Patient follows at [facility]. 3. Metabolic acidosis secondary to acute kidney injury. Improved with bicarb drip. 4. Hepatic encephalopathy. Ammonia level improved. 5. Ascites. May need paracentesis this admission. 6. Hypokalemia from intracellular shifting from IV bicarb. Plan: Hold off on dialysis today. Change bicarb drip to normal saline. Maintain midodrine. Replace potassium. Wean FiO2 and vasopressors as able. Continue to monitor renal function and urine output. Prognosis guarded. Awaits transfer to [facility].
[2022-09-05 18:42] LABS: Magnesium 2.6 mg/dL (1.6-2.3); Potassium 3.7 mmol/L (3.5-5.1)
[2022-09-05 19:14] LABS: HCT 28.2 % (39.0-53.0); HGB 10.2 gm/dL (13.0-17.5); MCH 38.9 pg (25.0-35.0); Macrocytosis Moderate; Mean Platelet Volume 10.3; RBC 2.61 m/uL (4.30-5.90); RDW 14.5 % (11.5-15.5)
[2022-09-05] MEDS ORDERED: POTASSIUM CHLORIDE 20 MEQ in WATER FOR INJECTION 1 100ML.BAG IVPB ONE (19:17)
[2022-09-05 19:18] LABS: Platelet Count 42 k/uL (150-450)
--- NOTE | 2022-09-05 19:28 | P.PN ---
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 Patient currently obtunded, information being obtained from chart, staff and family at the bedside. Family reports patient has not consumed alcohol since his discharge ,exhibiting slow decline since his discharge from [facility] on 08/19/2022 for acute liver failure. Family states he started having excessive stooling, increased abdomen distention, weakness worsened, and EMS called for transport. Ammonia level on admission 400, started on rectal lactulose and Xifaxan. No bowel movement since admission. BUN 84, creatinine 8.88,temporary HD catheter placed for emergent dialysis.Maintained on pressor support with Levophed, vasopressin.WBC 5.6 hemoglobin 10.3, platelets 72 INR 3.0. Sodium 136, potassium 3.7, acidotic [id number], increased to 16, BUN 65 creatinine 6.95. Lactic acid 4.8, increased to 5.2, total bilirubin 17 AST 54 ALT 29 alkaline phosphatase 110 ammonia 62 lipase 1209-currently decreased to 382.Required Bear hugger,temperature improving. CT of abdomen and pelvis reporting ascites, fluid appears to extend into right inguinal hernia and into the right hemiscrotum,splenomegaly, bilateral femoral head changes suggestive for avascular necrosis. Some compression fractures may be present.Findings are similar to comparison study. Chest x-ray reported no acute process.Abdominal ultrasound reported ascites. Gallbladder ultrasound reports cholelithiasis, mild ascites, lobular appearance to liver. 09/05/2022 slightly more alert today. Maintained on lactulose with significant decrease in ammonia, 27. Continues on Levophed and vasopressin. FMS in place with stool. Afebrile, WBC within normal limits, lactic acid 1.9. hemoglobin 10.2, platelets 42, sodium 138, potassium 3.7. Currently on bicarb drip with bicarbonate WNL,23. Last hemodialysis yesterday, BUN 70, creatinine 6.89. B lood sugars stable. Objective - Vital Signs Vital signs: Vital Signs Temp 97.3 F L 09/05/22 04:00 Pulse 79 09/05/22 07:00 Resp 15 09/05/22 07:00 BP 103/58 09/05/22 07:00 Pulse Ox 99 09/05/22 07:00 FiO2 Intake & Output 09/04/22 09/05/22 09/05/22 18:59 06:59 18:59 Intake Total 400 700 223.165 Output Total 400 160 70 Balance 0 540 153.165 Weight 99 kg Intake: IV 700 100 Dextrose 5% in Water 1, 600 100 000 ml @ 100 mls/hr IV . [id number] BALA with Sodium Bicarb (1 Meq/ml) 150 ml Rx#:[id number] Piperacillin-Tazobactam 3 100 .375 gm In Sodium Chloride 0.9% 100 ml @ 25 mls/hr IVPB Q12H [facility] Rx# :[id number] Intake, IV Titration 123.165 Amount Vasopressin 60 unit In 123.165 Sodium Chloride 0.9% 150 ml @ 0.03 UNITS/MIN 4.59 mls/hr IV .Q24H [facility]A Rx#: [id number] Hemodialysis 400 Output: Urine 160 70 Hemodialysis 400 Other: Voiding Method Indwelling Catheter - Exam General: The patient is obtunded, slightly more alert, jaundiced. HEENT: Atraumatic, Normocephalic, Sclera icterus. Neck supple, no JVD Cardiovascular: Normal S1-S2, regular rate and rhythm, no murmurs. Respiratory: Lungs clear to auscultation bilaterally with no wheezes rhonchi or rales. Gastrointestinal: Abdomen is soft, distended, positive ascites, no guarding. EXTR: Positive edema Neurological: Unable to assess, obtunded-mildly improved Skin: Skin is warm and dry and no rashes noted. - Labs CBC & Chem 7: 09/05/22 04:33 09/05/22 18:20 Labs: Abnormal Lab Results - Last 24 Hours (Table) 09/04/22 09/04/22 09/05/22 Range/Units 19:37 19:37 00:40 WBC (3.8-10.6) k/uL RBC (4.30-5.90) m/uL Hgb (13.0-17.5) gm/dL Hct (39.0-53.0) % MCV (80.0-100.0) fL MCH (25.0-35.0) pg Plt Count (150-450) k/uL Neutrophils # (Manual) (1.3-7.7) k/uL Lymphocytes # (Manual) (1.0-4.8) k/uL Macrocytosis Sodium 136 L (137-145) mmol/L Potassium (3.5-5.1) mmol/L Carbon Dioxide 19 L (22-30) mmol/L BUN 63 H (9-20) mg/dL Creatinine 6.78 H (0.66-1.25) mg/dL Glucose 121 H (74-99) mg/dL POC Glucose (mg/dL) (70-110) mg/dL Plasma Lactic Acid Tim 4.4 H* 3.3 H* (0.7-2.0) mmol/L Calcium 7.0 L (8.4-10.2) mg/dL Magnesium (1.6-2.3) mg/dL 09/05/22 09/05/22 09/05/22 Range/Units 01:28 04:33 04:33 WBC 11.2 H (3.8-10.6) k/uL RBC 2.80 L (4.30-5.90) m/uL Hgb 10.9 L (13.0-17.5) gm/dL Hct 30.4 L (39.0-53.0) % MCV 108.6 H (80.0-100.0) fL MCH 39.0 H (25.0-35.0) pg Plt Count 53 L (150-450) k/uL Neutrophils # (Manual) 9.70 H (1.3-7.7) k/uL Lymphocytes # (Manual) 0.90 L (1.0-4.8) k/uL Macrocytosis Marked A Sodium (137-145) mmol/L Potassium 3.4 L (3.5-5.1) mmol/L Carbon Dioxide (22-30) mmol/L BUN 70 H (9-20) mg/dL Creatinine 6.89 H (0.66-1.25) mg/dL Glucose 108 H (74-99) mg/dL POC Glucose (mg/dL) 118 H (70-110) mg/dL Plasma Lactic Acid Tim (0.7-2.0) mmol/L Calcium 7.0 L (8.4-10.2) mg/dL Magnesium 2.7 H (1.6-2.3) mg/dL 09/05/22 Range/Units 04:33 WBC (3.8-10.6) k/uL RBC (4.30-5.90) m/uL Hgb (13.0-17.5) gm/dL Hct (39.0-53.0) % MCV (80.0-100.0) fL MCH (25.0-35.0) pg Plt Count (150-450) k/uL Neutrophils # (Manual) (1.3-7.7) k/uL Lymphocytes # (Manual) (1.0-4.8) k/uL Macrocytosis Sodium (137-145) mmol/L Potassium (3.5-5.1) mmol/L Carbon Dioxide (22-30) mmol/L BUN (9-20) mg/dL Creatinine (0.66-1.25) mg/dL Glucose (74-99) mg/dL POC Glucose (mg/dL) (70-110) mg/dL Plasma Lactic Acid Tim 2.8 H* (0.7-2.0) mmol/L Calcium (8.4-10.2) mg/dL Magnesium (1.6-2.3) mg/dL Microbiology - Last 24 Hours (Table) 09/03/22 11:50 Urine Culture - Final Urine,Voided Assessment and Plan Assessment: Hepatic encephalopathy in a patient recently discharged from [facility] secondary to acute liver failure. Ammonia level 400 on admission. Acute renal failure, ATN secondary to hypotension. Emergent dialysis initiated. Metabolic acidosis secondary to the above, on bicarb drip Hypothermia Hypotension Alcoholic hepatitis Ascites Chronic Liver failure, worsening, established at the Hepatology clinic at [facility],Dr. Medrano Coagulopathy secondary to liver failure Alcohol abuse HIV Disease Bipolar disorder Nicotine dependence Plan: Continue on current medication regime ,monitoring and symptomatic treatment. Hemodialysis as per nephrology. Maintain lactulose, Xifaxan, Zosyn. Close monitoring of ammonia,coags.,renal function. Prognosis guarded, given multiple complex medical issues. Transfer to [facility] initiated secondary to acute liver failure, hepatic encephalopathy for further treatment with personnel technician, which we do not have at this site, in addition to we will not have GI services available at this site starting tomorrow 09/06/22-PCP notified. Family at bedside, updated. The impression and plan of care has been dictated as directed. : I performed a history and examination of this patient, discussed the same with the dictator. I agree with the dictator's note ,documented as a scribe. Any additional findings or plans will be noted.
[2022-09-05] MEDS: NOREPINEPHRINE 32 MG in SODIUM CHLORIDE 0.9% 218 ML IV SCH (22:21)
[2022-09-06] MEDS: PIPERACILLIN-TAZOBACTAM 3.375 GM in SODIUM CHLORIDE 0.9% 100 ML IVPB SCH (04:16)
[2022-09-06] MEDS: SODIUM CHLORIDE 0.9% 1,000 ML IV SCH (05:00)
[2022-09-06 05:30] LABS: HCT 28.5 % (39.0-53.0); MCH 38.3 pg (25.0-35.0); MCHC 34.9 g/dL (31.0-37.0); MCV 109.8 fL (80.0-100.0); Macrocytosis Marked; Mean Platelet Volume 10.4; RDW 14.3 % (11.5-15.5); WBC 6.2 k/uL (3.8-10.6)
[2022-09-06 05:43] LABS: INR 3.1 (<1.2); Prothrombin Time 30.7 sec (9.0-12.0)
[2022-09-06 05:54] LABS: Potassium 3.6 mmol/L (3.5-5.1); Total Protein 6.1 g/dL (6.3-8.2)
[2022-09-06 05:56] LABS: Total Bilirubin 17.7 mg/dL (0.2-1.3)
[2022-09-06 06:01] LABS: Platelet Count 38 k/uL (150-450)
[2022-09-06] MEDS: MIDODRINE 5 MG TAB PO SCH ×3 (06:31→11:42)
[2022-09-06 06:46] LABS: Band Neutrophils % 1 %; Eosinophils # (M) 0.25 k/uL (0-0.7); Lymphocytes # (M) 0.56 k/uL (1.0-4.8); Monocytes # (M) 0.37 k/uL (0-1.0); Neutrophils % (M) 80 %; Nucleated Red Blood Cells 0 /100 WBC (0-0); Total Cells Counted 100
--- NOTE | 2022-09-06 08:05 | P.PN ---
Subjective Progress Note Date: 09/06/22 Principal diagnosis: Hepatic encephalopathy, liver failure This a 47-year-old male with a past medical history of alcohol abuse, methamphetamine abuse, heroin abuse, hepatitis B, HIV, schizophrenia with liver failure who presented to the emergency department. HPI obtained from chart. Patient lives with mother and patient was very weak and his mother coming Up so she called EMS. Apparently patient was recently admitted and discharged from [facility] on 08/19/2022 for acute liver failure. He follows with otolaryngology teacher Dr. Medrano. According to the chart the patient's mother states he has not had any alcohol since his discharge from [facility]. Patient is lying in bed, jaundice, mostly nonresponsive. Patient was noted to have a pneumonia level of 400 on admission. He was started on lactulose and Xifaxan. He's had told a bowel movement since admission. Recommendation was for patient to be transferred to [facility], he has been accepted however waiting for an ICU bed. Patient is hypothermic on admission, bear hugger applied. Temperature has come up. Patient in acute kidney injury at admission, vascular surgery was consulted and a temporary HD catheter was placed. Labs WBC 5.6 hemoglobin 10 hematocrit 29 platelet count 72,000 INR 3.0 sodium 136 potassium 3.7 BUN 65 creatinine 6.9. Lactic acid 4.8 total bilirubin 17 AST 54 ALT 29 alkaline phosphatase 110 ammonia 62 lipase 382 The abdomen and pelvis without contrast reports ascites, fluid appears to extend into right inguinal hernia and into the right hemiscrotum. Splenomegaly. Bilateral femoral head changes suggestive for avascular necrosis. Some compression fractures may be present. Findings are similar to comparison study. Abdominal ultrasound reports ascites Gallbladder ultrasound reports cholelithiasis, mild ascites, lobular appearance to liver 09/05/2022: Patient remains in ICU. He is a little more alert today and opening his eyes and responding. His mom is at the bedside. He is currently on pressors. He is now having more bowel movements, has a fecal management system in place. Patient has been afebrile. WBC 11.2 hemoglobin 10.9 platelet count 53,000 sodium 138 potassium 3.4 BUN 70 and 6.8 ammonia 27 On 09/06/2022: Patient remains in the ICU. He is more alert and communicating more today. He had a critical bili of 17.7 this morning. He continues to have adequate bowel movements. Patient received dialysis 09/04/2022, he is now havi ng improved urine output and has indwelling Pritchett catheter. Nursing reports that he did have 1 bloody nose, but he does have a history of getting bloody nose. His INR was 3.0 today. No bloody bowel movements. He denies any abdominal pain, nausea vomiting. WBC 6.2 hemoglobin 10 hematocrit 28 platelet count 38,000 INR 3.1 sodium 142 potassium 3.6 BUN 80 creatinine 4.4 Objective - Vital Signs Vital signs: Vital Signs Temp 97.6 F 09/06/22 04:00 Pulse 66 09/06/22 06:15 Resp 10 L 09/06/22 06:15 BP 115/67 09/06/22 06:15 Pulse Ox 98 09/06/22 06:15 FiO2 Intake & Output 09/05/22 09/05/22 09/06/22 06:59 18:59 06:59 Intake Total 700 4134.737 3288.702 Output Total 160 2470 830 Balance 540 -540.894 475.702 Weight 99 kg Intake: IV 700 1680 1300 Dextrose 5% in Water 1, 600 200 000 ml @ 100 mls/hr IV . [id number] BALA with Sodium Bicarb (1 Meq/ml) 150 ml Rx#:[id number] Invasive Line 2 90 Invasive Line 3 30 Piperacillin-Tazobactam 3 100 160 .375 gm In Sodium Chloride 0.9% 100 ml @ 25 mls/hr IVPB Q12H BALA Rx# :[id number] Potassium Chloride 20 meq 100 In Water For Injection 1 100ml.bag @ 50 mls/hr IVPB ONCE ONE Rx#: [id number] Potassium Chloride 20 meq 200 In Water For Injection 1 100ml.bag @ 50 mls/hr IVPB Q2H BALA Rx#: [id number] Sodium Chloride 0.9% 1, 1000 1200 000 ml @ 100 mls/hr IV . Q10H [facility] Rx#:[id number] Intake, IV Titration 249.106 5.702 Amount Norepinephrine 32 mg In 92.281 5.702 Sodium Chloride 0.9% 218 ml @ 0.03 MCG/KG/MIN 1. 276 mls/hr IV .Q24H BALA Rx#:[id number] Vasopressin 60 unit In 156.825 Sodium Chloride 0.9% 150 ml @ 0.03 UNITS/MIN 4.59 mls/hr IV .Q24H [facility] Rx#: [id number] Output: Urine 160 1070 830 Stool 1400 Other: Voiding Method Indwelling Catheter Indwelling Catheter Indwelling Catheter - Exam General appearance: The patient is awake and alert, still with some confusion. HET: Head is normocephalic and atraumatic. Conjunctiva pink. Sclera deeply icteric. Neck: Supple without lymphadenopathy. Abdomen: Soft, nontender, nondistended with bowel sounds. No guarding or rigidity. Extremities: Normal skin color and turgor. No pedal edema. Skin: No rashes, jaundice. Neurological: Patient alert today, oriented to self. - Labs CBC & Chem 7: 09/06/22 05:12 09/06/22 05:12 Labs: Abnormal Lab Results - Last 24 Hours (Table) 09/05/22 09/05/22 09/05/22 Range/Units 04:33 18:20 18:20 WBC 11.2 H (3.8-10.6) k/uL RBC 2.80 L 2.61 L (4.30-5.90) m/uL Hgb 10.9 L 10.2 L (13.0-17.5) gm/dL Hct 30.4 L 28.2 L (39.0-53.0) % MCV 108.6 H 108.0 H (80.0-100.0) fL MCH 39.0 H 38.9 H (25.0-35.0) pg Plt Count 53 L 42 L (150-450) k/uL Neutrophils # (Manual) 9.70 H (1.3-7.7) k/uL Lymphocytes # (Manual) 0.90 L (1.0-4.8) k/uL Macrocytosis Marked A PT (9.0-12.0) sec INR (<1.2) Chloride (98-107) mmol/L BUN (9-20) mg/dL Creatinine (0.66-1.25) mg/dL Calcium (8.4-10.2) mg/dL Magnesium 2.6 H (1.6-2.3) mg/dL Total Bilirubin (0.2-1.3) mg/dL AST (17-59) U/L ALT (4-49) U/L Total Protein (6.3-8.2) g/dL Albumin (3.5-5.0) g/dL 09/06/22 09/06/22 09/06/22 Range/Units 05:12 05:12 05:12 WBC (3.8-10.6) k/uL RBC 2.60 L (4.30-5.90) m/uL Hgb 10.0 L (13.0-17.5) gm/dL Hct 28.5 L (39.0-53.0) % MCV 109.8 H (80.0-100.0) fL MCH 38.3 H (25.0-35.0) pg Plt Count (150-450) k/uL Neutrophils # (Manual) (1.3-7.7) k/uL Lymphocytes # (Manual) (1.0-4.8) k/uL Macrocytosis Marked A PT 30.7 H (9.0-12.0) sec INR 3.1 H (<1.2) Chloride 109 H (98-107) mmol/L BUN 80 H (9-20) mg/dL Creatinine 4.41 H (0.66-1.25) mg/dL Calcium 7.0 L (8.4-10.2) mg/dL Magnesium (1.6-2.3) mg/dL Total Bilirubin 17.7 H* (0.2-1.3) mg/dL AST 188 H (17-59) U/L ALT 59 H (4-49) U/L Total Protein 6.1 L (6.3-8.2) g/dL Albumin 2.0 L (3.5-5.0) g/dL Assessment and Plan (1) Hepatic encephalopathy Narrative/Plan: 47-year-old with known history of alcohol abuse, methamphetamine and heroin abuse, hepatitis B and HIV who was recently hospitalized with acute liver failure and discharge from [facility] return back to the hospital with hepatic encephalopathy. Patient had the ammonia level of 400 on admission, acute renal failure, hypothermia, hypotension and nonresponsive for most part. Patient was started on lactulose per rectum and now has been switched to NG tube. Labs consistent with alcoholic hepatitis, he was started on Zosyn. Discussed with the nurse to give lactulose 30 g per NG tube every hour 3 doses until patient has bowel movement then continue as ordered. Continue Xifaxan. Continue symptomatic care. Recommend transfer to tertiary center, patient established with Dr. Medrano [facility]. Patient has been accepted to [facility] ICU. The pending transfer today. Patient is a little more alert today. He did have a critical bili of 17.7. Ammonia levels have improved, he remains on lactulose 30 g 3 times a day and Xifaxan 550 mg twice a day with good stool output. Current Visit: Yes Status: Acute Code(s): K76.82 - HEPATIC ENCEPHALOPATHY SNOMED Code(s): 81528821 (2) Ascites Narrative/Plan: Need to consider possible sepsis from spontaneous bacterial peritonitis, continue IV antibiotics Current Visit: Yes Status: Acute Code(s): R18.8 - OTHER ASCITES SNOMED Code(s): 573232225 (3) Hypothermia Current Visit: Yes Status: Acute Code(s): T68.XXXA - HYPOTHERMIA, INITIAL ENCOUNTER SNOMED Code(s): 787164627 (4) Coagulopathy Current Visit: Yes Status: Acute Code(s): D68.9 - COAGULATION DEFECT, UNSPECIFIED SNOMED Code(s): 74902938 (5) LES (acute kidney injury) Current Visit: Yes Status: Acute Code(s): N17.9 - ACUTE KIDNEY FAILURE, UNSPECIFIED SNOMED Code(s): 73843493 (6) Liver failure Current Visit: Yes Status: Acute Code(s): K72.90 - HEPATIC FAILURE, UNSPECIFIED WITHOUT COMA SNOMED Code(s): 43497067 Plan: 1. Continue symptomatic and supportive care 2. Continue lactulose 30 g 3 times a day, Xifaxan 550 mg twice a day 3. Continue antibiotics 4. Daily CBC, CMP, INR, ammonia 5. Recommend transfer to [facility] for acute liver failure, hepatic encephalopathy, further management with otolaryngology teacher as there will be no GI services available in the hospital. Patient has been accepted and bed available at [facility]. Thank you for this consultation, we will sign off at this time. Dr. Cari Parnell I agree with the dictator's note, documented as a scribe by Leia Carrington.
[2022-09-06] MEDS: RIFAXIMIN 550 MG TABLET PO SCH (08:23)
[2022-09-06] MEDS: THIAMINE 100 MG/ML 2 ML VIAL IVP SCH (08:23)
--- NOTE | 2022-09-06 09:12 | P.DS ---
Providers Date of admission: 09/03/22 23:02 Expected date of discharge: 09/06/22 Attending physician: Phil Fox Consults: 09/03/22 16:20 Consult Physician Urgent Consulting Provider: Fahad Llanes Consult Reason/Comments: elvia Do you want consulting provider notified?: Already Contacted Consult Physician Urgent Consulting Provider: Concetta Parnell Consult Reason/Comments: liver failure Do you want consulting provider notified?: Yes 09/03/22 16:21 Consult Physician Urgent Consulting Provider: Alden Collins Consult Reason/Comments: liver failure Do you want consulting provider notified?: Already Contacted 09/03/22 16:26 Consult Physician Urgent Consulting Provider: Jose Angel Johnson Consult Reason/Comments: dialysis needs Do you want consulting provider notified?: Yes 09/03/22 23:04 Consult Physician Urgent Consulting Provider: Flash Khoury Consult Reason/Comments: hepatic encephalopathy. Hypotension Do you want consulting provider notified?: Yes Consult Physician Urgent Consulting Provider: Concetta Parnell Consult Reason/Comments: hepatic encephalopathy Do you want consulting provider notified?: Yes 09/05/22 03:11 Consult Physician Stat Consulting Provider: Flash Khoury Consult Reason/Comments: ICU management Do you want consulting provider notified?: Already Contacted 09/05/22 11:44 Consult to Palliative Care Routine Consulting Provider: Elis Bello Consult Reason/Comments: goals of care Do you want consulting provider notified?: Already Contacted Primary care physician: [facility] Course: Final diagnoses Hepatic encephalopathy in a patient recently discharged from [facility] secondary to acute liver failure. Ammonia level 400 on admission. Acute renal failure, ATN secondary to hypotension. Emergent dialysis initiated. Metabolic acidosis secondary to the above, on bicarb drip Hypothermia Hypotension Alcoholic hepatitis Ascites Chronic Liver failure, worsening, established at the Hepatology clinic at [facility],Dr. 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 Patient currently obtunded, information being obtained from chart, staff and family at the bedside. Family reports patient has not consumed alcohol since his discharge ,exhibiting slow decline since his discharge from [facility] on 08/19/2022 for acute liver failure. Family states he started having excessive stooling, increased abdomen distention, weakness worsened, and EMS called for transport. Ammonia level on admission 400, started on rectal lactulose and Xifaxan. No bowel movement since admission. BUN 84, creatinine 8.88,temporary HD catheter placed for emergent dialysis.Maintained on pressor support with Levophed, vasopressin.WBC 5.6 hemoglobin 10.3, platelets 72 INR 3.0. Sodium 136, potassium 3.7, acidotic [id number], increased to 16, BUN 65 creatinine 6.95. Lactic acid 4.8, increased to 5.2, total bilirubin 17 AST 54 ALT 29 alkaline phosphatase 110 ammonia 62 lipase 1209-currently decreased to 382.Required Bear hugger,temperature improving. CT of abdomen and pelvis reporting ascites, fluid appears to extend into right inguinal hernia and into the right hemiscrotum,splenomegaly, bilateral femoral head changes suggestive for avascular necrosis. Some compression fractures may be present.Findings are similar to comparison study. Chest x-ray reported no acute process.Abdominal ultrasound reported ascites. Gallbladder ultrasound reports cholelithiasis, mild ascites, lobular appearance to liver. 09/05/2022 slightly more alert today. Maintained on lactulose with significant decrease in ammonia, 27. Continues on Levophed and vasopressin. FMS in place with stool. Afebrile, WBC within normal limits, lactic acid 1.9. hemoglobin 10.2, platelets 42, sodium 138, potassium 3.7. Currently on bicarb drip with bicarbonate WNL,23. Last hemodialysis yesterday, BUN 70, creatinine 6.89. Blood sugars stable. Hemodialysis as per nephrology. Maintaind on lactulose, Xifaxan, Zosyn, with close monitoring of ammonia,coags.,renal function. Critical bili of 17.7 this morning. No bloody bowel movements.WBC 6.2 hemoglobin 10 hematocrit 28.5 platelet count 38 INR 3.1 sodium 142 potassium 3.6 bicarb 23 BUN 80 creatinine 4.4. Ammonia 9. Patient is being transferred to [facility] tertiary care center related to acute liver failure, hepatic encephalopathy for further management with Child Neurologist in addition to no available GI services available at this site currently. Patient has been accepted and will transfer to [facility] in a stable condition with guarded prognosis. The impression and plan of care has been dictated as directed. : I performed a history and examination of this patient, discussed the same with the dictator. I agree with the dictator's note ,documented as a scribe. Any additional findings or plans will be noted. Plan - Discharge Summary New Discharge Prescriptions: No Action QUEtiapine [SEROquel] 100 mg PO HS Bictegrav/Emtricit/Tenofov Ala [Biktarvy 50-200-25 mg Tablet] 1 tab PO QAM Omeprazole 20 mg PO QAM Folic Acid 1 mg PO QAM Spironolactone [Aldactone] 25 mg PO QAM Lactulose [Constulose] 20 gm PO TID levETIRAcetam [Keppra] 1,000 mg PO QAM Melatonin [Melatonin Dissolving] 12 mg PO HS Tab-A-Brunilda 1 tab PO QAM Rifaximin [Xifaxan] 550 mg PO BID carvediloL [Coreg] 3.125 mg PO BID Discharge Medication List Bictegrav/Emtricit/Tenofov Ala [Biktarvy 50-200-25 mg Tablet] 1 tab PO QAM 08/14/22 [History] Lactulose [Constulose] 20 gm PO TID 08/14/22 [History] Melatonin [Melatonin Dissolving] 12 mg PO HS 08/14/22 [History] Omeprazole 20 mg PO QAM 08/14/22 [History] QUEtiapine [SEROquel] 100 mg PO HS 08/14/22 [History] Spironolactone [Aldactone] 25 mg PO QAM 08/14/22 [History] levETIRAcetam [Keppra] 1,000 mg PO QAM 08/14/22 [History] Folic Acid 1 mg PO QAM 09/03/22 [History] Rifaximin [Xifaxan] 550 mg PO BID 09/03/22 [History] Tab-A-Brunilda 1 tab PO QAM 09/03/22 [History] carvediloL [Coreg] 3.125 mg PO BID 09/03/22 [History] Follow up Appointment(s)/Referral(s): Phil Fox Jr, DO [Primary Care Provider] - 1-2 days Activity/Diet/Wound Care/Special Instructions: Transferred to [facility]
[2022-09-06] MEDS ORDERED: POTASSIUM CHLORIDE ER 20 MEQ TAB.ER PO STA (10:03)
--- NOTE | 2022-09-06 10:53 | P.PN ---
Subjective Progress Note Date: 09/06/22 I am seeing this patient in new consultation today 09/04/2022 for ICU management. We were asked to see this patient for ICU management, while the patient awaits a bed at [facility]. Patient is a 47-year-old white male with past medical history of end-stage liver disease, alcoholism, polysubstance abuse, hepatitis B, HIV, and schizophrenia. Patient was brought in by his mother for altered mental status. Patient did have a recent hospital admission at [facility] for liver failure. Patient was transferred to [facility], where he is established with his director of conservation Dr. Medrano. Apparently, patient was recently discharged from [facility] on August 19 for acute liver failure on lactulose and rifaximin. Patient's mother states that he has been taking all his medications as ordered. He has been experiencing frequent diarrhea. Patient is very jaundiced. Patient is completely obtunded, and I am unable to retrieve an HPI from him. On arrival to emergency room, patient was found to be in acute renal failure with a creatinine of 8.80, BUN 84. A left femoral temporary hemodialysis catheter was placed, and patient is currently receiving hemodialysis. He did become hypotensive with initiation of hemodialysis. He was fluid resuscitated with 3 L normal saline. Patient's blood pressure is improved with norepinephrine infusing at 0.17 mcg/kg/m. Patient also has sodium bicarbonate 3 A in D5W infusing at 100 mL per hour. He is hypothermic, and will need rewarming. Patient's LFTs are within defined limits. Ammonia level was 400 and recheck is down to 62. Lactulose is being given through a NG tube. CT of abdomen and pelvis on arrival showed ascites, right inguinal hernia, splenomegaly, and bilateral femoral head changes suggestive of avascular necrosis. Abdominal ultrasound showed a large pocket of ascites in the right lower quadrant. A gallbladder ultrasound done on patient's recent admission on 08/14/2022 showed no discrete liver mass, multiple gallstones, and mild gallbladder wall thickening suggestive of cholecystitis. Brain CT without contrast showed no acute intracranial process. Chest x-ray shows no acute cardiopulmonary process. CBC on arrival shows a WBC count of 7.6, hemoglobin 10.9, hematocrit hematocrit 31.3, platelets 53,000. Patient's coagulation profile is abnormal. No evidence of bleeding. Patient's BMP shows a sodium 133, potassium 4.5, chloride 107, serum CO2 11, BUN 84, creatinine 8.88, glucose of 77. Patient's total bilirubin was 15.1. Lipase 1200. Urine tox screen for opiates and TCAs. Serum alcohol level was less than 10. Patient was negative for COVID-19. He is receiving one dose of Rocephin in the emergency room. Blood and urine cultures were ordered. Patient's condition is critical, and he is waiting transfer to [facility]. In the meantime, patient will be admitted to the intensive care unit. Patient's CODE STATUS is DO NOT RESUSCITATE and DO NOT INTUBATE with exception of vasopressors I'm seeing this patient today 09/05/2022 in follow-up in the intensive care unit. Patient on room air, in no acute distress. Patient is much more alert today he is able to answer simple questions. He is still disoriented. Patient's mother is at bedside. The plan is still to transfer the patient to [facility] once bed available. He is established with his director of conservation at that facility. Patient did undergo hemodialysis yesterday, when he became quite hypotensive. He was started on norepinephrine which is currently infusing at 0.2 mics per kilogram per minute and vasopressin which is infusing at 0.03 units per minutes. Urine output was low throughout the night, and is picked up this morning and is in the order of 30-50 mL per hour. Patient's urine cultures show no growth at this point and blood cultures are pending. He is empirically covered on Zosyn. He did have an NG tube which he has inadvertently removed. He was receiving lactulose and rifaximin. Patient does have a Fecal management system with large amounts of liquid stool. Patient's repeat ammonia level was down to 62 at last recheck. Today's ammonia level is currently pending. BMP this morning shows a sodium 138, potassium 3.4, chloride 103, serum CO2 up to 23, BUN 70, creatinine 6.89, glucose 108. Patient is receiving sodium bicarb with 3 A and D5W infusing at 100 ML's per hour and this could probably be switched over to normal saline. Patient's lactic acid is down from 3.3 to 2.8 this morning. Patient's CBC this morning shows a WBC count of 11.2, hemoglobin 10.9, hematocrit 30.4, platelets low at 53,000. Patient's condition is critical and overall prognosis remains poor. on today's evaluation of 09/06/2022, the patient is fully alert and awake on room air oxygen. He is communicating. He denies having any specific complaints for now. His blood pressure has improved significantly and the patient is currently off pressors. Is off norepinephrine infusion and is also off vasopressin. He remains on IV Zosyn. No signs of any significant hepatic encephalopathy at this point in time. He is communicating. IV fluids are in the form of normal saline at the rate of 100 mL an hour. In terms of his blood work, the patient has a white cell count of 10 with a hemoglobin of 10 and a platelet count of 38. Correction, his white cell count is at 6.2. He is coagulopathic. INR is at 3.4 with a PT of 30.7. His renal function continues to improve and the patient is producing urine output in the order of 75 mL an hour. The patient has a BUN of 80 with a creatinine of 4.4. Sodium is at 142. LFTs are obviously abnormal and the bilirubin remains elevated at 17. He continues to be jaundiced. Serum cortisol is at 21. Serum ammonia level is down to 9. Objective - Vital Signs Vital signs: Vital Signs Temp 97.6 F 09/06/22 08:00 Pulse 85 09/06/22 10:00 Resp 17 09/06/22 10:00 BP 108/92 09/06/22 10:00 Pulse Ox 97 09/06/22 10:39 FiO2 Intake & Output 09/05/22 09/06/22 09/06/22 18:59 06:59 18:59 Intake Total 5726.560 5292.702 2578.825 Output Total 2470 830 280 Balance -540.894 795.222 3568.825 Weight 99.4 kg Intake: IV 1680 1300 450 Dextrose 5% in Water 1, 200 000 ml @ 100 mls/hr IV . [id number] BALA with Sodium Bicarb (1 Meq/ml) 150 ml Rx#:[id number] Invasive Line 2 90 30 Invasive Line 3 30 20 Piperacillin-Tazobactam 3 160 .375 gm In Sodium Chloride 0.9% 100 ml @ 25 mls/hr IVPB Q12H BALA Rx# :[id number] Potassium Chloride 20 meq 100 In Water For Injection 1 100ml.bag @ 50 mls/hr IVPB ONCE ONE Rx#: [id number] Potassium Chloride 20 meq 200 In Water For Injection 1 100ml.bag @ 50 mls/hr IVPB Q2H BALA Rx#: [id number] Sodium Chloride 0.9% 1, 1000 1200 400 000 ml @ 100 mls/hr IV . Q10H BALA Rx#:[id number] Intake, IV Titration 249.106 5.702 68.825 Amount Norepinephrine 32 mg In 92.281 5.702 Sodium Chloride 0.9% 218 ml @ 0.03 MCG/KG/MIN 1. 276 mls/hr IV .Q24H BALA Rx#:[id number] Vasopressin 60 unit In 156.825 68.825 Sodium Chloride 0.9% 150 ml @ 0.03 UNITS/MIN 4.59 mls/hr IV .Q24H BALA Rx#: [id number] Oral 2060 Output: Urine 1070 830 280 Stool 1400 Other: Voiding Method Indwelling Catheter Indwelling Catheter Indwelling Catheter - Exam GENERAL EXAM: More alert today, and answering simple questions. He is a malnourished, 47-year-old male, who is jaundiced HEAD: Normocephalic and atraumatic EYES: Right cornea is opaque, left pupil is reactive to light. Icteric sclera NOSE: Clear with pink turbinates. THROAT: No erythema or exudates. NECK: No masses, no JVD. CHEST: No chest wall deformity. LUNGS: Equal air entry with no crackles, wheeze, rhonchi or dullness. On room air. He is tachypneic. No accessory muscle use.. CVS: S1 and S2 normal with soft systolic ejection murmur, regular rhythm. No oth er extra heart sounds ABDOMEN: Abdomen is slightly less distended, there is hepatomegaly. Bowel yanci nds are hypoactive, no guarding or rigidity. SPINE: No scoliosis or deformity SKIN: Jaundice CENTRAL NERVOUS SYSTEM: tone is normal in all 4 extremities. More alert and answering simple questions and following commands EXTREMITIES: There is mild nonpitting edema, clubbing, or cyanosis. Peripheral pulses are intact. - Labs CBC & Chem 7: 09/06/22 05:12 09/06/22 05:12 Labs: Abnormal Lab Results - Last 24 Hours (Table) 09/05/22 09/05/22 09/06/22 Range/Units 18:20 18:20 05:12 RBC 2.61 L 2.60 L (4.30-5.90) m/uL Hgb 10.2 L 10.0 L (13.0-17.5) gm/dL Hct 28.2 L 28.5 L (39.0-53.0) % MCV 108.0 H 109.8 H (80.0-100.0) fL MCH 38.9 H 38.3 H (25.0-35.0) pg Plt Count 42 L 38 L (150-450) k/uL Lymphocytes # (Manual) 0.56 L (1.0-4.8) k/uL Macrocytosis Marked A PT (9.0-12.0) sec INR (<1.2) Chloride (98-107) mmol/L BUN (9-20) mg/dL Creatinine (0.66-1.25) mg/dL Calcium (8.4-10.2) mg/dL Magnesium 2.6 H (1.6-2.3) mg/dL Total Bilirubin (0.2-1.3) mg/dL AST (17-59) U/L ALT (4-49) U/L Total Protein (6.3-8.2) g/dL Albumin (3.5-5.0) g/dL 09/06/22 09/06/22 Range/Units 05:12 05:12 RBC (4.30-5.90) m/uL Hgb (13.0-17.5) gm/dL Hct (39.0-53.0) % MCV (80.0-100.0) fL MCH (25.0-35.0) pg Plt Count (150-450) k/uL Lymphocytes # (Manual) (1.0-4.8) k/uL Macrocytosis PT 30.7 H (9.0-12.0) sec INR 3.1 H (<1.2) Chloride 109 H (98-107) mmol/L BUN 80 H (9-20) mg/dL Creatinine 4.41 H (0.66-1.25) mg/dL Calcium 7.0 L (8.4-10.2) mg/dL Magnesium (1.6-2.3) mg/dL Total Bilirubin 17.7 H* (0.2-1.3) mg/dL AST 188 H (17-59) U/L ALT 59 H (4-49) U/L Total Protein 6.1 L (6.3-8.2) g/dL Albumin 2.0 L (3.5-5.0) g/dL Microbiology - Last 24 Hours (Table) 09/04/22 08:51 Blood Culture - Preliminary Blood Assessment and Plan Assessment: Hypotension with suspected sepsis. Blood cultures are still pending. Urine culture shows no growth at this point. Patient's chest x-ray from yesterday showed no focal consolidation or evidence pneumonia. Patient's abdomen is less distended today. Abdominal and pelvis CT on admission showed no evidence of acute abdomen. the patient's blood pressure is normalized and the patient is currently off pressors. Is currently on midodrine 10 mg by mouth 3 times a day. Altered mental status secondary to hepatic and uremic encephalopathy, improved , ammonia normalized and the patient is currently on Xifaxan and lactulose. History of End-stage liver disease. Patient is established with his director of conservation Dr. Medrano at [facility]. Acute renal failure. Patient did receive hemodialysis at a time of admission, currently off dialysis as the patient's renal function continues to improve and the patient is producing adequate amount of urine output Acute anion gap metabolic acidosis, improving Lactic acidosis was 3.3 down to 2.8 Dehydration, recovered Hypothermia, resolved Thrombocytopenia secondary to alcoholism Coagulopathy secondary to liver failure Macrocytic anemia Alcoholism, last drink was reportedly earlier this month History of polysubstance abuse History of hepatitis B HIV positive Schizophrenia Plan: hepatic encephalopathy improved Hemodynamically improved No hemodialysis for today We'll discontinue this serum bicarb replacement and we'll put the patient on normal saline Continues to have signs of overt an obvious liver failure Can be transferred to the medical floor if no pressors requirement over the next 3-6 hours Continue IV Zosyn for now Ultimately on his chest with this patient to [facility] for another l iver evaluation. Agree on midodrine Patient is awaiting transfer to [facility], he will be monitored in the intensive care unit until then Patient's prognosis is poor, and he is a DO NOT RESUSCITATE and DO NOT INTUBATE. We will continue to follow
[2022-09-06] MEDS ORDERED: LACTULOSE 20 GM/30 ML CUP PO SCH (11:00)
--- NOTE | 2022-09-06 11:13 | P.PN ---
Subjective Patient is seen in follow-up for acute kidney injury. Last hemodialysis 09/04/2022. Currently off Levophed and vasopressin. On normal saline. No noliguric. Mentation improved Blood pressure stable. Family present at bedside. Vital signs are stable. General: Awake. No acute distress. HEENT: Head exam is unremarkable. LUNGS: No audible rhonchi or wheezes. HEART: Rate and Rhythm are regular. ABDOMEN: Soft, mild distention noted. EXTREMITITES: No edema. Jaundice noted. Objective - Vital Signs Vital signs: Vital Signs Temp 97.6 F 09/06/22 08:00 Pulse 85 09/06/22 10:00 Resp 17 09/06/22 10:00 BP 108/92 09/06/22 10:00 Pulse Ox 97 09/06/22 10:39 FiO2 Intake & Output 09/05/22 09/06/22 09/06/22 18:59 06:59 18:59 Intake Total 5881.486 1147.702 2578.825 Output Total 2470 830 280 Balance -540.894 341.204 8616.825 Weight 99.4 kg Intake: IV 1680 1300 450 Dextrose 5% in Water 1, 200 000 ml @ 100 mls/hr IV . [id number] BALA with Sodium Bicarb (1 Meq/ml) 150 ml Rx#:[id number] Invasive Line 2 90 30 Invasive Line 3 30 20 Piperacillin-Tazobactam 3 160 .375 gm In Sodium Chloride 0.9% 100 ml @ 25 mls/hr IVPB Q12H BALA Rx# :[id number] Potassium Chloride 20 meq 100 In Water For Injection 1 100ml.bag @ 50 mls/hr IVPB ONCE ONE Rx#: [id number] Potassium Chloride 20 meq 200 In Water For Injection 1 100ml.bag @ 50 mls/hr IVPB Q2H BALA Rx#: [id number] Sodium Chloride 0.9% 1, 1000 1200 400 000 ml @ 100 mls/hr IV . Q10H BALA Rx#:[id number] Intake, IV Titration 249.106 5.702 68.825 Amount Norepinephrine 32 mg In 92.281 5.702 Sodium Chloride 0.9% 218 ml @ 0.03 MCG/KG/MIN 1. 276 mls/hr IV .Q24H BALA Rx#:[id number] Vasopressin 60 unit In 156.825 68.825 Sodium Chloride 0.9% 150 ml @ 0.03 UNITS/MIN 4.59 mls/hr IV .Q24H BALA Rx#: [id number] Oral 2060 Output: Urine 1070 830 280 Stool 1400 Other: Voiding Method Indwelling Catheter Indwelling Catheter Indwelling Catheter - Labs CBC & Chem 7: 09/06/22 05:12 09/06/22 05:12 Labs: Abnormal Lab Results - Last 24 Hours (Table) 09/05/22 09/05/22 09/06/22 Range/Units 18:20 18:20 05:12 RBC 2.61 L 2.60 L (4.30-5.90) m/uL Hgb 10.2 L 10.0 L (13.0-17.5) gm/dL Hct 28.2 L 28.5 L (39.0-53.0) % MCV 108.0 H 109.8 H (80.0-100.0) fL MCH 38.9 H 38.3 H (25.0-35.0) pg Plt Count 42 L 38 L (150-450) k/uL Lymphocytes # (Manual) 0.56 L (1.0-4.8) k/uL Macrocytosis Marked A PT (9.0-12.0) sec INR (<1.2) Chloride (98-107) mmol/L BUN (9-20) mg/dL Creatinine (0.66-1.25) mg/dL Calcium (8.4-10.2) mg/dL Magnesium 2.6 H (1.6-2.3) mg/dL Total Bilirubin (0.2-1.3) mg/dL AST (17-59) U/L ALT (4-49) U/L Total Protein (6.3-8.2) g/dL Albumin (3.5-5.0) g/dL 09/06/22 09/06/22 Range/Units 05:12 05:12 RBC (4.30-5.90) m/uL Hgb (13.0-17.5) gm/dL Hct (39.0-53.0) % MCV (80.0-100.0) fL MCH (25.0-35.0) pg Plt Count (150-450) k/uL Lymphocytes # (Manual) (1.0-4.8) k/uL Macrocytosis PT 30.7 H (9.0-12.0) sec INR 3.1 H (<1.2) Chloride 109 H (98-107) mmol/L BUN 80 H (9-20) mg/dL Creatinine 4.41 H (0.66-1.25) mg/dL Calcium 7.0 L (8.4-10.2) mg/dL Magnesium (1.6-2.3) mg/dL Total Bilirubin 17.7 H* (0.2-1.3) mg/dL AST 188 H (17-59) U/L ALT 59 H (4-49) U/L Total Protein 6.1 L (6.3-8.2) g/dL Albumin 2.0 L (3.5-5.0) g/dL Microbiology - Last 24 Hours (Table) 09/04/22 08:51 Blood Culture - Preliminary Blood Assessment and Plan Plan: Assessment: 1. Acute kidney injury secondary to ATN secondary to hypotension. Creatinine 8.88 on admission. Baseline creatinine 0.6 as of 08/15/2022. Now nonoliguric. Started on renal replacement therapy 09/03/2022 due to severe renal failu re/hyperammonemia, acidosis, oliguria. Last hemodialysis treatment 09/04/2022. No hydronephrosis noted on kidney ultrasound. 2. Alcohol liver disease. Patient follows at [facility]. 3. Metabolic acidosis secondary to acute kidney injury. s/p bicarb drip. 4. Hepatic encephalopathy. Ammonia level improved. 5. Ascites. May need paracentesis this admission. 6. Hypokalemia from intracellular shifting from IV bicarb and poor intake. Plan: Continue to hold dialysis. Maintain normal saline. Maintain midodrine. Replace potassium. Continue to monitor renal function and urine output. Prognosis guarded. Awaits transfer to [facility].
[2022-09-06 12:05] LABS: Glucose,Whole Blood 126 mg/dL (70-110)
[2022-09-06 12:13] VITALS: BMI 30.5
[2022-09-06 15:01] VITALS: BP 96/63; PULSE 84; RESP 16; TEMP 97.7
== END 2022-09-06 16:28 | disposition short-term general hospital (02) | DRG 441 ==
LOC: EC 10:22 → 2SICU 23:02
PROVIDERS: ADMIT Family Medicine; ATTEND Family Medicine
PROC: 0D9670Z Drainage of Stomach with Drainage Device, Via Natural or Artificial Opening (ICD-10-PCS; principal; 2022-09-03)
PROC: 3E043XZ Introduction of Vasopressor into Central Vein, Percutaneous Approach (ICD-10-PCS; 2022-09-03)
DX: K76.82 Hepatic encephalopathy (principal); N17.0 Acute kidney failure with tubular necrosis; B20 Human immunodeficiency virus [HIV] disease; D68.4 Acquired coagulation factor deficiency; M87.852 Other osteonecrosis, left femur; M87.851 Other osteonecrosis, right femur; R57.9 Shock, unspecified; D53.9 Nutritional anemia, unspecified; D69.59 Other secondary thrombocytopenia; R68.0 Hypothermia, not associated with low environmental temperature; K70.11 Alcoholic hepatitis with ascites; Z28.311 Partially vaccinated for COVID-19; Z66 Do not resuscitate; R45.1 Restlessness and agitation; F31.9 Bipolar disorder, unspecified; F20.9 Schizophrenia, unspecified; N18.9 Chronic kidney disease, unspecified; E78.5 Hyperlipidemia, unspecified; E86.0 Dehydration; F15.10 Other stimulant abuse, uncomplicated; F11.10 Opioid abuse, uncomplicated; I12.9 Hypertensive chronic kidney disease with stage 1 through stage 4 chronic kidney disease, or unspecified chronic kidney disease; K74.60 Unspecified cirrhosis of liver; E87.6 Hypokalemia; F17.210 Nicotine dependence, cigarettes, uncomplicated; F41.0 Panic disorder [episodic paroxysmal anxiety]; K40.90 Unilateral inguinal hernia, without obstruction or gangrene, not specified as recurrent; R04.0 Epistaxis; Z20.822 Contact with and (suspected) exposure to COVID-19; Z82.49 Family history of ischemic heart disease and other diseases of the circulatory system; Z88.1 Allergy status to other antibiotic agents; Z79.899 Other long term (current) drug therapy; Z86.19 Personal history of other infectious and parasitic diseases
CPT/HCPCS: 36415; 51702; 70450; 71045; 71046; 74176; 76705; 80048; 80053; 80306; 80320; 81001; 82140; 82248; 82533; 83605; 83690; 83735; 84132; 84443; 84484; 85025; 85027; 85610; 85730; 87040; 87086; 87635; 90935; 93005; 96361; 96365; 96366; 96367; 96368; 96375; 99291

== ENCOUNTER → 2024-03-03 | Outpatient (CLI) | payer MEDICARE, OTHER ==
[2024-03-03 15:31] LABS: ALT 17 U/L (10-49); AST 34 U/L (14-35); Albumin 3.7 g/dL (3.8-4.9); Albumin/Globulin Ratio 1.19 Ratio (1.60-3.17); Alkaline Phosphatase 108 U/L (41-126); BUN/Creat Ratio 9.56 Ratio (12.00-20.00); Bilirubin, Conjugated 0.59 mg/dL (0.20-0.40); Bilirubin,Unconjugated 0.81 mg/dL (0.20-1.00); Blood Urea Nitrogen 8.6 mg/dL (9.0-27.0); Calcium 8.9 mg/dL (8.7-10.3); Carbon Dioxide 23.5 mmol/L (21.6-31.8); Chloride 108 mmol/L (96-109); Globulin 3.1 g/dL (1.6-3.3); Glucose 91 mg/dL (70-110); Potassium 3.9 mmol/L (3.5-5.5); Sodium 141 mmol/L (135-145); Total Bilirubin 1.4 mg/dL (0.3-1.2); Total Protein 6.8 g/dL (6.2-8.2)
[2024-03-03 16:00] LABS: INR 1.35 sec (0.93-1.11); Prothrombin Time 14.3 sec (9.9-11.9)
[2024-03-03 16:03] LABS: Basophils # (A) 0.01 X 10*3/uL (0.00-0.10); Basophils % (A) 0.3 %; Eosinophils # (A) 0.09 X 10*3/uL (0.04-0.35); HCT 37.9 % (39.6-50.0); HGB 12.2 g/dL (13.0-17.0); Immature Platelet Fraction 6.2 % (1.1-6.1); Lymphocytes # (A) 1.26 X 10*3/uL (0.90-5.00); Lymphocytes % (A) 41.7 %; MCH 27.8 pg (27.0-32.0); MCHC 32.2 g/dL (32.0-37.0); MCV 86.3 FL (80.0-97.0); Monocytes # (A) 0.36 X 10*3/uL (0.20-1.00); Monocytes % (A) 11.9 %; NRBC Per 100 WBC 0 X 10*3/uL (0.00-0.01); Neutrophils # (A) 1.29 X 10*3/uL (1.80-7.70); Neutrophils % (A) 42.8 %; Platelet Count 69 X 10*3/uL (140-440); RBC 4.39 X 10*6/uL (4.40-5.60); WBC 3.02 X 10*3/uL (4.50-10.00)
== END | disposition home or self-care (01) ==
LOC: LABWHC1 11:40
PROVIDERS: ATTEND Physician Assistant
DX: K74.60 Unspecified cirrhosis of liver (principal)
CPT/HCPCS: 36415; 80048; 80076; 82105; 85025; 85610

== ENCOUNTER 2024-08-13 16:24 | Emergency (ER) | payer MEDICARE, OTHER ==
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
[2024-08-13] MEDS: KETOROLAC 15 MG/ML 1 ML VIAL IM STA (17:26)
[2024-08-13 18:13] VITALS: BP 116/79; PULSE 70; RESP 20; TEMP 97.7
== END 2024-08-13 18:13 | disposition home or self-care (01) ==
LOC: EC 16:24
DX: S20.219A Contusion of unspecified front wall of thorax, initial encounter (principal); Z87.891 Personal history of nicotine dependence; Z88.1 Allergy status to other antibiotic agents; V89.2XXA Person injured in unspecified motor-vehicle accident, traffic, initial encounter
CPT/HCPCS: 71101; 99284; 96372; J1885